=== PATIENT | female | born 1960 | race Caucasian/White ===

== ENCOUNTER 2020-12-01 07:10 | Outpatient (CLI) | payer OTHER, SELFPAY ==
--- NOTE | ~2020-12-01 | XR_ITS ---
XR foot RT min 3V DATE: 12/01/2020 07:47 INDICATION: Chronic bilateral foot pain. TECHNIQUE: 4 weightbearing views COMPARISON: None FINDINGS: Prominent plantar calcaneal enthesopathy without associated erosive change or periostitis. There is osteoarthritic change at the tarsometatarsal joints, particularly at the first tarsometatars al joint. There is osteoarthritic change of mild to moderate degree at the first metatarsophalangeal joint. No fracture, dislocation, periosteal reaction or bone destruction. IMPRESSION: Prominent calcaneal enthesopathy Polyarticular osteoarthritis Reviewed, dictated and finalized at location B.
--- NOTE | ~2020-12-01 | XR_ITS ---
XR foot LT min 3V DATE: 12/01/2020 07:48 INDICATION: Chronic bilateral foot pain TECHNIQUE: 4 weightbearing views COMPARISON: None FINDINGS: Prominent plantar calcaneal enthesopathy without erosive change or periostitis. There is hallux valgus and bunion deformity. There is mild osteoarthritic change at the first metatarsophalangeal joint. No fracture, dislocation, periosteal reaction or bone destruction is detected. IMPRESSION: Prominent plantar calcaneal enthesopathy Hallux valgus and bunion deformity Mild osteoarthritic arthritis at first metatarsophalangeal joint Reviewed, dictated and finalized at location B.
== END 2020-12-01 07:11 | disposition home or self-care (01) ==
LOC: CHSLAB 07:14 → CHSIMG 07:14
PROVIDERS: PCP Internal Medicine; Visit Provider Podiatrist
DX: M79.672 Pain in left foot (principal); M79.671 Pain in right foot; M21.612 Bunion of left foot
CPT/HCPCS: 73630

== ENCOUNTER 2021-05-06 09:35 | Outpatient (CLI) | payer OTHER, SELFPAY ==
[2021-05-06 10:25] LABS: SARS-CoV-2 Ag Negative (Negative)
[2021-05-06 10:31] LABS: Influenza Control Valid (Valid)
== END 2021-05-06 09:36 | disposition home or self-care (01) ==
LOC: CHSLAB 09:40
PROVIDERS: PCP Internal Medicine; Visit Provider Internal Medicine
DX: J06.9 Acute upper respiratory infection, unspecified (principal); Z20.822 Contact with and (suspected) exposure to COVID-19
CPT/HCPCS: 87081; 87426; 87804; 87880; C9803

== ENCOUNTER 2021-06-08 07:16 | Outpatient (CLI) | payer OTHER, SELFPAY ==
--- NOTE | ~2021-06-08 | MM_ITS ---
EXAMINATION: MM screening brandy BI w [place] HISTORY: Screening TECHNIQUE: Craniocaudal and mediolateral oblique 3-D tomosynthesis images were obtained and synthetic 2-D images were generated. CAD analysis was submitted and interpreted. COMPARISON: 05/18/2018 BREAST PARENCHYMAL COMPOSITION: There are scattered areas of fibroglandular density. FINDINGS: There is no evidence of suspicious mass, calcification, or architectural distortion to sugg est malignancy in either breast. There has been no suspicious interval change. IMPRESSION: 1. No mammographic evidence of malignancy. 2. Recommend routine screening mammography in one year. BI-RADS Category 1: Negative Reviewed, dictated and finalized at location A. EXPERIENCE ARCHITECT
== END 2021-06-08 07:17 | disposition home or self-care (01) ==
LOC: CHSIMG 07:19
PROVIDERS: PCP Internal Medicine; Visit Provider Obstetrics & Gynecology
DX: Z12.31 Encounter for screening mammogram for malignant neoplasm of breast (principal)
CPT/HCPCS: 77063; 77067

== ENCOUNTER 2022-06-10 08:35 | Outpatient (CLI) | payer BC, SELFPAY ==
--- NOTE | ~2022-06-10 | MM_ITS ---
EXAMINATION: MM screening brandy BI w [place] HISTORY: Screening mammogram TECHNIQUE: Craniocaudal and mediolateral oblique 3-D tomosynthesis images were obtained and synthetic 2-D images were generated. CAD analysis was submitted and interpreted. COMPARISON: June 2021 bilateral screening mammogram March 20, 2019 diagnostic left mammogram and limited left breast ultrasound examination July 13, 2018 left mammogram and limited left breast ultrasound May 18, 2018 bilateral screening mammogram BREAST PARENCHYMAL COMPOSITION: There are scattered areas of fibroglandular density. FINDINGS: Slightly diminished size of a circumscribed approximately 4 mm opacity in the anterior inne r mid left breast since June 08, 2021. There is no evidence of suspicious mass, calcification, or architectural distortion to suggest malignancy in either breast. There has been no suspicious interva l change. IMPRESSION: 1. No mammographic evidence of malignancy. 2. Recommend routine screening mammography in one year. BI-RADS Category 2: Benign finding(s). Reviewed, dictated and finalized at location A. ING CONSULTANT
== END 2022-06-10 08:36 | disposition home or self-care (01) ==
LOC: CHSIMG 08:38
PROVIDERS: PCP Internal Medicine; Visit Provider Nurse Practitioner Obstetrics & Gynecology
DX: Z12.31 Encounter for screening mammogram for malignant neoplasm of breast (principal)
CPT/HCPCS: 77063; 77067

== ENCOUNTER 2023-02-02 08:05 | Outpatient (RCR) | payer OTHER, SELFPAY ==
[2023-02-02 08:19] VITALS: BMI 36.8
[2023-02-02 09:43] VITALS: BMI 36.8
== END 2023-04-25 12:05 | disposition home or self-care (01) ==
LOC: ANHDMC 08:05
PROVIDERS: PCP Internal Medicine; Visit Provider Internal Medicine
DX: R63.5 Abnormal weight gain (principal); Z71.3 Dietary counseling and surveillance
CPT/HCPCS: 97802

== ENCOUNTER 2023-02-15 08:54 | Emergency (ER) | payer OTHER, SELFPAY ==
--- NOTE | ~2023-02-15 | CT_ITS ---
EXAMINATION: CT abdomen pelvis wo con DATE: 02/15/2023 10:18 INDICATION: Left flank pain, left lower quadrant pain, nausea and hematuria. TECHNIQUE: Computed tomography (CT) of the abdomen and pelvis was performed without intravenous contr ast. Automated exposure control and iterative reconstruction technique were employed. The dose-length product was 514.89 mGy-cm. COMPARISON: None FINDINGS: Mild bibasilar discoid atelectasis. Heart size is normal. No pericardial or pleural effusion. Liver, gallbladder, spleen, pancreas and bilateral adrenal glands are normal. Right kidney and ureter are no rmal with no urolithiasis. 3-4 mm stone at the left ureteropelvic junction with mild left hydronephro sis. No other urolithiasis. Bowels including the appendix are normal. Bladder, anteverted uterus and bilateral adnexa are unremarkable. No free intraperitoneal gas or fluid. No pathologically enlarged a bdominal or pelvic lymphadenopathy. Moderate thoracolumbar spondylosis. IMPRESSION: 1. 3-4 mm stone at the left ureteral pelvic junction with mild left hydronephrosis. Reviewed, dictated and finalized at location A. IMPRESSION: 1. 3-4 mm stone at the left ureteral pelvic junction with mild left hydronephro sis.
[2023-02-15 09:00] VITALS: BP 146/74; PULSE 71; RESP 20; TEMP 36.9; O2SAT 99
--- NOTE | 2023-02-15 09:15 | ED.ABDPAIN ---
HPI - Abdominal Pain General Chief Complaint: Abdominal Pain Stated Complaint: abdominal pain Time Seen by Provider: 02/15/23 09:14 Source: patient Mode of arrival: ambulatory Limitations: no limitations History of Present Illness HPI narrative: 62-year-old female with a history of hypertension, status post 26 years ago, recent antibiotic treatment for a dental procedure presents to the ER with 1 hour history of -- left lower quadrant / left flank abdominal pain. Pain is continuous. no fever or chills. No nausea /vomiting / diarrhea. -- Has dysuria and hematuria. No history of kidney stones. MD elicited complaint: abdominal pain Pertinent past history: none Onset (ago): hour(s) ( Started 1 hour ago.) Pain Consistency: constant Location: LLQ Severity: moderate Quality: aching Radiation: L flank Exacerbating factors: nothing Relieving factors: nothing Associated symptoms: denies other symptoms Related Data Allergies Allergy/AdvReac Type Severity Reaction Status Date / Time No Known Allergies Allergy Verified 02/15/23 09:27 Review of Systems Review of Systems: All systems reviewed & are unremarkable except as noted in HPI and below Constitutional: Constitutional: Reports as per HPI and Reports no additional constitutional complaints Eyes: Eyes: Reports as per HPI and Reports no additional eye complaints ENT: Reports system reviewed and no additional complaints, except as documented and Reports as per HPI Cardiovascular: Cardiovascular: Reports as per HPI and Reports no additional cardiovascular complaints Respiratory: Respiratory: Reports as per HPI and Reports no additional respiratory complaints Gastrointestinal: Gastrointestinal: Reports as per HPI, Reports no additional gastrointestinal complaints and Reports abdominal pain Genitourinary: Genitourinary: Reports no additional female genitourinary complaints and Reports as per HPI Musculoskeletal: Musculoskeletal: Reports no additional musculoskeletal complaints and Reports as per HPI Integumentary/Breasts: Skin/Breast: Reports system reviewed and no additional complaints, except as docu and Reports as per HPI Neurologic: Reports system reviewed and no additional complaints, except as documented and Reports as per HPI Psychiatric: Psychiatric: Reports no additional psychiatric complaints and Reports as per HPI Endocrine: Endocrine: Reports no additional endocrine complaints and Reports as per HPI Hematologic/Lymphatic: Hematologic/Lymphatic: Reports no additional hematologic/lymphatic complaints and Reports as per HPI Allergic/Immunologic: Allergic/Immunologic: Reports no additional allergic/immunologic complaints and Reports as per HPI PMFSH Past Medical History Medical History (Updated 02/15/23 @ 10:59 by Soham Almeida MD) section wound complication Hypertension Social History Social History Spiritual care concerns: No Exam Const: General: no acute distress Nutritional Appearance: well nourished Orientation/consciousness: patient oriented x3 Limitations: no limitations HENMT: Head: normal to inspection Ears: external ears normal Face/Nose/Sinus: Normal external nose present Face and sinus: normal facial exam Mouth: Yes Normal oral and palatal mucosa present Throat: posterior oropharynx normal Eyes: Conjunctivae: conjunctivae normal Pupils: Equal, round and reactive pupils present EOM: EOMs intact bilaterally Direct Ophthalmoscopy: no photophobia Neck: Neck: normal visual inspection and no lymphadenopathy Chest: Chest palpation & inspection: normal inspection of the chest Resp: Effort & Inspection: normal respiratory effort Auscultation: clear to auscultation bilaterally Cardio: Rate: regular rate Rhythm: regular rhythm GI: GI Palp: Yes Soft to palpation Other: tenderness over the left lower quadrant and left flank. : General: Yes CVA tenderness Back/Spine/Pelvis: Back: CVA tenderness
[2023-02-15 09:30] LABS: Appearance Urine Slightly Cloudy (Clear); Bilirubin Urine Negative (Negative); Blood Urine 3+ (Negative); Color Urine Light Yellow (Yellow); Glucose Urine UA Negative (Negative); Ketones Urine Negative (Negative); Leukocyte Esterase Ur 1+ LEU/UL (Negative); Nitrate Urine Negative (Negative); Protein Urine Trace (Negative); Urobilinogen Urine 0.2 mg/dL (0.2-1.0); pH Urine 7.5 (5.0-8.0)
[2023-02-15 09:38] LABS: Basophils Absolute Auto 0.06 K/mm3 (0.00-0.10); Basophils Percent Auto 0.7 % (0.0-1.0); Eosinophils Absolute Auto 0.11 K/mm3 (0.02-0.50); Eosinophils Percent Auto 1.2 % (1.0-6.0); Hemoglobin 14.7 g/dL (12.0-15.0); Immature Granulocyte Absolute 0.05 K/mm3 (0.00-0.00); Immature Granulocyte Percent A 0.6 % (0.0-0.0); Lymphocytes Percent Auto 23.1 % (18.0-42.0); Mean Corpuscular HGB Conc 32.7 g/dL (32.0-36.0); Mean Corpuscular Hemoglobin 26.9 pg (27.0-31.0); Mean Corpuscular Volume 82.4 fL (78.0-102.0); Mean Platelet Volume 9.7 fl (9.2-11.8); Monocytes Absolute Auto 0.45 K/mm3 (0.10-0.90); Neutrophils Absolute Auto 6.3 K/mm3 (1.7-7.2); Neutrophils Percent Auto 69.4 % (50.0-70.0); Platelet Count Result 285 K/mm3 (150-420); Red Blood Count 5.46 M/mm3 (4.20-5.40); Red Cell Distribution Width 14.6 % (11.6-14.4); White Blood Count 9.1 K/mm3 (4.8-10.8)
[2023-02-15 09:40] LABS: Add Urine Microscopic? YES; Bacteria Urine Trace /hpf; RBC Urine 51-75 /hpf (0-2); Squamous Epithelial Cell Urine Few /hpf (Few)
[2023-02-15] MEDS: LACTATED RINGERS 500 ML 999 ML IV CONT (09:43)
[2023-02-15 10:00] LABS: Alanine Aminotransferase 21 U/L (14-59); Albumin Level 3.3 g/dL (3.4-5.0); Alkaline Phosphatase 79 U/L (46-116); Anion Gap 13 mmol/L (8-16); Aspartate Amino Transferase 11 U/L (15-37); Bilirubin,Total 0.6 mg/dL (0.00-1.00); Blood Urea Nitrogen 21 mg/dL (7-18); Carbon Dioxide 26 mmol/L (21-32); Chloride 102 mmol/L (98-108); Estimated CRCL calculation 53 ml/min; Estimated Glomerular Filt Rate 51; Glucose 118 mg/dL (70-99); Osmolality Calculated 296 mOsm/kg (285-295); Potassium 3.1 mmol/L (3.5-5.1); Sodium 141 mmol/L (136-145); Total Protein 6.8 g/dL (6.4-8.2)
[2023-02-15] MEDS: ONDANSETRON INJ 4 MG/2 ML VIAL IV PUSH (10:00)
[2023-02-15 10:01] LABS: Lipase 71 U/L (16-77); Troponin I < 4.0 ng/L (0.00-60.4)
[2023-02-15] MEDS: HYDROmorphone HCL INJ (*CRX) 2 MG/ML VIAL 0.5 MG IV PUSH (10:01)
[2023-02-15 10:05] VITALS: BP 157/84; PULSE 80; RESP 20; O2SAT 100
[2023-02-15 10:05] LABS: Lactic Acid Reflex 1.7 mmol/L (0.4-2.0)
[2023-02-15] MEDS: LACTATED RINGERS 1,000 ML 999 ML IV CONT (10:40)
[2023-02-15] MEDS: KETOROLAC 30 MG/ML VIAL (*BKC) IV PUSH (10:40)
[2023-02-15] MEDS: TAMSULOSIN HCL 0.4 MG CAPSULE PO (10:44)
[2023-02-15 11:07] VITALS: BP 121/63; PULSE 84; RESP 20; O2SAT 95
--- NOTE | 2023-02-18 13:08 | PC.NURSE ---
final urine culture report reviewed. 50,000-100,000 escherichia coli reported. erp, dr busch, reviewed chart. states no change in pt plan of care.
== END 2023-02-15 11:30 | disposition home or self-care (01) ==
PROVIDERS: Emergency Provider Internal Medicine Critical Care Medicine; PCP Internal Medicine
DX: N20.0 Calculus of kidney (principal); I10 Essential (primary) hypertension
CPT/HCPCS: 36415; 74176; 80053; 81001; 83605; 83690; 84484; 85025; 87077; 87086; 87088; 87186; 96361; 96374; 96375; 99284; A9270; J1170; J1885; J2405; J7120

== ENCOUNTER 2023-02-15 23:18 | Inpatient (IN) | payer OTHER, SELFPAY ==
--- NOTE | 2023-02-15 | ECG_ITS ---
Measurements Intervals [place] Rate: 99 P: 5 MT: 147 QRS: 23 QRSD: 87 T: 0 QT: 335 QTc: 430 Interpretive Statements SINUS RHYTHM POSSIBLE ANTERIOR MYOCARDIAL INFARCTION , PROBABLY OLD [30 ms Q WAVE IN V3/V4, OR R < 0.2 mV IN V4] POSSIBLE INFERIOR MYOCARDIAL INFARCTION , PROBABLY OLD [30 ms Q WAVE IN II/aVF] LOW-VOLTAGE QRS IN PRECORDIAL LEADS ABNORMAL ECG NO PREVIOUS ECG AVAILABLE FOR COMPARISON Electronically Signed On 02-16-2023 17:12:30 CDT by Lorenzo Stewart M.D.
--- NOTE | ~2023-02-15 | XR_ITS ---
EXAMINATION: XR retrograde pyelo w/stent LT DATE: 02/16/2023 03:47 INDICATION: Nephrolithiasis with stone placement TECHNIQUE: 13 fluoroscopic images of the abdomen and pelvis were obtained during procedure performed by Dr. Porras. Radiologist was not present for the imaging or procedure. The amount of fluoroscopy ti me used during this procedure was 0.3 minutes. COMPARISON: CT dated 02/15/2023 FINDINGS: Line image demonstrates a catheter and wire advanced into the left ureter. Subtle density s een alongside the wire and the proximal left ureter corresponding to the previously noted UPJ stone. This is not identified on the subsequent images. Contrast injection into the right renal collecting s ystem demonstrates no significant hydronephrosis. A left intrarenal stent has been placed on the eryn l images with proximal tip in the left renal pelvis and distal loop formed in the bladder. IMPRESSION: 1. Left internal ureteral stent placement in expected position. 2. Renal stone initially seen at the ureteropelvic junction is not visualized on subsequent images an d has either been displaced or extracted. Correlate with procedure note for further detail. Reviewed, dictated and finalized at location A. IMPRESSION: 1. Left internal ureteral stent placement in expected position. 2. Renal stone initially seen at the ureteropelvic junction is not visualized o n subsequent images and has either been displaced or extracted. Correlate with procedure note for further detail.
--- NOTE | ~2023-02-15 | XR_ITS ---
Portable chest x-ray Comparison: 02/16/2023 Clinical History: Septic shock Findings: Right IJ line is unchanged. Probable minimal hazy left basilar airspace disease. Right christiano g clear. Cardiomediastinal silhouette is stable. Bones and soft tissues are unremarkable. Impression: Minimal haziness left lung base, nonspecific. Correlate for atelectasis or pneumonia. Stable right IJ line. Reviewed, dictated and finalized at location . Impression: Minimal haziness left lung base, nonspecific. Correlate for atelectasis or pneu monia. Stable right IJ line.
--- NOTE | ~2023-02-15 | XR_ITS ---
Portable chest x-ray Comparison: 02/18/2023 Clinical History: Shortness of breath Findings: There is patchy left basilar airspace disease and probable minimal left pleural effusion. There is minimal haziness medial right lung base. Cardiomediastinal silhouette is stable. Bones and soft tissues are unremarkable. Impression: Probable bibasilar pulmonary edema/atelectasis with minimal left pleural effusion. Correlate clinical ly for pneumonia. Reviewed, dictated and finalized at location . Impression: Probable bibasilar pulmonary edema/atelectasis with minimal left pleural effusi on. Correlate clinically for pneumonia.
--- NOTE | ~2023-02-15 | XR_ITS ---
EXAMINATION: XR chest 1V portable Exam Date/Time: 02/18/2023 15:15 CDT HISTORY: Shortness of breath Comparison: 02/06/2023. RESULT: Lines, tubes, and devices: Right IJ central line terminating at the cavoatrial junction. Lungs and pleura: Patchy segmental airspace disease in the right mid lung with indistinct vessels bi laterally. Streaky subsegmental bibasilar opacities. Minimal bilateral costophrenic angle blunting. Cardiomediastinal silhouette: Stable. Other: No acute osseous or upper abdominal finding. IMPRESSION: Right IJ central line, in good position. Patchy airspace disease in the right mid lung, may represent atelectasis/asymmetric edema. Developing pneumonia or aspiration are not excluded. Minimal bibasilar scar/atelectasis and possible trace bilateral effusions. Reviewed, dictated and finalized at [facility]. IMPRESSION: Right IJ central line, in good position. Patchy airspace disease in the right mid lung, may represent atelectasis/asymme tric edema. Developing pneumonia or aspiration are not excluded. Minimal bibasilar scar/atelectasis and possible trace bilateral effusions.
--- NOTE | ~2023-02-15 | XR_ITS ---
Portable chest x-ray Comparison: None Clinical History: Line placement Findings: Right IJ line is in place, tip at the SVC or possibly just the right atrium. No pneumothor ax. Possible minimal central pulmonary haziness. No pleural effusion. Cardiomediastinal silhouette is minimal prominent, possibly due to AP technique. Bones and soft tissues are unremarkable. Impression: Right IJ line in place, as above. No pneumothorax. Possible minimal central haziness. Correlate for minimal central pulmonary edema. Reviewed, dictated and finalized at location . Impression: Right IJ line in place, as above. No pneumothorax. Possible minimal central haziness. Correlate for minimal central pulmonary shay marshall
[2023-02-15 23:18] VITALS: BP 106/65; PULSE 101; RESP 20; TEMP 37.2; O2SAT 94
[2023-02-15 23:39] LABS: Basophils Percent Auto 0.4 % (0.2-1.2); Eosinophils Absolute Auto 0.2 K/mm3 (0-0.3); Eosinophils Percent Auto 1.8 % (0-4.4); Hematocrit 40.6 % (37.0-47.0); Hemoglobin 13.2 g/dL (12.0-15.0); Immature Granulocyte Absolute 0.14 K/mm3 (0.00-0.031); Immature Granulocyte Percent A 1.3 % (0-0.5); Lymphocytes Absolute Auto 0.44 K/mm3 (0.9-3.2); Mean Corpuscular HGB Conc 32.5 g/dl (32-36); Mean Platelet Volume 9.7 fl (7.4-10.4); Monocytes Percent Auto 0.3 % (2.6-8.5); Neutrophils Absolute Auto 10.1 K/mm3 (1.3-6.7); Neutrophils Percent Auto 92.2 % (45.5-73.1); Platelet Count Result 143 k/mm3 (150-375); Red Blood Count 4.89 M/mm3 (4.2-5.4); Red Cell Distribution Width 15.1 % (11.5-14.5); White Blood Count 10.9 K/mm3 (4.5-10.0)
[2023-02-15 23:49] LABS: INR 1.6; Prothrombin Time 19.8 Seconds (11.1-14.7)
[2023-02-15 23:50] LABS: Partial Thromboplastin Time 60.1 SECONDS (22.3-36.8)
[2023-02-15 23:51] VITALS: BP 87/60; PULSE 97; RESP 27; O2SAT 91
[2023-02-15 23:56] VITALS: BP 87/63; PULSE 96; RESP 27; O2SAT 93
[2023-02-16] VITALS (71 sets, daily range): BP systolic 62–159; BP diastolic 41–109; PULSE 74–110; RESP 15–40; TEMP 36.3–37.6; O2SAT 34–98; BMI 40.8
[2023-02-16 00:01] LABS: Alanine Aminotransferase 24 U/L (6-35); Albumin Level 3.1 g/dL (3.5-5.1); Alkaline Phosphatase 168 U/L (38-126); Anion Gap 11 mmol/L (8-16); Aspartate Amino Transferase 37 U/L (14-36); Blood Urea Nitrogen 31 mg/dL (7-17); Calcium 8.3 mg/dL (8.4-10.2); Carbon Dioxide 19 mmol/L (22-30); Chloride 100 mmol/L (98-107); Estimated CRCL calculation 35 ml/min; Estimated Glomerular Filt Rate 30; Glucose 103 mg/dL (65-110); Sodium 130 mmol/L (137-145)
--- NOTE | 2023-02-16 00:24 | ED.GENADULT ---
HPI - General Adult General Chief complaint: Altered Mental Status <Deonte Hernandez PA-C - Last Filed: 02/16/23 04:16> Stated complaint: altered loc <Deonte Hernandez PA-C - Last Filed: 02/16/23 04:16> Time Seen by Provider: 02/16/23 00:09 <Deonte Hernandez PA-C - Last Filed: 02/16/23 04:16> Source: patient <Deonte Hernandez PA-C - Last Filed: 02/16/23 04:16> Mode of arrival: EMS <OTIS Rodriguez Last Filed: 02/16/23 04:16> Limitations: no limitations <Deonte Hernandez PA-C - Last Filed: 02/16/23 04:16> History of Present Illness HPI narrative: This is a 62-year-old female who presents to the ED via EMS for altered mental status. Patient was seen at a [facility] hospital earlier today and diagnosed with kidney stone a year and potential UTI. Family states that she started to become a little altered today so they called the EMS. They state this happened shortly after taking her second round of pain meds at home. Reports she became confused, diaphoretic and slightly slurred speech. Patient reports that she still has right lower back pain. Denies fevers, chills. Reports general lightheadedness. Family states that she got a dose of the pain medication and Flomax today. They misunderstood. Tamsulosin is not on her name antibiotic. They do not believe they have a prescription for any antibiotics from the hospital. <Deonte Hernandez PA-C - Last Filed: 02/16/23 04:16> Related Data Home medications: Home Medications Medication Instructions Recorded Confirmed Daily Vitamin C Pack 1 tablet PO DAILY 02/16/23 02/16/23 Vitamin D3 1 tablet PO DAILY 02/16/23 02/16/23 amlodipine 5 mg tablet 5 mg PO DAILY 02/16/23 02/16/23 wmqiovc-iknjjlsst-frpo 1 tablet PO DAILY 02/16/23 02/16/23 losartan 100 1 tablet PO DAILY 02/16/23 02/16/23 mg-hydrochlorothiazide 25 mg tablet progesterone micronized 100 mg 100 mg PO DAILY 02/16/23 02/16/23 capsule solifenacin 5 mg tablet 5 mg PO DAILY 02/16/23 02/16/23 <Deonte Hernandez PA-C - Last Filed: 02/16/23 04:16> Allergies/adverse reactions: Allergies Allergy/AdvReac Type Severity Reaction Status Date / Time No Known Allergies Allergy Verified 02/15/23 09:27 <OTIS Rodriguez Last Filed: 02/16/23 04:16> Review of Systems Review of Systems: All systems as dictated in HPI <OTIS Rodriguez Last Filed: 02/16/23 04:16> [facility] Past Medical History Medical History: Medical History (Updated 02/16/23 @ 13:11 by Renee Wong MD) Calculus of distal left ureter section wound complication Hypertension Kidney stone Sepsis Septic shock due to urinary tract infection <OTIS Rodriguez Last Filed: 02/16/23 04:16> Family History Family History: Family History (Updated 02/16/23 @ 05:19 by Santos Chaidez RN) Mother Hypertension COPD (chronic obstructive pulmonary disease) Father Hypertension Heart attack Sibling Hypertension <OTIS Rodriguez Last Filed: 02/16/23 04:16> Social History Social History: Social History Smoking packs per day: 0.25 Smoking cigarettes per day: 5.0 Years smoked: 8 Smoking pack-years: 2.00 Smoking status: Former smoker Alcohol intake: current Drinks per week: 1 Substance use: never Lack of Transportation: No Lack of Food: Never True Current Housing: I Have Housing Concerned About Future Housing: No Difficulty Paying Gas/Electric Bills: No Difficulty Paying for Meds: No Currently Unemployed: No Education: Associate Degree Difficulty w/ Childcare or Family Care: No Spiritual care concerns: No <OTIS Rodriguez Last Filed: 02/16/23 04:16> Exam Narrative: GENERAL: Appears in pain. HEAD: Normocephalic, atraumatic. EYES: PERRLA and EOMI. ENT: Nares clear, no rhinorrhea or epistaxis. Mucous membranes moist. Oropharynx without tonsillar hypertrop
[2023-02-16] MEDS: SODIUM CHLORIDE 0.9% IV 1,000 ML 999 ML IV CONT ×4 (00:28→05:47)
[2023-02-16 01:35] LABS: Lactic Acid Reflex 4.9 mmol/L (0.7-2.0)
[2023-02-16] MEDS: NOREPINEPHRINE 8 MG/D5W 250 ML 8 MG/250 ML BAG 9.38 MG IV CONT (01:41)
[2023-02-16] MEDS: NOREPINEPHRINE 8 MG/D5W 250 ML 8 MG/250 ML BAG 18.75 MG IV CONT (02:20)
--- NOTE | 2023-02-16 02:36 | PC.NURSE ---
Per verbal order read back from PAC Deonte Martinez, Levophed titrated to 20 mcg/min at this time.
--- NOTE | 2023-02-16 02:46 | WPDURCON ---
Assessment and Plan Assessment and plan (1) Septic shock due to urinary tract infection: Code(s): A41.9 - Sepsis, unspecified organism; R65.21 - Severe sepsis with septic shock; N39.0 - Urinary tract infection, site not specified Status: Acute (2) Calculus of distal left ureter: Code(s): N20.1 - Calculus of ureter Status: Acute Plan Left proximal ureter stone with possible sepsis. We discussed the need for a cystoscopy with left retrograde pyelogram and stent placement. We reviewed risks of stent pain, worsening infection, and inability to place the stent. We reviewed the need for definitive stone management once the infection has cleared. She will need admission to the medical service and ICU after surgery. She will be followed by my urology colleagues from [facility] after the procedure. Urology Consult Note HPI Date Seen: 02/16/23 Requesting Physician: Rasheed Porras MD Primary Care Provider: Charles López MD Consult Narrative Narrative: Sara Gore is a 62 year old female with a left ureter stone. She presented on 02/15/23 to [facility] with left sided pain. She was discharged with pain medication. She developed altered mental status and presented to [facility]. She was hypotensive on admission to the ER. He lactate was elevated at 4.9 and her creatinine was elevated at 1.7. She has responded to antibiotics and fluids and her MAP is now 70. She endorses continued left sided pain, but not as bad as earlier today. [facility] Past Medical History Medical History (Updated 02/16/23 @ 02:53 by Deonte Hernandez PA-C) section wound complication Hypertension Social History Social History Spiritual care concerns: No Meds Home Medications and Allergies Home Medications Medication Instructions Recorded Confirmed Type hydrocodone 5 mg-acetaminophen 325 1 tablet PO Q6H PRN pain #14 tabs 02/15/23 Rx mg tablet tamsulosin 0.4 mg capsule (Flomax) 0.4 mg PO DAILY #7 caps 02/15/23 Rx Allergies Allergy/AdvReac Type Severity Reaction Status Date / Time No Known Allergies Allergy Verified 02/15/23 09:27 Vital Signs Vital Signs - 24 hr 02/15/23 23:18 02/16/23 00:50 02/15/23 23:51 Temperature 37.2 C Pulse Rate 101 H 88 97 Respiratory Rate 20 15 27 H Blood Pressure 106/65 93/62 L 87/60 L Pulse Oximetry 94 97 91 Oxygen Delivery Room Air Oxygen Flow Rate 02/15/23 23:56 02/16/23 01:41 02/16/23 02:20 Temperature Pulse Rate 96 88 87 Respiratory Rate 27 H Blood Pressure 87/63 L 79/56 L 62/42 L Pulse Oximetry 93 Oxygen Delivery Oxygen Flow Rate 02/16/23 01:01 02/16/23 01:05 02/16/23 01:07 Temperature Pulse Rate 84 83 83 Respiratory Rate 26 H 19 22 H Blood Pressure 69/54 L 64/48 L 70/49 L Pulse Oximetry 96 94 95 Oxygen Delivery Oxygen Flow Rate 02/16/23 01:22 02/16/23 01:37 02/16/23 02:16 Temperature Pulse Rate 90 87 82 Respiratory Rate 16 17 24 H Blood Pressure 77/46 L 86/67 L 75/41 L Pulse Oximetry 95 96 34 L Oxygen Delivery Oxygen Flow Rate 02/16/23 02:27 02/16/23 02:34 02/16/23 02:37 Temperature Pulse Rate 86 85 Respiratory Rate 26 H Blood Pressure 83/48 L 74/41 L Pulse Oximetry 98 98 Oxygen Delivery Nasal Cannula Oxygen Flow Rate 2 02/16/23 02:35 Temperature Pulse Rate 84 Respiratory Rate 25 H Blood Pressure 97/59 L Pulse Oximetry Oxygen Delivery Oxygen Flow Rate Exam Const: General: cooperative and obese Resp: Effort & Inspection: normal respiratory effort Psych: Appearance: grossly normal Mental Status: mental status grossly normal Results Labs 02/15/23 23:31 02/15/23 23:31 Labs: Short CBC 02/15/23 Range/Units 23:31 WBC 10.9 H (4.5-10.0) K/mm3 Hgb 13.2 (12.0-15.0) g/dL Hct 40.6 (37.0-47.0) % Plt Count 143 L (150-375) k/mm3 BMP 02/15/23 23:31 Sodium 130 L
--- NOTE | 2023-02-16 02:55 | WPDANESEPP ---
Anes - Eval Pre Procedure Procedure: Operation Date: 02/16/23 03:30 Proposed Procedures p Cysto, RPG, Stone Ext, Stent Placement(Left) - Rasheed Porras MD Date/Time: 02/16/23 02:55 Preop Diagnosis: Abdominal pain with contractions Pre Op Diagnosis: altered loc Patient Data Age: 62 Gender: F Height: 1.63 m Weight: 98 kg Last Vital Signs Temp 98.9 F 02/15/23 23:18 Pulse 84 02/16/23 02:35 Resp 25 H 02/16/23 02:35 BP 97/59 L 02/16/23 02:35 Pulse Ox 98 02/16/23 02:37 O2 Del Method Nasal Cannula 02/16/23 02:37 O2 Flow Rate 2 02/16/23 02:37 Allergies Allergy/AdvReac Type Severity Reaction Status Date / Time No Known Allergies Allergy Verified 02/15/23 09:27 Home Medications Medication Instructions Recorded Confirmed Type hydrocodone 5 mg-acetaminophen 325 1 tablet PO Q6H PRN pain #14 tabs 02/15/23 Rx mg tablet tamsulosin 0.4 mg capsule (Flomax) 0.4 mg PO DAILY #7 caps 02/15/23 Rx Laboratory Tests 02/15/23 02/16/23 23:31 01:00 WBC 10.9 H K/mm3 (4.5-10.0) RBC 4.89 M/mm3 (4.2-5.4) Hgb 13.2 g/dL (12.0-15.0) Hct 40.6 % (37.0-47.0) MCV 83.0 fl (80-100) MCH 27.0 pg (26-34) MCHC 32.5 g/dl (32-36) RDW 15.1 H % (11.5-14.5) Plt Count 143 L k/mm3 (150-375) MPV 9.7 fl (7.4-10.4) Immature Gran % (Auto) 1.3 H % (0-0.5) Neut % (Auto) 92.2 H % (45.5-73.1) Lymph % (Auto) 4.0 L % (18.3-44.2) [place] % (Auto) 0.3 L % (2.6-8.5) Eos % (Auto) 1.8 % (0-4.4) Baso % (Auto) 0.4 % (0.2-1.2) Lymph # (Auto) 0.44 L K/mm3 (0.9-3.2) [place] # (Auto) 0.0 L K/mm3 (0.1-0.6) Eos # (Auto) 0.2 K/mm3 (0-0.3) Baso # (Auto) 0.0 K/mm3 (0.0-0.1) Abs Immat Gran (auto) 0.14 H K/mm3 (0.00-0.031) Absolute Neuts (auto) 10.1 H K/mm3 (1.3-6.7) Absolute Nucleated RBC 0.0 K/mm3 (0.0-0.012) Nucleated RBC % 0.0 % (0.0-0.2) PT 19.8 H Seconds (11.1-14.7) INR 1.6 APTT 60.1 H SECONDS (22.3-36.8) Sodium 130 L mmol/L (137-145) Potassium 3.0 L mmol/L (3.4-5.0) Chloride 100 mmol/L (98-107) Carbon Dioxide 19 L mmol/L (22-30) Anion Gap 11 mmol/L (8-16) BUN 31 H mg/dL (7-17) Creatinine 1.70 H mg/dL (0.7-1.0) Estim Creat Clear Calc 35 ml/min Estimated GFR 30 L (59 - ) Glucose 103 mg/dL (65-110) Lactic Acid 4.9 H* mmol/L (0.7-2.0) Calcium 8.3 L mg/dL (8.4-10.2) Total Bilirubin 1.0 mg/dL (0.2-1.3) AST 37 H U/L (14-36) ALT 24 U/L (6-35) Alkaline Phosphatase 168 H U/L (38-126) Total Protein 6.0 L g/dL (6.3-8.2) Albumin 3.1 L g/dL (3.5-5.1) : gestational age HCG: positive Patient hx anesthesia problems: none Family hx anesthesia problems: none Results Review: All pre-operative results and documents have been reviewed as part of the pre-operative evaluation. [facility] Past Medical History Medical History Calculus of distal left ureter section wound complication Hypertension Kidney stone Sepsis Septic shock due to urinary tract infection Social History Social History Spiritual care concerns: No Exam Day of Procedure 02/16/23 02:55 Patient weight: morbidly obese Heart: regular rate and rhythm Lungs: clear to auscultation
--- NOTE | 2023-02-16 03:01 | WPDHPUPDATE1 ---
History and Physical Update Update Date/Time: 02/16/23 03:01 History and Physical has been reviewed, including an updated exam of the patient. There are NO changes in the patient's condition. Risks, benefits, and alternatives have been discussed and questions answered. Patient agrees to proceed with procedure.
--- NOTE | 2023-02-16 03:16 | WPDANESEPPF ---
Anes - Initial Pre Proc Eval Procedure: Operation Date: 02/16/23 03:30 Proposed Procedures p Cysto, RPG, Stone Ext, Stent Placement(Left) - Rasheed Porras MD Date/Time: 02/16/23 03:16 Surgeon: Rasheed Porras MD Pre Op Diagnosis: altered loc Patient Data Age: 62 Gender: F Height: 1.63 m Weight: 98 kg Last Vital Signs Temp 37.2 C 02/15/23 23:18 Pulse 90 02/16/23 02:57 Resp 15 02/16/23 02:57 BP 96/58 L 02/16/23 02:57 Pulse Ox 97 02/16/23 02:57 O2 Del Method Nasal Cannula 02/16/23 02:37 O2 Flow Rate 2 02/16/23 02:37 Allergies Allergy/AdvReac Type Severity Reaction Status Date / Time No Known Allergies Allergy Verified 02/15/23 09:27 Home Medications Medication Instructions Recorded Confirmed Type amlodipine 5 mg tablet 5 mg PO DAILY 02/16/23 02/16/23 History losartan 100 1 tablet PO DAILY 02/16/23 02/16/23 History mg-hydrochlorothiazide 25 mg tablet progesterone micronized 100 mg 100 mg PO DAILY 02/16/23 02/16/23 History capsule solifenacin 5 mg tablet 5 mg PO DAILY 02/16/23 02/16/23 History Laboratory Tests 02/15/23 02/16/23 23:31 01:00 WBC 10.9 H K/mm3 (4.5-10.0) RBC 4.89 M/mm3 (4.2-5.4) Hgb 13.2 g/dL (12.0-15.0) Hct 40.6 % (37.0-47.0) MCV 83.0 fl (80-100) MCH 27.0 pg (26-34) MCHC 32.5 g/dl (32-36) RDW 15.1 H % (11.5-14.5) Plt Count 143 L k/mm3 (150-375) MPV 9.7 fl (7.4-10.4) Immature Gran % (Auto) 1.3 H % (0-0.5) Neut % (Auto) 92.2 H % (45.5-73.1) Lymph % (Auto) 4.0 L % (18.3-44.2) [place] % (Auto) 0.3 L % (2.6-8.5) Eos % (Auto) 1.8 % (0-4.4) Baso % (Auto) 0.4 % (0.2-1.2) Lymph # (Auto) 0.44 L K/mm3 (0.9-3.2) [place] # (Auto) 0.0 L K/mm3 (0.1-0.6) Eos # (Auto) 0.2 K/mm3 (0-0.3) Baso # (Auto) 0.0 K/mm3 (0.0-0.1) Abs Immat Gran (auto) 0.14 H K/mm3 (0.00-0.031) Absolute Neuts (auto) 10.1 H K/mm3 (1.3-6.7) Absolute Nucleated RBC 0.0 K/mm3 (0.0-0.012) Nucleated RBC % 0.0 % (0.0-0.2) PT 19.8 H Seconds (11.1-14.7) INR 1.6 APTT 60.1 H SECONDS (22.3-36.8) Sodium 130 L mmol/L (137-145) Potassium 3.0 L mmol/L (3.4-5.0) Chloride 100 mmol/L (98-107) Carbon Dioxide 19 L mmol/L (22-30) Anion Gap 11 mmol/L (8-16) BUN 31 H mg/dL (7-17) Creatinine 1.70 H mg/dL (0.7-1.0) Estim Creat Clear Calc 35 ml/min Estimated GFR 30 L (59 - ) Glucose 103 mg/dL (65-110) Lactic Acid 4.9 H* mmol/L (0.7-2.0) Calcium 8.3 L mg/dL (8.4-10.2) Total Bilirubin 1.0 mg/dL (0.2-1.3) AST 37 H U/L (14-36) ALT 24 U/L (6-35) Alkaline Phosphatase 168 H U/L (38-126) Total Protein 6.0 L g/dL (6.3-8.2) Albumin 3.1 L g/dL (3.5-5.1) : gestational age HCG: positive Patient hx anesthesia problems: none Family hx anesthesia problems: none Results Review: All pre-operative results and documents have been reviewed as part of the pre-operative evaluation. [facility] Past Medical History Medical History Calculus of distal left ureter section wound complication Hypertension Kidney stone Sepsis Septic shock due to urinary tract infection Social History Social History Spiritual care concerns: No Anes - Eval Final PreProcedure Day of Procedure 02/16/23 03:16 Patient weight: obese Heart: regular rate and rhythm Lungs: clear to auscultation Airway: Mallampati scale class II Neurological: alert and oriented Last oral intake: >/= 8 hours ASA classification: III Emergent: yes Anesthetic plan: proceed Anesthesia type and monitoring: general LMA and standard monitoring Results Review
--- NOTE | 2023-02-16 03:41 | P.OP_ITS ---
Procedure Note - Detailed Date of Procedure 02/16/23 Pre-op Diagnosis left ureter stone and sepsis Post-op Diagnosis Same Procedure Performed cystoscopy with left retrograde pyelogram and left ureter stent placement Surgeon Rasheed Porras MD Anesthesia General Indications left ureter stone with hypotension and UTI Findings mild left hydronephrosis on retrograde pyelogram. Good placement of 4.8 swedish variable length stent Description of Procedure The patient was brought to the operating room in fair condition. She was placed under anesthesia. Antibiotics had been given in the emergency room. She was placed in lithotomy position and prepped and draped in sterile fashion. A 22 [place]ud[place] cystoscope was placed through the urethra in to the bladder. The bladder was inflamed consistent with a UTI. The left ureter orifice was visualized and a Sensor wire placed. The open ended catheter was placed over the wire. A retrograde pyelogram was performed. There was mild left hydronephrosis. The stone was not clearly visualized. Under direct vision and fluoroscopic guidance, a 4.8 swedish variable length stent was placed. A good curl was noted in the renal pelvis and in the bladder. Lidocaine jelly was placed followed by a Gasca catheter. The patient tolerated the procedure well. Implants 4.8 B[place] variable length stent Estimated Blood Loss 0 Urine Output 150 Complications No immediate complications Condition Stable Disposition PACU
[2023-02-16] MEDS: LACTATED RINGERS 1,000 ML 30 ML IV CONT (03:46)
[2023-02-16] MEDS: fentaNYL CITRATE INJ (*CRX) 100 MCG/2 ML VIAL 25 MCG IV PUSH ×2 (03:50→03:58)
[2023-02-16] MEDS: MORPHINE SULFATE (*CRX) 4 MG/ML INJ 5 MG IV PUSH (04:01)
[2023-02-16] MEDS: METOPROLOL TARTRATE INJ 5 MG/5 ML VIAL IV PUSH (04:02)
[2023-02-16] MEDS: ALBUTEROL SULFATE NEB 2.5 MG/3 ML INH INHALATION ×3 (04:12→20:11)
[2023-02-16 04:13] LABS: Reflex Lactic Acid Yes or No Add Lactic
[2023-02-16 04:46] LABS: Alveolar/Arterial O2 Gradient 413.7 mmHg; Base Excess ABG -9.5 mEq/l (+/-2.0); Fractional Inspired Oxygen 70 %; Oxygen Content ABG 15.7 %vol (16.0-22.0); Oxygen Saturation ABG 90.3 % (95.0-100.0); Oxyhemoglobin 89.5 % THb (90.0-100.0); PCO2 ABG 24.9 mmHg (35.0-45.0); PO2 ABG 58.6 mmHg (80.0-100.0); PO2 FiO2 Ratio Arterial Blood 0.84 %; Total Hemoglobin 12.5 g/dL (12.0-18.0); pH ABG 7.369 (7.350-7.450)
[2023-02-16 04:48] LABS: Device SIMPLE MASK; Site Drawn LEFT BRACHIAL
--- NOTE | 2023-02-16 05:28 | ADMGEN ---
This patient, Sara Gore, was admitted to Intensive Care Unit-8. Patient/family oriented to hospital policies and general routines including ID bracelet, bed and alarms, visiting hours, pain management, procedures, bathroom and other care routines, personal items, smoking policy, room service/diet, and visiting hours. Information on how to activate the Rapid Response Team has been discussed. Patient/Family are encouraged to report perceived risks to care and to ask questions if they do not understand what they are told or what they should do.
[2023-02-16] MEDS: VANCOMYCIN 1,250 MG/NS 250 ML 1,250 MG/250 ML BAG 166.67 MG IVPB ×2 (06:10→07:49)
[2023-02-16] MEDS: PIPERACILLIN/TAZ 2.25G/NS 50ML 2.25 GM/50 ML BAG IVPB (06:39)
[2023-02-16 06:41] LABS: Hemoglobin 11.6 g/dL (12.0-15.0); Mean Corpuscular HGB Conc 32.2 g/dl (32-36); Mean Corpuscular Hemoglobin 27.4 pg (26-34); Mean Corpuscular Volume 84.9 fl (80-100); Mean Platelet Volume 9.7 fl (7.4-10.4); Platelet Count Result 141 k/mm3 (150-375); Red Blood Count 4.24 M/mm3 (4.2-5.4); Red Cell Distribution Width 15.7 % (11.5-14.5)
[2023-02-16] MEDS: ONDANSETRON INJ 4 MG/2 ML VIAL IV PUSH ×2 (06:52→14:19)
[2023-02-16] MEDS: ACETAMINOPHEN 325 MG TABLET 650 MG PO (06:52)
--- NOTE | 2023-02-16 06:52 | WPDUROPN2 ---
Progress Note: A&P Assessment and Plan (1) Calculus of distal left ureter: Code(s): N20.1 - Calculus of ureter Status: Acute (2) Septic shock due to urinary tract infection: Code(s): A41.9 - Sepsis, unspecified organism; R65.21 - Severe sepsis with septic shock; N39.0 - Urinary tract infection, site not specified Status: Acute Assessment and Plan: Levophed @ 20mcg to maintain SBP 90's. Oxygenating well at this point. Tolerating stent and Gasca Subjective Subjective Date/Time Seen: 02/16/23 06:52 Interval history: Awake,alert and comfortable (tolerating stent). Review of Systems Review of Systems: ROS unobtainable: Yes unobtainable due to medical condition Exam Const: General: no acute distress Resp: Effort & Inspection: normal respiratory effort GI: Inspection: non-distended GI Palp: No abdominal tenderness and No Guarding due to palpation present (GI) Auscultation: normal bowel sounds Objective Data Vital Signs Vital Signs: Vital Signs - 24 hr 02/15/23 23:18 02/16/23 00:50 02/15/23 23:51 Temperature 98.9 F Pulse Rate 101 H 88 97 Respiratory Rate 20 15 27 H Blood Pressure 106/65 93/62 L 87/60 L Pulse Oximetry 94 97 91 Oxygen Delivery Room Air Oxygen Flow Rate 02/15/23 23:56 02/16/23 01:41 02/16/23 02:20 Temperature Pulse Rate 96 88 87 Respiratory Rate 27 H Blood Pressure 87/63 L 79/56 L 62/42 L Pulse Oximetry 93 Oxygen Delivery Oxygen Flow Rate 02/16/23 01:01 02/16/23 01:05 02/16/23 01:07 Temperature Pulse Rate 84 83 83 Respiratory Rate 26 H 19 22 H Blood Pressure 69/54 L 64/48 L 70/49 L Pulse Oximetry 96 94 95 Oxygen Delivery Oxygen Flow Rate 02/16/23 01:22 02/16/23 01:37 02/16/23 02:16 Temperature Pulse Rate 90 87 82 Respiratory Rate 16 17 24 H Blood Pressure 77/46 L 86/67 L 75/41 L Pulse Oximetry 95 96 34 L Oxygen Delivery Oxygen Flow Rate 02/16/23 02:27 02/16/23 02:34 02/16/23 02:37 Temperature Pulse Rate 86 85 Respiratory Rate 26 H Blood Pressure 83/48 L 74/41 L Pulse Oximetry 98 98 Oxygen Delivery Nasal Cannula Oxygen Flow Rate 2 02/16/23 02:35 02/16/23 02:57 02/16/23 03:46 Temperature 97.3 F L Pulse Rate 84 90 110 H Respiratory Rate 25 H 15 40 H Blood Pressure 97/59 L 96/58 L 159/83 H Pulse Oximetry 97 Oxygen Delivery Simple Face Mask Oxygen Flow Rate 10 02/16/23 04:10 02/16/23 04:26 02/16/23 04:00 Temperature Pulse Rate 95 89 96 Respiratory Rate 40 H Blood Pressure 134/109 H 76/47 L Pulse Oximetry 74 L Oxygen Delivery Simple Face Mask Oxygen Flow Rate 10 02/16/23 04:14 02/16/23 04:11 02/16/23 04:18 Temperature Pulse Rate 98 99 95 Respiratory Rate 30 H 36 H 27 H Blood Pressure 134/109 H Pulse Oximetry 90 Oxygen Delivery Simple Face Mask Oxygen Flow Rate 10 02/16/23 04:25 02/16/23 04:50 02/16/23 04:35 Temperature 97.3 F L Pulse Rate 90 88 88 Respiratory Rate 32 H 28 H 28 H Blood Pressure 72/56 L 100/57 L 91/54 L Pulse Oximetry 90 93 91 Oxygen Delivery Simple Face Mask Simple Face Mask Simple Face Mask Oxygen Flow Rate 10 10 10 02/16/23 05:15 02/16/23 05:47 02/16/23 06:00 Temperature 99.6 F Pulse Rate 85 84 Respiratory Rate 25 H Blood Pressure 80/62 L 75/57 L 73/53 L Pulse Oximetry 88 L Oxygen Delivery Oxygen Flow Rate 02/16/23 06:35 02/16/23 06:48 02/16/23 06:00 Temperature Pulse Rate 84 Respiratory Rate Blood Pressure 92/60 L 99/54 L Pulse Oximetry Oxygen Delivery Oxygen Flow Rate Intake/Output Intake/Output: Intake & Output 02/13/23 02/14/23 02/15/23 02/16/23 23:59 23:59 23:59 23:59 Intake Total 5 Output Total 150 195 Balance -150 1860 Meds/Results Medications: Active Medications Generic Name Dose Route Start Last Admin Trade Name Freq PRN Reason Stop Dose Admin Acetaminophen 650 mg 02/16/23 05:27 Acetaminophe
[2023-02-16 06:53] LABS: Anion Gap 7 mmol/L (8-16); Blood Urea Nitrogen 29 mg/dL (7-17); Calcium 6.8 mg/dL (8.4-10.2); Carbon Dioxide 19 mmol/L (22-30); Chloride 105 mmol/L (98-107); Estimated CRCL calculation 35 ml/min; Estimated Glomerular Filt Rate 29; Glucose 111 mg/dL (65-110); Potassium 3.1 mmol/L (3.4-5.0); Sodium 131 mmol/L (137-145)
[2023-02-16 06:56] LABS: Lactic Acid Reflex 4.3 mmol/L (0.7-2.0)
[2023-02-16 07:03] LABS: Glucose Point of Care 97 mg/dl (65-105)
[2023-02-16 07:05] LABS: Band Neutrophils Percent 30 % (0-6); Lymphocytes Absolute Manual 1.04 K/mm3 (1.1-4.5); Metamyelocytes Percent 6 %; Myelocytes Percent 5 %; Neutrophils Percent Manual 55 % (46-73); Schistocytes None Seen (NORMAL); Total Cells Counted 100
[2023-02-16 07:06] LABS: Burr Cells 1+ (NORMAL)
[2023-02-16 07:10] LABS: INR 1.6; Prothrombin Time 20.4 Seconds (11.1-14.7)
[2023-02-16] MEDS: NOREPINEPHRINE 8 MG/D5W 250 ML 8 MG/250 ML BAG 45 MG IV CONT (08:28)
[2023-02-16] MEDS: DOCUSATE SODIUM 100 MG CAPSULE PO ×2 (08:31→17:33)
[2023-02-16] MEDS: ENOXAPARIN 40 MG/0.4 ML SYRINGE SUB-Q (08:31)
--- NOTE | 2023-02-16 08:53 | PM.IMHP ---
H&P: HPI History of Present Illness Date/Time: 02/16/23 08:53 Chief Complaint: Altered mental status Narrative: 62-year-old female presents to the ED for altered mental status. She was seen at [facility] earlier today was diagnosed with kidney stone and potential UTI patient was discharged however family started to 6 noticed she was a bit altered however was also taking her pain medication. She remained confused diaphoretic and had slight slurred speech and hence brought back to the ED for evaluation. She reported right lower back pain no fever chills. She has a history of hypertension and takes amlodipine and losartan. Diagnosed with urosepsis. Initial blood pressure was 90s over 60s with slight tachycardia WBC count to 10.9. CMP with hyponatremia and hypokalemia. BUN 31 creatinine is 1.7 suggesting acute kidney injury. Lactic acid elevated at 4.9. CT scan earlier today was 3-4 mm stone at the left ureteral pelvic junction. Shortly after arrival to the ED she became more hypotensive in 60s over 40s. Levophed was started. Central line was placed and patient was then transferred to ICU for further treatment. Urology was consulted since admission and underwent cystoscopy with left retrograde pyelogram and left ureter stent placement earlier today. She has been admitted to the ICU remains on Levophed. Review of Systems Review of Systems: - CONSTITUTIONAL: Denies weight loss, fever and chills. - HEENT: Denies changes in vision and hearing - RESPIRATORY: Denies SOB and cough. - CV: Denies palpitations and CP. - GI: Denies abdominal pain, nausea, vomiting and diarrhea. - : Denies dysuria and urinary frequency. - MSK: Denies myalgia and joint pain. Reports back pain - SKIN: Denies rash and pruritus. - NEUROLOGICAL: Denies headache and syncope. - PSYCHIATRIC: Denies recent changes in mood. Denies anxiety and depression. [facility] Past Medical History Medical History (Updated 02/16/23 @ 13:11 by Renee Wong MD) Calculus of distal left ureter section wound complication Hypertension Kidney stone Sepsis Septic shock due to urinary tract infection Family History Family History (Updated 02/16/23 @ 05:19 by Santos Chaidez RN) Mother Hypertension COPD (chronic obstructive pulmonary disease) Father Hypertension Heart attack Sibling Hypertension Social History Social History Smoking packs per day: 0.25 Smoking cigarettes per day: 5.0 Years smoked: 8 Smoking pack-years: 2.00 Smoking status: Former smoker Alcohol intake: current Drinks per week: 1 Substance use: never Lack of Transportation: No Lack of Food: Never True Current Housing: I Have Housing Concerned About Future Housing: No Difficulty Paying Gas/Electric Bills: No Difficulty Paying for Meds: No Currently Unemployed: No Education: Associate Degree Difficulty w/ Childcare or Family Care: No Spiritual care concerns: No Meds Home Medications and Allergies Home Medications Medication Instructions Recorded Confirmed Type Daily Vitamin C Pack 1 tablet PO DAILY 02/16/23 02/16/23 History Vitamin D3 1 tablet PO DAILY 02/16/23 02/16/23 History amlodipine 5 mg tablet 5 mg PO DAILY 02/16/23 02/16/23 History [id number] 1 tablet PO DAILY 02/16/23 02/16/23 History losartan 100 1 tablet PO DAILY 02/16/23 02/16/23 History mg-hydrochlorothiazide 25 mg tablet progesterone micronized 100 mg 100 mg PO DAILY 02/16/23 02/16/23 History capsule solifenacin 5 mg tablet 5 mg PO DAILY 02/16/23 02/16/23 History Allergies Allergy/AdvReac Type Severity Reaction Status Date / Time No Known Allergies Allergy Verified 02/15/23 09:27 Vital Signs Vital Signs - 24 hr 02/15/23 23:18 02/16/23 00:50 02/15/23 23:51 Temperature 98.9 F Pulse Rate 101 H 88 97 Respiratory Rate 20 15 27 H Blood Pressure 106/65
[2023-02-16] MEDS: CALCIUM GLUC 2,000 MG/NS 100ML 2,000 MG/100 ML BAG 100 MG IVPB (09:22)
[2023-02-16] MEDS: ALBUMIN HUMAN 25% 25 GM/100 ML 100 ML IVPB ×3 (09:22→17:33)
[2023-02-16] MEDS: KCL 40 MEQ/WATER 100 ML 100 ML 25 ML IVPB (09:22)
[2023-02-16] MEDS: LACTATED RINGERS 1,000 ML 100 ML IV CONT (09:22)
[2023-02-16] MEDS: cefTRIAXone 2 GM/NS 100 ML 2 GM/100 ML BAG IVPB (09:23)
[2023-02-16] MEDS: PROCHLORPERAZINE EDISYLATE 10 MG/2 ML VIAL IV PUSH (09:36)
[2023-02-16] MEDS: CENTRAL LINE FLUSH 10 ML IV PUSH ×3 (11:08→19:43)
[2023-02-16 11:09] LABS: Lactic Acid Reflex 3.5 mmol/L (0.7-2.0)
--- NOTE | 2023-02-16 12:55 | WPDCNINT ---
Assessment and Plan Assessment and plan (1) Septic shock due to urinary tract infection: Code(s): A41.9 - Sepsis, unspecified organism; R65.21 - Severe sepsis with septic shock; N39.0 - Urinary tract infection, site not specified Status: Acute Assessment and Plan: Patient presented with abdominal pain, CT scan of the abdomen pelvis showed 3-4 mm left ureteral stone mild hydronephrosis, status post cystoscopy with left retrograde pyelogram and left ureteral stent placement -patient received a total of 5 L of IV fluids in the ER and OR -remains on Levophed, will maintain MAP > 65 mmHg -elevated lactic acid, trending down, will continue to monitor -02/15 blood cultures: Growing Gram-negative bacilli 06/02 bottles -02/15 urine cultures pending -increase ceftriaxone 2 g Q 24 hours (02/16). Continue vancomycin (02/16) -continue maintenance IV fluids and albumin for volume expansion (2) UTI (urinary tract infection): Code(s): N39.0 - Urinary tract infection, site not specified Status: Acute Assessment and Plan: Urinary tract infection/pyelonephritis. Urine cultures have been obtained, continue antibiotics as above (3) Calculus of distal left ureter: Code(s): N20.1 - Calculus of ureter Status: Acute Assessment and Plan: CT scan of the abdomen pelvis showed 3-4 mm left ureteral stone mild hydronephrosis, status post cystoscopy with left retrograde pyelogram and left ureteral stent placement -urology following the patient (4) Acute kidney injury: Code(s): N17.9 - Acute kidney failure, unspecified Status: Acute Assessment and Plan: Acute kidney injury likely related to UTI/pyelonephritis, patient on losartan/hydrochlorothiazide at home, septic shock ATN, hypovolemia -patient has been adequately fluid-resuscitated, received a total of 5 L IV fluids in the ER and OR -continue low-dose maintenance IV fluids and albumin for volume expansion -will continue to monitor urine output, electrolytes and renal function (5) Electrolyte imbalance: Code(s): E87.8 - Other disorders of electrolyte and fluid balance, not elsewhere classified Status: Acute Assessment and Plan: Hypokalemia, will replace potassium -continue to monitor Plan DVT prophylaxis: Enoxaparin Stress ulcer prophylaxis: Not indicated Nutrition: Low-sodium diet Code Status: Full code Critical Care Time Spent: 48 minutes Due to a high probability of clinically significant, life threatening deterioration, the patient required my highest level of preparedness to intervene emergently and I personally spent this critical care time directly and personally managing the patient. This critical care time included obtaining a history; examining the patient; pulse oximetry; ordering and review of studies; arranging urgent treatment with development of a management plan; evaluation of patient's response to treatment; frequent reassessment; and discussions with other providers. It was exclusive of separately billable procedures and treating other patients and teaching time. Please see Assessment and Plan section and the rest of the note for further information on patient assessment and treatment This dictation may have been done utilizing a voice recognition system. Attempts have been made to correct errors. However, there may be uncorrected grammatical, spelling, and recognitions errors present. Tuberculosis Specialist Consult Note Consult date: 02/16/23 Reason for consult: Septic shock, per UTI/pyelonephritis. Left ureteral stone with hydronephrosis status post cystoscopy with left retrograde pyelogram and left ureteral stent placement HPI: Sara Gore is a 62 year old female with past medical history of essential hypertension, kidney stones, presented the ED on 02/15/2023 morning at [facility] in [facility] with abdominal pain/calf flank and, UA large amount of hematuria, CT CT abdomen and pelvis reveal
[2023-02-16] MEDS: IPRATROPIUM BR 0.02% INH SOLN 0.5 MG/2.5 ML VIAL INHALATION ×2 (13:53→20:11)
[2023-02-16] MEDS: MORPHINE SULFATE (*CRX) 2 MG/ML INJ IV PUSH (14:18)
[2023-02-17] VITALS (22 sets, daily range): BP systolic 114–158; BP diastolic 76–88; PULSE 79–102; RESP 17–26; TEMP 36.4–36.9; O2SAT 91–98
[2023-02-17] MEDS: ALBUMIN HUMAN 25% 25 GM/100 ML 100 ML IVPB ×4 (00:08→17:03)
[2023-02-17] MEDS: ACETAMINOPHEN 325 MG TABLET 650 MG PO ×2 (00:20→09:06)
[2023-02-17] MEDS: IPRATROPIUM BR 0.02% INH SOLN 0.5 MG/2.5 ML VIAL INHALATION ×4 (01:40→20:35)
[2023-02-17] MEDS: ALBUTEROL SULFATE NEB 2.5 MG/3 ML INH INHALATION ×4 (01:40→20:35)
[2023-02-17 03:32] LABS: Base Excess ABG -7.4 mEq/l (+/-2.0); HCO3 ABG 15.7 mEq/l (22.0-26.0); Oxygen Content ABG 15.5 %vol (16.0-22.0); Oxygen Saturation ABG 94.5 % (95.0-100.0); Oxyhemoglobin 92.2 % THb (90.0-100.0); PCO2 ABG 25.4 mmHg (35.0-45.0); PO2 ABG 69.8 mmHg (80.0-100.0); Total Hemoglobin 11.9 g/dL (12.0-18.0); pH ABG 7.408 (7.350-7.450)
[2023-02-17 03:33] LABS: Device SIMPLE MASK; Fractional Inspired Oxygen 44 %; Modified Allen's Test Pass; PO2 FiO2 Ratio Arterial Blood 1.59 %; Site Drawn LEFT RADIAL
[2023-02-17 03:47] LABS: Albumin Level 3.9 g/dL (3.5-5.1); Alkaline Phosphatase 64 U/L (38-126); Anion Gap 14 mmol/L (8-16); Bilirubin,Total 1.3 mg/dL (0.2-1.3); Blood Urea Nitrogen 35 mg/dL (7-17); CRP 22.8 mg/dL (<1.0); Calcium 7.9 mg/dL (8.4-10.2); Carbon Dioxide 18 mmol/L (22-30); Chloride 106 mmol/L (98-107); Estimated CRCL calculation 29 ml/min; Estimated Glomerular Filt Rate 23; Glucose 85 mg/dL (65-110); Magnesium 1.6 mg/dL (1.6-2.3); Phosphorus 4.1 mg/dL (2.5-4.5); Potassium 3.7 mmol/L (3.4-5.0); Sodium 138 mmol/L (137-145)
[2023-02-17 03:49] LABS: Hematocrit 33.3 % (37.0-47.0); Hemoglobin 10.7 g/dL (12.0-15.0); Immature Platelet Fraction Pct 7.7 % (0.9-11.2); Mean Corpuscular HGB Conc 32.1 g/dl (32-36); Mean Corpuscular Hemoglobin 27.4 pg (26-34); Mean Corpuscular Volume 85.4 fl (80-100); Mean Platelet Volume 10.8 fl (7.4-10.4); Platelet Count Result 71 k/mm3 (150-375); Red Cell Distribution Width 16.2 % (11.5-14.5); White Blood Count 35.2 K/mm3 (4.5-10.0)
[2023-02-17 03:58] LABS: Band Neutrophils Percent 25 % (0-6); Lymphocytes Absolute Manual 1.76 K/mm3 (1.1-4.5); Lymphocytes Percent Manual 5 % (18-44); Monocytes Percent Manual 2 % (3-9); Myelocytes Percent 4 %; Neutrophils Absolute Manual 31.32 K/mm3 (1.7-7.2); Neutrophils Percent Manual 64 % (46-73); Nucleated Red Blood Cells 1 %; Total Cells Counted 100
[2023-02-17 03:59] LABS: Anisocytosis 1+ (NORMAL); Platelet Estimate Decreased (Adequate); Schistocytes None Seen (NORMAL)
[2023-02-17 04:02] LABS: Alanine Aminotransferase 1111 U/L (6-35); Aspartate Amino Transferase 1071 U/L (14-36)
[2023-02-17 04:04] LABS: Lactic Acid Reflex 3.9 mmol/L (0.7-2.0)
[2023-02-17 05:00] LABS: Reflex Lactic Acid Yes or No Add Lactic
[2023-02-17] MEDS: CENTRAL LINE FLUSH 10 ML IV PUSH ×4 (05:45→20:36)
[2023-02-17] MEDS: cefTRIAXone 2 GM/NS 100 ML 2 GM/100 ML BAG IVPB (08:40)
[2023-02-17] MEDS: DOCUSATE SODIUM 100 MG CAPSULE PO ×2 (08:41→16:55)
[2023-02-17] MEDS: SODIUM CHLORIDE 0.9% IV 1,000 ML 75 ML IV CONT (08:49)
[2023-02-17 09:10] LABS: Lactic Acid 3.2 mmol/L (0.7-2.0)
--- NOTE | 2023-02-17 10:42 | WPDUROPN2 ---
Progress Note: A&P Assessment and Plan (1) UTI (urinary tract infection): Code(s): N39.0 - Urinary tract infection, site not specified Status: Acute (2) Acute kidney injury: Code(s): N17.9 - Acute kidney failure, unspecified Status: Acute (3) Calculus of distal left ureter: Code(s): N20.1 - Calculus of ureter Status: Acute Assessment and Plan: Progress noted -> off pressor support still requiring oxygen by face mask Blood and urine cultures both growing E coli; sensitivities pending OK to remove Gasca catheter when she is more ambulatory Definitive left ureteral stone intervention 2-3 weeks [id number] Subjective Subjective Date/Time Seen: 02/17/23 10:42 Interval history: Comfortable, continues to tolerate stent well Review of Systems Cardiovascular: Cardiovascular: Denies chest pain, Denies lightheadedness, Denies palpitations and Denies dyspnea Respiratory: Respiratory: Denies dyspnea Gastrointestinal: Gastrointestinal: Denies diarrhea, Denies nausea and Denies vomiting Genitourinary: Genitourinary: Denies hematuria and Denies dysuria Endocrine: Endocrine: Denies palpitations Exam Const: General: no acute distress Resp: Effort & Inspection: normal respiratory effort GI: Inspection: non-distended GI Palp: No abdominal tenderness and No Guarding due to palpation present (GI) Auscultation: normal bowel sounds Objective Data Vital Signs Vital Signs: Vital Signs - 24 hr 02/16/23 10:45 02/16/23 11:00 02/16/23 11:15 Temperature Pulse Rate 76 75 77 Respiratory Rate Blood Pressure 110/56 L 123/77 112/76 Pulse Oximetry Oxygen Delivery Oxygen Flow Rate 02/16/23 11:30 02/16/23 11:45 02/16/23 12:00 Temperature Pulse Rate 82 79 82 Respiratory Rate Blood Pressure 106/71 123/83 121/76 Pulse Oximetry Oxygen Delivery Oxygen Flow Rate 02/16/23 12:00 02/16/23 12:00 02/16/23 12:00 Temperature 98.4 F Pulse Rate 82 82 82 Respiratory Rate 19 19 Blood Pressure 121/76 Pulse Oximetry 96 96 Oxygen Delivery Simple Face Mask Oxygen Flow Rate 8 02/16/23 12:15 02/16/23 13:00 02/16/23 12:30 Temperature Pulse Rate 80 85 80 Respiratory Rate Blood Pressure 113/73 131/83 118/70 Pulse Oximetry Oxygen Delivery Oxygen Flow Rate 02/16/23 12:45 02/16/23 13:15 02/16/23 13:22 Temperature Pulse Rate 79 82 82 Respiratory Rate Blood Pressure 113/75 155/75 H 116/96 H Pulse Oximetry Oxygen Delivery Oxygen Flow Rate 02/16/23 13:30 02/16/23 13:37 02/16/23 13:46 Temperature Pulse Rate 85 80 80 Respiratory Rate Blood Pressure 128/81 120/75 129/73 Pulse Oximetry Oxygen Delivery Oxygen Flow Rate 02/16/23 13:58 02/16/23 13:54 02/16/23 14:03 Temperature Pulse Rate 81 80 82 Respiratory Rate 24 H Blood Pressure 116/72 127/74 Pulse Oximetry Oxygen Delivery Oxygen Flow Rate 02/16/23 14:00 02/16/23 14:00 02/16/23 14:10 Temperature Pulse Rate 81 81 84 Respiratory Rate 24 H 24 H Blood Pressure 122/74 Pulse Oximetry 97 Oxygen Delivery Oxygen Flow Rate 02/16/23 14:16 02/16/23 14:32 02/16/23 14:45 Temperature Pulse Rate 84 77 77 Respiratory Rate Blood Pressure 113/78 113/80 107/75 Pulse Oximetry Oxygen Delivery Oxygen Flow Rate 02/16/23 15:00 02/16/23 15:15 02/16/23 15:30 Temperature Pulse Rate 75 75 75 Respiratory Rate Blood Pressure 118/73 106/65 109/68 Pulse Oximetry Oxygen Delivery Oxygen Flow Rate 02/16/23 16:00 02/16/23 16:00 02/16/23 16:00 Temperature 99 F Pulse Rate 78 78 78 Respiratory Rate 20 20 Blood Pressure 108/73 Pulse Oximetry 92 92 Oxygen Delivery Simple Face Mask Oxygen Flow Rate 8 02/16/23 18:00 02/16/23 18:00 02/16/23 14:10 Temperature Pulse Rate 80 80 Respiratory Rate 19 Blood Pressure 101/70 Pulse Oximetry 93 96 Oxygen Deli
--- NOTE | 2023-02-17 11:08 | WPDINTPN ---
Progress Note: A&P Assessment and Plan (1) Septic shock due to urinary tract infection: Code(s): A41.9 - Sepsis, unspecified organism; R65.21 - Severe sepsis with septic shock; N39.0 - Urinary tract infection, site not specified Status: Acute Assessment and Plan: Patient presented with abdominal pain, CT scan of the abdomen pelvis showed 3-4 mm left ureteral stone mild hydronephrosis, status post cystoscopy with left retrograde pyelogram and left ureteral stent placement -patient received a total of 5 L of IV fluids in the ER and OR -OFF Levophed, blood pressures have been stable -elevated lactic acid, trending down, will continue to monitor -02/15 blood cultures: E coli to a 2 bottles -02/15 urine cultures coli -continue ceftriaxone (02/16). Continue vancomycin (02/16) -continue maintenance IV fluids and albumin for volume expansion (2) UTI (urinary tract infection): Code(s): N39.0 - Urinary tract infection, site not specified Status: Acute Assessment and Plan: Urinary tract infection/pyelonephritis. Urine cultures growing E coli, antibiotics as above (3) Calculus of distal left ureter: Code(s): N20.1 - Calculus of ureter Status: Acute Assessment and Plan: CT scan of the abdomen pelvis showed 3-4 mm left ureteral stone mild hydronephrosis, status post cystoscopy with left retrograde pyelogram and left ureteral stent placement -urology following the patient (4) Acute kidney injury: Code(s): N17.9 - Acute kidney failure, unspecified Status: Acute Assessment and Plan: Acute kidney injury likely related to UTI/pyelonephritis, patient on losartan/hydrochlorothiazide at home, septic shock ATN, hypovolemia -patient has been adequately fluid-resuscitated, received a total of 5 L IV fluids in the ER and OR -continue low-dose maintenance IV fluids and albumin for volume expansion -will continue to monitor urine output, electrolytes and renal function (5) Electrolyte imbalance: Code(s): E87.8 - Other disorders of electrolyte and fluid balance, not elsewhere classified Status: Acute Assessment and Plan: Potassium improved to place (6) Elevated LFTs: Code(s): R79.89 - Other specified abnormal findings of blood chemistry Status: Acute Assessment and Plan: Likely to shock liver secondary to hypotension septic shock -blood pressure is more stable, will continue to monitor liver enzymes. Plan DVT prophylaxis: Hold enoxaparin due to thrombocytopenia Stress ulcer prophylaxis: Not indicated Nutrition: Low-sodium diet Code Status: Full code Critical Care Time Spent: 32 minutes Patient can move out of the ICU if okay with hospitalist Due to a high probability of clinically significant, life threatening deterioration, the patient required my highest level of preparedness to intervene emergently and I personally spent this critical care time directly and personally managing the patient. This critical care time included obtaining a history; examining the patient; pulse oximetry; ordering and review of studies; arranging urgent treatment with development of a management plan; evaluation of patient's response to treatment; frequent reassessment; and discussions with other providers. It was exclusive of separately billable procedures and treating other patients and teaching time. Please see Assessment and Plan section and the rest of the note for further information on patient assessment and treatment This dictation may have been done utilizing a voice recognition system. Attempts have been made to correct errors. However, there may be uncorrected grammatical, spelling, and recognitions errors present. Subjective Date/time seen: 02/17/23 11:08 Interval history: Reason for consult: Septic shock, per UTI/pyelonephritis.? Left ureteral stone with hydronephrosis status post cystoscopy with left retrograde pyelogram and left ureteral stent plac
[2023-02-17] MEDS: ONDANSETRON INJ 4 MG/2 ML VIAL IV PUSH (11:53)
--- NOTE | 2023-02-17 14:54 | PM.IMPN ---
Progress Note: A&P Assessment and Plan (1) Kidney stone: Code(s): N20.0 - Calculus of kidney Status: Acute (2) Calculus of distal left ureter: Code(s): N20.1 - Calculus of ureter Status: Acute (3) Septic shock due to urinary tract infection: Code(s): A41.9 - Sepsis, unspecified organism; R65.21 - Severe sepsis with septic shock; N39.0 - Urinary tract infection, site not specified Status: Acute (4) Hypertension: Code(s): I10 - Essential (primary) hypertension Status: Acute Plan Septic shock needing IV vasopressor likely source UTI and obstructive uropathy. UTI positive. Chest x-ray with possible minimal central haziness correlate for minimal central pulmonary edema. CT abdomen pelvis 02/15/2023 with 3-4 mm stone at left ureteral pelvic junction with mild left hydronephrosis. Off Levophed since 02/16/2023. Lactic acidosis still present but improving. Remains on IV fluid. Bacteremia with E coli x2 WBC count worsened to 35 K. urine culture with E coli pansensitive. Thrombocytopenia [id number] creatinine bumped up to 2.2, AST ALT in 1000 likely suggestive of shock liver. Chest x-ray with minimal haziness left lung base. Lovenox held due to thrombocytopenia which has been worsening likely related to sepsis as well UTI with obstructive uropathy status post cystoscopy and left ureter stent placement On Zosyn and vancomycin Zosyn switched to ceftriaxone follow urine culture. Urine culture growing pansensitive E coli. Continue ceftriaxone 2 g IV daily. DVT prophylaxis Lovenox REZA creatinine 1.7 on admission. Earlier on 02/15 creatinine was 1.09. Creatinine continues to worsen 2.2 today. Urine output adequate continue to monitor Mild thrombocytopenia continue to monitor Mild hyponatremia Hypokalemia replace and monitor Lactic acidosis Code status full code Subjective Date/time seen: 02/17/23 14:54 Interval history: Off Levophed since yesterday. Lactic acidosis still present but improving. Remains on IV fluid. Bacteremia with E coli x2 WBC count worsened to 35 K. urine culture with E coli pansensitive. Thrombocytopenia [phone] creatinine bumped up to 2.2, AST ALT in 1000. Chest x-ray with minimal haziness left lung base. Lovenox held Review of Systems Review of Systems: All systems reviewed & are unremarkable except as noted in HPI and below Exam Narrative: GENERAL: Alert and oriented x3 not in acute distress HEAD: Normocephalic, atraumatic. EYES: PERRLA and EOMI. ENT: Nares clear, no rhinorrhea or epistaxis.? Mucous membranes moist.? O NECK: Supple.? No adenopathy or masses.? CHEST: No respiratory distress. Clear to auscultation. No wheezes rales or rhonchi HEART: Regular rate and rhythm.? No murmur heard.? Normal peripheral pulses. ABDOMEN: Soft nontender, nondistended, normal active bowel sounds. MSK: Normal range of motion.? No edema. SKIN: Warm, dry, no rash. NEURO: Alert and oriented x4.? Awake PSYCH: Normal mood and affect. Objective Data Vital Signs Vital Signs: Vital Signs - 24 hr 02/16/23 15:00 02/16/23 15:15 02/16/23 15:30 Temperature Pulse Rate 75 75 75 Respiratory Rate Blood Pressure 118/73 106/65 109/68 Pulse Oximetry Oxygen Delivery Oxygen Flow Rate 02/16/23 16:00 02/16/23 16:00 02/16/23 16:00 Temperature 99 F Pulse Rate 78 78 78 Respiratory Rate 20 20 Blood Pressure 108/73 Pulse Oximetry 92 92 Oxygen Delivery Simple Face Mask Oxygen Flow Rate 8 02/16/23 18:00 02/16/23 18:00 02/16/23 20:15 Temperature Pulse Rate 80 80 Respiratory Rate 19 Blood Pressure 101/70 Pulse Oximetry 93 94 Oxygen Delivery Simple Face Mask Oxygen Flow Rate 6 02/16/23 20:15 02/16/23 20:00 02/16/23 20:00 Temperature Pulse Rate 84 80 Respiratory Rate 18 Blood Pressure Pulse Oximetry 95 Oxygen Delivery Simple Face Mask Oxygen Flow Rate 6 02/16/23 20:00 02/16/23 22:00 02/16/23 22:00
--- NOTE | 2023-02-17 17:41 | PC.NURSE ---
This patient, Sara Gore, was transferred to [facility] [place] on 02/17/23 at 1700. Personal belongings sent with patient. Report given to Tamie. Appropriate documentation sent with patient.
[2023-02-18] VITALS (28 sets, daily range): BP systolic 140–164; BP diastolic 79–97; PULSE 70–90; RESP 18–22; TEMP 35.6–36.6; O2SAT 91–100
[2023-02-18] MEDS: ALBUMIN HUMAN 25% 25 GM/100 ML 100 ML IVPB (00:19)
[2023-02-18] MEDS: IPRATROPIUM BR 0.02% INH SOLN 0.5 MG/2.5 ML VIAL INHALATION ×4 (02:42→20:19)
[2023-02-18] MEDS: ALBUTEROL SULFATE NEB 2.5 MG/3 ML INH INHALATION ×4 (02:42→20:19)
[2023-02-18] MEDS: SODIUM CHLORIDE 0.9% IV 1,000 ML 75 ML IV CONT (03:47)
[2023-02-18] MEDS: CENTRAL LINE FLUSH 10 ML IV PUSH ×4 (05:14→20:21)
[2023-02-18 05:28] LABS: Hematocrit 31.5 % (37.0-47.0); Hemoglobin 10.3 g/dL (12.0-15.0); Immature Platelet Fraction Pct 10.7 % (0.9-11.2); Mean Corpuscular HGB Conc 32.7 g/dl (32-36); Mean Corpuscular Hemoglobin 27.5 pg (26-34); Mean Corpuscular Volume 84.2 fl (80-100); Mean Platelet Volume 11.6 fl (7.4-10.4); Platelet Count Result 64 k/mm3 (150-375); Red Blood Count 3.74 M/mm3 (4.2-5.4); Red Cell Distribution Width 15.9 % (11.5-14.5); White Blood Count 36.1 K/mm3 (4.5-10.0)
[2023-02-18 05:35] LABS: Lactic Acid Reflex 1.6 mmol/L (0.7-2.0)
[2023-02-18 05:41] LABS: Albumin Level 4.2 g/dL (3.5-5.1); Alkaline Phosphatase 108 U/L (38-126); Anion Gap 10 mmol/L (8-16); Aspartate Amino Transferase 366 U/L (14-36); Bilirubin,Total 1.4 mg/dL (0.2-1.3); Blood Urea Nitrogen 25 mg/dL (7-17); Calcium 8.4 mg/dL (8.4-10.2); Carbon Dioxide 22 mmol/L (22-30); Chloride 112 mmol/L (98-107); Estimated CRCL calculation 55 ml/min; Estimated Glomerular Filt Rate 50; Glucose 97 mg/dL (65-110); Magnesium 2.3 mg/dL (1.6-2.3); Phosphorus 1.4 mg/dL (2.5-4.5); Sodium 144 mmol/L (137-145)
[2023-02-18 05:47] LABS: Alanine Aminotransferase 849 U/L (6-35)
[2023-02-18 05:51] LABS: CRP 17.4 mg/dL (<1.0)
[2023-02-18 06:07] LABS: Band Neutrophils Percent 13 % (0-6); Basophils Absolute Manual 0.72 K/mm3 (0.0-0.1); Basophils Percent Manual 2 % (0-1); Lymphocytes Absolute Manual 1.08 K/mm3 (1.1-4.5); Monocytes Absolute Manual 0.36 K/mm3 (0.1-0.90); Monocytes Percent Manual 1 % (3-9); Neutrophils Absolute Manual 33.93 K/mm3 (1.7-7.2); Neutrophils Percent Manual 81 % (46-73); Total Cells Counted 100
[2023-02-18 06:08] LABS: Platelet Estimate Decreased (Adequate)
[2023-02-18 06:09] LABS: Hypochromasia 2+ (NORMAL)
[2023-02-18 06:10] LABS: Anisocytosis 2+ (NORMAL); Poikilocytosis 1+ (NORMAL); Schistocytes None Seen (NORMAL)
[2023-02-18] MEDS: cefTRIAXone 2 GM/NS 100 ML 2 GM/100 ML BAG IVPB (08:54)
[2023-02-18] MEDS: DOCUSATE SODIUM 100 MG CAPSULE PO ×2 (08:54→18:06)
[2023-02-18] MEDS: POTASSIUM PHOS/SODIUM PHOS 250 MG TABLET PO (13:28)
--- NOTE | 2023-02-18 14:11 | PM.IMPN ---
Progress Note: A&P Assessment and Plan (1) Kidney stone: Code(s): N20.0 - Calculus of kidney Status: Acute (2) Calculus of distal left ureter: Code(s): N20.1 - Calculus of ureter Status: Acute (3) Septic shock due to urinary tract infection: Code(s): A41.9 - Sepsis, unspecified organism; R65.21 - Severe sepsis with septic shock; N39.0 - Urinary tract infection, site not specified Status: Acute (4) Hypertension: Code(s): I10 - Essential (primary) hypertension Status: Acute Plan Septic shock needing IV vasopressor likely source UTI and obstructive uropathy. UTI positive. Chest x-ray with possible minimal central haziness correlate for minimal central pulmonary edema. CT abdomen pelvis 02/15/2023 with 3-4 mm stone at left ureteral pelvic junction with mild left hydronephrosis. Off Levophed since 02/16/2023. Lactic acidosis resolved now. Remains on IV fluid. Stop IV fluids. Bacteremia with E coli x2 WBC count worsened to 35 K. continue trend WBC count. No diarrhea urine culture with E coli pansensitive. Thrombocytopenia [phone] creatinine bumped up to 2.2, now resolved. AST ALT in 1000 likely suggestive of shock liver. Which is improving. Chest x-ray with minimal haziness left lung base. Lovenox held due to thrombocytopenia which has been worsening likely related to sepsis as well. Thrombocytopenia persist. Hypoxia: Slowly improving. Chest x-ray reviewed. Will repeat chest x-ray today need given dose of Lasix today congestive changes. Renal failure has resolved UTI with obstructive uropathy status post cystoscopy and left ureter stent placement On Zosyn and vancomycin Zosyn switched to ceftriaxone follow urine culture. Urine culture growing pansensitive E coli. Continue ceftriaxone 2 g IV daily. Will stop vancomycin today Recheck blood culture x2 DVT prophylaxis Lovenox REZA creatinine 1.7 on admission. Earlier on 02/15 creatinine was 1.09. Creatinine continues to worsen 2.2 but now resolved. Urine output adequate continue to monitor. Continue Gasca catheter. Will order PT OT Mild thrombocytopenia continue to monitor Mild hyponatremia Hypokalemia replace and monitor Lactic acidosis Code status full code Subjective Date/time seen: 02/18/23 14:11 Interval history: Feeling a bit better. Self insular short of breath. Labs were reviewed. Lactic acid has normalized. Remains afebrile. Review of Systems Review of Systems: All systems reviewed & are unremarkable except as noted in HPI and below Exam Narrative: GENERAL: Alert and oriented x3 not in acute distress HEAD: Normocephalic, atraumatic. EYES: PERRLA and EOMI. ENT: Nares clear, no rhinorrhea or epistaxis.? Mucous membranes moist.? O NECK: Supple.? No adenopathy or masses.? CHEST: No respiratory distress. Mild wheezes noted. HEART: Regular rate and rhythm.? No murmur heard.? Normal peripheral pulses. ABDOMEN: Soft nontender, nondistended, normal active bowel sounds. MSK: Normal range of motion.? No edema. SKIN: Warm, dry, no rash. NEURO: Alert and oriented x4.? Awake PSYCH: Normal mood and affect. Objective Data Vital Signs Vital Signs: Vital Signs - 24 hr 02/17/23 16:00 02/17/23 16:00 02/17/23 16:00 Temperature 98.0 F Pulse Rate 82 82 82 Respiratory Rate 21 H 18 Blood Pressure 141/88 H Pulse Oximetry 96 96 Oxygen Delivery Nasal Cannula Oxygen Flow Rate 5 02/17/23 18:00 02/17/23 20:37 02/17/23 20:38 Temperature 98.2 F Pulse Rate 87 89 90 Respiratory Rate 20 20 Blood Pressure 154/84 H Pulse Oximetry 91 98 Oxygen Delivery Nasal Cannula Oxygen Flow Rate 3 02/17/23 20:30 02/17/23 20:00 02/17/23 22:00 Temperature Pulse Rate 91 99 Respiratory Rate Blood Pressure Pulse Oximetry 95 Oxygen Delivery Nasal Cannula Oxygen Flow Rate 3 02/17/23 22:30 02/18/23 00:00 02/18/23 00:00 Temperature 97.7 F Pulse Rate 102 H 89 86 Respiratory Rate 1
[2023-02-18] MEDS: FUROSEMIDE INJ 40 MG/4 ML VIAL 20 MG IV PUSH (18:06)
[2023-02-19] VITALS (23 sets, daily range): BP systolic 136–153; BP diastolic 71–96; PULSE 66–88; RESP 16–20; TEMP 36.3–36.8; O2SAT 94–99
[2023-02-19] MEDS: IPRATROPIUM BR 0.02% INH SOLN 0.5 MG/2.5 ML VIAL INHALATION ×4 (01:07→21:00)
[2023-02-19] MEDS: ALBUTEROL SULFATE NEB 2.5 MG/3 ML INH INHALATION ×4 (01:07→21:00)
[2023-02-19 04:38] LABS: Basophils Absolute Auto 0.1 K/mm3 (0.0-0.1); Basophils Percent Auto 0.2 % (0.2-1.2); Eosinophils Absolute Auto 0.1 K/mm3 (0-0.3); Eosinophils Percent Auto 0.3 % (0-4.4); Hemoglobin 10.6 g/dL (12.0-15.0); Immature Granulocyte Absolute 1.04 K/mm3 (0.00-0.031); Immature Platelet Fraction Pct 8.6 % (0.9-11.2); Lymphocytes Absolute Auto 2.67 K/mm3 (0.9-3.2); Lymphocytes Percent Auto 7.8 % (18.3-44.2); Mean Corpuscular HGB Conc 33.1 g/dl (32-36); Mean Corpuscular Volume 81.4 fl (80-100); Mean Platelet Volume 10.8 fl (7.4-10.4); Monocytes Percent Auto 5.8 % (2.6-8.5); Neutrophils Absolute Auto 28.6 K/mm3 (1.3-6.7); Neutrophils Percent Auto 82.9 % (45.5-73.1); Nucleated Red Blood Cells Perc 0.1 % (0.0-0.2); Platelet Count Result 95 k/mm3 (150-375); Red Blood Count 3.93 M/mm3 (4.2-5.4); Red Cell Distribution Width 15.9 % (11.5-14.5); White Blood Count 34.5 K/mm3 (4.5-10.0)
[2023-02-19 05:07] LABS: Alanine Aminotransferase 679 U/L (6-35); Albumin Level 3.8 g/dL (3.5-5.1); Alkaline Phosphatase 149 U/L (38-126); Anion Gap 7 mmol/L (8-16); Aspartate Amino Transferase 156 U/L (14-36); Blood Urea Nitrogen 24 mg/dL (7-17); Calcium 8.5 mg/dL (8.4-10.2); Carbon Dioxide 25 mmol/L (22-30); Chloride 108 mmol/L (98-107); Estimated CRCL calculation 67 ml/min; Estimated Glomerular Filt Rate > 60; Glucose 98 mg/dL (65-110); Magnesium 2.1 mg/dL (1.6-2.3); Phosphorus 2.1 mg/dL (2.5-4.5); Potassium 2.6 mmol/L (3.4-5.0); Sodium 140 mmol/L (137-145)
[2023-02-19] MEDS: POTASSIUM CHLORIDE INJ 40 MEQ in SODIUM CHLORIDE 0.9% IV 500 ML 125 MEQ IVPB (05:59)
[2023-02-19] MEDS: cefTRIAXone 2 GM/NS 100 ML 2 GM/100 ML BAG IVPB (09:18)
[2023-02-19] MEDS: DOCUSATE SODIUM 100 MG CAPSULE PO ×2 (09:19→16:56)
--- NOTE | 2023-02-19 11:05 | PM.IMPN ---
Progress Note: A&P Assessment and Plan (1) Kidney stone: Code(s): N20.0 - Calculus of kidney Status: Acute (2) Calculus of distal left ureter: Code(s): N20.1 - Calculus of ureter Status: Acute (3) Septic shock due to urinary tract infection: Code(s): A41.9 - Sepsis, unspecified organism; R65.21 - Severe sepsis with septic shock; N39.0 - Urinary tract infection, site not specified Status: Acute (4) Hypertension: Code(s): I10 - Essential (primary) hypertension Status: Acute Plan # Septic shock needing IV vasopressor likely source UTI and obstructive uropathy. UTI positive. Chest x-ray with possible minimal central haziness correlate for minimal central pulmonary edema. CT abdomen pelvis 02/15/2023 with 3-4 mm stone at left ureteral pelvic junction with mild left hydronephrosis. Off Levophed since 02/16/2023. Lactic acidosis resolved now. Remains on IV fluid. Stop IV fluids. # Bacteremia with E coli x2 WBC count worsened to 35 K. continue trend WBC count. No diarrhea urine culture with E coli pansensitive. Thrombocytopenia [phone] creatinine bumped up to 2.2, now resolved. AST ALT in 1000 likely suggestive of shock liver. Which is improving. Chest x-ray with minimal haziness left lung base. Lovenox held due to thrombocytopenia which has been worsening likely related to sepsis as well. Thrombocytopenia persist BUT NOW IMPROVING # Hypoxia: Slowly improving. Chest x-ray reviewed. CHEST X-RAY WITH CONGESTIVE CHANGES. RECEIVED LASIX IV. RE-DOSE LASIX AGAIN TODAY Renal failure has resolved # UTI with obstructive uropathy status post cystoscopy and left ureter stent placement On Zosyn and vancomycin Zosyn switched to ceftriaxone follow urine culture. Urine culture growing pansensitive E coli. Continue ceftriaxone 2 g IV daily. Will stop vancomycin today Recheck blood culture x2 ON 02/18/2023 # DVT prophylaxis Lovenox # REZA creatinine 1.7 on admission. Earlier on 02/15 creatinine was 1.09. Creatinine continues to worsen 2.2 but now resolved. Urine output adequate continue to monitor. Continue Gasca catheter. Will order PT OT # Mild thrombocytopenia continue to monitor # Mild hyponatremia # Hypokalemia replace and monitor # Lactic acidosis # Code status full code Subjective Date/time seen: 02/19/23 11:05 Interval history: No overnight events. Feeling better. Breathing is better. No nausea vomiting. Review of Systems Review of Systems: All systems reviewed & are unremarkable except as noted in HPI and below Exam Narrative: GENERAL: Alert and oriented x3 not in acute distress HEAD: Normocephalic, atraumatic. EYES: PERRLA and EOMI. ENT: Nares clear, no rhinorrhea or epistaxis.? Mucous membranes moist.? NECK: Supple.? No adenopathy or masses.? CHEST: No respiratory distress. mild conversational dyspnea HEART: Regular rate and rhythm.? No murmur heard.? Normal peripheral pulses. ABDOMEN: Soft nontender, nondistended, normal active bowel sounds. MSK: Normal range of motion.? No edema. SKIN: Warm, dry, no rash. NEURO: Alert and oriented x4.? Awake PSYCH: Normal mood and affect. Objective Data Vital Signs Vital Signs: Vital Signs - 24 hr 02/18/23 11:36 02/18/23 12:00 02/18/23 12:00 Temperature 96.1 F L Pulse Rate 81 86 Respiratory Rate 20 Blood Pressure 148/82 H Pulse Oximetry 100 98 Oxygen Delivery Nasal Cannula Oxygen Flow Rate 3 02/18/23 14:44 02/18/23 15:00 02/18/23 14:00 Temperature Pulse Rate 75 88 73 Respiratory Rate 20 20 Blood Pressure Pulse Oximetry Oxygen Delivery Oxygen Flow Rate 02/18/23 16:00 02/18/23 16:00 02/18/23 16:00 Temperature 96.5 F L Pulse Rate 79 76 Respiratory Rate 18 Blood Pressure 148/81 H Pulse Oximetry 99 97 Oxygen Delivery Nasal Cannula Oxygen Flow Rate 3 02/18/23 19:43 02/18/23 18:00 02/18/23 20:19 Temperature 97.6 F Pulse Rate 73 76 Respiratory Rate 20
[2023-02-19] MEDS: FUROSEMIDE INJ 40 MG/4 ML VIAL 20 MG IV PUSH (12:03)
--- NOTE | 2023-02-19 16:18 | PC.NURSE ---
This patient, Sara Gore, was transferred to [[id number] ] on 02/19/23 at 1619. Personal belongings sent with patient. Appropriate documentation sent with patient.
--- NOTE | 2023-02-19 16:20 | PC.NURSE ---
This patient, Sara Gore, was received from [id number] on 02/19/23 at 1620. Patient/family oriented to unit policies and routines
[2023-02-19] MEDS: POTASSIUM CHLORIDE 20 MEQ ER TABLET 40 MEQ PO (16:56)
[2023-02-19] MEDS: POTASSIUM PHOS/SODIUM PHOS 250 MG TABLET PO (16:57)
[2023-02-20] VITALS (21 sets, daily range): BP systolic 144–170; BP diastolic 73–92; PULSE 66–85; RESP 15–18; TEMP 36.4–38; O2SAT 93–100
[2023-02-20] MEDS: ALBUTEROL SULFATE NEB 2.5 MG/3 ML INH INHALATION ×4 (02:30→19:50)
[2023-02-20] MEDS: IPRATROPIUM BR 0.02% INH SOLN 0.5 MG/2.5 ML VIAL INHALATION ×4 (02:30→19:51)
[2023-02-20 06:36] LABS: Hematocrit 34.6 % (37.0-47.0); Hemoglobin 11.1 g/dL (12.0-15.0); Mean Corpuscular HGB Conc 32.1 g/dl (32-36); Mean Corpuscular Hemoglobin 26.5 pg (26-34); Mean Corpuscular Volume 82.6 fl (80-100); Mean Platelet Volume 11.2 fl (7.4-10.4); Platelet Count Result 110 k/mm3 (150-375); Red Blood Count 4.19 M/mm3 (4.2-5.4); Red Cell Distribution Width 16.4 % (11.5-14.5)
[2023-02-20 06:46] LABS: Alanine Aminotransferase 422 U/L (6-35); Albumin Level 3.6 g/dL (3.5-5.1); Alkaline Phosphatase 158 U/L (38-126); Anion Gap 9 mmol/L (8-16); Aspartate Amino Transferase 68 U/L (14-36); Blood Urea Nitrogen 25 mg/dL (7-17); Calcium 8.7 mg/dL (8.4-10.2); Carbon Dioxide 24 mmol/L (22-30); Chloride 108 mmol/L (98-107); Estimated CRCL calculation 85 ml/min; Estimated Glomerular Filt Rate > 60; Glucose 95 mg/dL (65-110); Magnesium 1.8 mg/dL (1.6-2.3); Sodium 141 mmol/L (137-145)
[2023-02-20 07:41] LABS: Band Neutrophils Percent 11 % (0-6); Basophils Absolute Manual 0.25 K/mm3 (0.0-0.1); Basophils Percent Manual 1 % (0-1); Eosinophils Percent Manual 2 % (0-4); Lymphocytes Absolute Manual 1.75 K/mm3 (1.1-4.5); Metamyelocytes Percent 2 %; Monocytes Percent Manual 2 % (3-9); Neutrophils Percent Manual 75 % (46-73); Nucleated Red Blood Cells 1 %; Total Cells Counted 100
[2023-02-20 07:42] LABS: Platelet Estimate Decreased (Adequate); Schistocytes None Seen (NORMAL)
[2023-02-20] MEDS: DOCUSATE SODIUM 100 MG CAPSULE PO ×2 (09:12→16:55)
[2023-02-20] MEDS: cefTRIAXone 2 GM/NS 100 ML 2 GM/100 ML BAG IVPB (09:12)
[2023-02-20] MEDS: POTASSIUM CHLORIDE 20 MEQ ER TABLET 40 MEQ PO ×2 (09:17→16:57)
--- NOTE | 2023-02-20 10:58 | PM.IMPN ---
Progress Note: A&P Assessment and Plan (1) Kidney stone: Code(s): N20.0 - Calculus of kidney Status: Acute (2) Calculus of distal left ureter: Code(s): N20.1 - Calculus of ureter Status: Acute (3) Septic shock due to urinary tract infection: Code(s): A41.9 - Sepsis, unspecified organism; R65.21 - Severe sepsis with septic shock; N39.0 - Urinary tract infection, site not specified Status: Acute (4) Hypertension: Code(s): I10 - Essential (primary) hypertension Status: Acute Plan # Septic shock needing IV vasopressor likely source UTI and obstructive uropathy. UTI positive. Chest x-ray with possible minimal central haziness correlate for minimal central pulmonary edema. CT abdomen pelvis 02/15/2023 with 3-4 mm stone at left ureteral pelvic junction with mild left hydronephrosis. Off Levophed since 02/16/2023. Lactic acidosis resolved now. Remains on IV fluid. Stop IV fluids. and started diuresis p.r.n. # Bacteremia with E coli x2 WBC count worsened to 35 K. continue trend WBC count. No diarrhea urine culture with E coli pansensitive. Thrombocytopenia [phone] creatinine bumped up to 2.2, now resolved. AST ALT in 1000 likely suggestive of shock liver. Which is improving. Chest x-ray with minimal haziness left lung base. Lovenox held due to thrombocytopenia which has been worsening likely related to sepsis as well. Thrombocytopenia persist BUT NOW IMPROVING will place her back on Lovenox # Hypoxia: Slowly improving. Chest x-ray reviewed. CHEST X-RAY WITH CONGESTIVE CHANGES. RECEIVED LASIX IV. RE-DOSE LASIX p.r.n.Renal failure has resolved check BNP # UTI with obstructive uropathy status post cystoscopy and left ureter stent placement On Zosyn and vancomycin Zosyn switched to ceftriaxone follow urine culture. Urine culture growing pansensitive E coli. Continue ceftriaxone 2 g IV daily. . Vancomycin 02/18/2023 Recheck blood culture x2 ON 02/18/2023 which is pending # DVT prophylaxis Lovenox # REZA creatinine 1.7 on admission. Earlier on 02/15 creatinine was 1.09. Creatinine continues to worsen 2.2 but now resolved. Urine output adequate continue to monitor. Continue Gasca catheter. Will order PT OT # Mild thrombocytopenia continue to monitor # Mild hyponatremia # Hypokalemia replace and monitor # Lactic acidosis # Code status full code Subjective Date/time seen: 02/20/23 10:58 Interval history: feeling better. Leg swelling persists. Shortness of breath is mild has been coughing with some expectoration. Denies any chest pain. Overall feels better. Review of Systems Review of Systems: All systems reviewed & are unremarkable except as noted in HPI and below Exam Narrative: GENERAL: Alert and oriented x3 not in acute distress HEAD: Normocephalic, atraumatic. EYES: PERRLA and EOMI. ENT: Nares clear, no rhinorrhea or epistaxis.? Mucous membranes moist.? NECK: Supple.? No adenopathy or masses.? CHEST: No respiratory distress. clear to auscultation bilaterally HEART: Regular rate and rhythm.? No murmur heard.? Normal peripheral pulses. ABDOMEN: Soft nontender, nondistended, normal active bowel sounds. MSK: Normal range of motion. Edema 1+ bilateral lower extremity SKIN: Warm, dry, no rash. NEURO: Alert and oriented x4.? Awake PSYCH: Normal mood and affect. Objective Data Vital Signs Vital Signs: Vital Signs - 24 hr 02/19/23 12:00 02/19/23 13:59 02/19/23 14:19 Temperature Pulse Rate 81 86 74 Respiratory Rate 18 18 Blood Pressure Pulse Oximetry Oxygen Delivery 02/19/23 16:00 02/19/23 16:25 02/19/23 21:01 Temperature 98.2 F Pulse Rate 74 70 78 Respiratory Rate 16 16 Blood Pressure 153/71 H Pulse Oximetry 94 Oxygen Delivery 02/19/23 21:09 02/19/23 20:00 02/19/23 22:00 Temperature 97.5 F L Pulse Rate 79 73 Respiratory Rate 16 20 Blood Pressure 136/96 H Pulse Oximetry 96 96 Oxygen Delivery Room Air
[2023-02-20 11:24] LABS: NT Pro B Type Natriuretic Pept 3880 pg/mL (19.9-100)
[2023-02-20] MEDS: FUROSEMIDE INJ 40 MG/4 ML VIAL IV PUSH (12:10)
[2023-02-20] MEDS: ACETAMINOPHEN 325 MG TABLET 650 MG PO (20:51)
[2023-02-20] MEDS: FLUTICASONE PROPIONATE 0.05% NA SPR 16 GM BTL (*BKC) 1 SPRAY NASAL (20:54)
[2023-02-20] MEDS: amLODIPine BESYLATE 5 MG TABLET PO (21:30)
[2023-02-21] VITALS (15 sets, daily range): BP systolic 138–149; BP diastolic 73–90; PULSE 66–83; RESP 18–22; TEMP 35.7–37.3; O2SAT 94–97
[2023-02-21] MEDS: ALBUTEROL SULFATE NEB 2.5 MG/3 ML INH INHALATION ×4 (02:29→20:39)
[2023-02-21] MEDS: IPRATROPIUM BR 0.02% INH SOLN 0.5 MG/2.5 ML VIAL INHALATION ×4 (02:29→20:38)
[2023-02-21 06:59] LABS: Hematocrit 35.5 % (37.0-47.0); Hemoglobin 11.4 g/dL (12.0-15.0); Mean Corpuscular HGB Conc 32.1 g/dl (32-36); Mean Corpuscular Hemoglobin 26.9 pg (26-34); Mean Corpuscular Volume 83.7 fl (80-100); Platelet Count Result 118 k/mm3 (150-375); Red Blood Count 4.24 M/mm3 (4.2-5.4); Red Cell Distribution Width 16.6 % (11.5-14.5); White Blood Count 21.7 K/mm3 (4.5-10.0)
[2023-02-21 08:12] LABS: Alanine Aminotransferase 290 U/L (6-35); Albumin Level 3.7 g/dL (3.5-5.1); Alkaline Phosphatase 152 U/L (38-126); Anion Gap 8 mmol/L (8-16); Aspartate Amino Transferase 37 U/L (14-36); Blood Urea Nitrogen 21 mg/dL (7-17); Calcium 8.9 mg/dL (8.4-10.2); Carbon Dioxide 25 mmol/L (22-30); Chloride 106 mmol/L (98-107); Estimated CRCL calculation 72 ml/min; Estimated Glomerular Filt Rate > 60; Glucose 96 mg/dL (65-110); Magnesium 1.7 mg/dL (1.6-2.3); Phosphorus 3.4 mg/dL (2.5-4.5); Potassium 3.2 mmol/L (3.4-5.0); Sodium 139 mmol/L (137-145)
[2023-02-21 08:30] LABS: Band Neutrophils Percent 17 % (0-6); Eosinophils Absolute Manual 0.21 K/mm3 (0.02-0.5); Eosinophils Percent Manual 1 % (0-4); Lymphocytes Absolute Manual 3.68 K/mm3 (1.1-4.5); Monocytes Absolute Manual 1.73 K/mm3 (0.1-0.90); Monocytes Percent Manual 8 % (3-9); Neutrophils Absolute Manual 16.05 K/mm3 (1.7-7.2); Neutrophils Percent Manual 57 % (46-73); Total Cells Counted 100
[2023-02-21 08:31] LABS: Hypochromasia 1+ (NORMAL); Platelet Estimate Decreased (Adequate); Schistocytes None Seen (NORMAL)
[2023-02-21] MEDS: ENOXAPARIN 40 MG/0.4 ML SYRINGE SUB-Q (09:09)
[2023-02-21] MEDS: DOCUSATE SODIUM 100 MG CAPSULE PO ×2 (09:09→17:31)
[2023-02-21] MEDS: POTASSIUM CHLORIDE 20 MEQ ER TABLET 40 MEQ PO ×2 (09:09→15:42)
[2023-02-21] MEDS: FLUTICASONE PROPIONATE 0.05% NA SPR 16 GM BTL (*BKC) 1 SPRAY NASAL ×2 (09:10→21:36)
[2023-02-21] MEDS: cefTRIAXone 2 GM/NS 100 ML 2 GM/100 ML BAG IVPB (09:10)
--- NOTE | 2023-02-21 13:53 | PM.IMPN ---
Progress Note: A&P Assessment and Plan (1) Kidney stone: Code(s): N20.0 - Calculus of kidney Status: Acute (2) Calculus of distal left ureter: Code(s): N20.1 - Calculus of ureter Status: Acute (3) Septic shock due to urinary tract infection: Code(s): A41.9 - Sepsis, unspecified organism; R65.21 - Severe sepsis with septic shock; N39.0 - Urinary tract infection, site not specified Status: Acute (4) Hypertension: Code(s): I10 - Essential (primary) hypertension Status: Acute Plan # Septic shock needing IV vasopressor likely source UTI and obstructive uropathy. UTI positive. Chest x-ray with possible minimal central haziness correlate for minimal central pulmonary edema. CT abdomen pelvis 02/15/2023 with 3-4 mm stone at left ureteral pelvic junction with mild left hydronephrosis. Off Levophed since 02/16/2023. Lactic acidosis resolved now. Stop IV fluids. and started diuresis p.r.n. # Bacteremia with E coli x2 WBC count worsened to 35 K. continue trend WBC count. No diarrhea urine culture with E coli pansensitive. Thrombocytopenia [phone] creatinine bumped up to 2.2, now resolved. AST ALT in 1000 likely suggestive of shock liver. Which is improving. Chest x-ray with minimal haziness left lung base. Lovenox held due to thrombocytopenia which has been worsening likely related to sepsis as well. Thrombocytopenia persist BUT NOW IMPROVING back on Lovenox # Hypoxia: Slowly improving. Chest x-ray reviewed. CHEST X-RAY WITH CONGESTIVE CHANGES. RECEIVED LASIX IV. RE-DOSE LASIX p.r.n.Renal failure has resolved BNP elevated at more than 3000. Continue diuresis p.r.n. # UTI with obstructive uropathy status post cystoscopy and left ureter stent placement On Zosyn and vancomycin Zosyn switched to ceftriaxone follow urine culture. Urine culture growing pansensitive E coli. Continue ceftriaxone 2 g IV daily. . Vancomycin 02/18/2023 Recheck blood culture x2 ON 02/18/2023 which is negative to date ceftriaxone aunts 02/25/2023 can switch to oral when ready for discharge # DVT prophylaxis Lovenox # REZA creatinine 1.7 on admission. Earlier on 02/15 creatinine was 1.09. Creatinine continues to worsen 2.2 but now resolved. Urine output adequate continue to monitor. Continue Gasca catheter. # Mild thrombocytopenia continue to monitor # Mild hyponatremia # Hypokalemia replace and monitor # Lactic acidosis # Code status full code Disposition: Await improvement in WBC count continue diuresis p.r.n. Subjective Date/time seen: 02/21/23 13:53 Interval history: feeling better. Breathing is better cough has improved leg swelling still present. Labs were reviewed discussed with the family and the patient Review of Systems Review of Systems: All systems reviewed & are unremarkable except as noted in HPI and below Exam Narrative: GENERAL: Alert and oriented x3 not in acute distress HEAD: Normocephalic, atraumatic. EYES: PERRLA and EOMI. ENT: Nares clear, no rhinorrhea or epistaxis.? Mucous membranes moist.? NECK: Supple.? No adenopathy or masses.? CHEST: No respiratory distress. clear to auscultation bilaterally HEART: Regular rate and rhythm.? No murmur heard.? Normal peripheral pulses. ABDOMEN: Soft nontender, nondistended, normal active bowel sounds. MSK: Normal range of motion. Edema 1+ bilateral lower extremity SKIN: Warm, dry, no rash. NEURO: Alert and oriented x4.? Awake PSYCH: Normal mood and affect. Objective Data Vital Signs Vital Signs: Vital Signs - 24 hr 02/20/23 14:00 02/20/23 16:00 02/20/23 19:43 Temperature 97.6 F Pulse Rate 85 74 Respiratory Rate 16 Blood Pressure 144/81 H Pulse Oximetry 100 95 Oxygen Delivery Room Air 02/20/23 19:48 02/20/23 20:01 02/20/23 20:51 Temperature 100.4 F H Pulse Rate 83 80 Respiratory Rate 18 18 Blood Pressure Pulse Oximetry Oxygen Delivery 02/20/23 21:59 02/20/23 21:00 02/20/23 20:00
[2023-02-21] MEDS: FUROSEMIDE 40 MG TABLET PO (15:42)
[2023-02-21] MEDS: amLODIPine BESYLATE 5 MG TABLET PO (21:37)
[2023-02-22] VITALS (13 sets, daily range): BP systolic 149–169; BP diastolic 61–90; PULSE 70–86; RESP 18–20; TEMP 35.6–36.8; O2SAT 94–98
[2023-02-22] MEDS: IPRATROPIUM BR 0.02% INH SOLN 0.5 MG/2.5 ML VIAL INHALATION ×4 (02:31→21:36)
[2023-02-22] MEDS: ALBUTEROL SULFATE NEB 2.5 MG/3 ML INH INHALATION ×4 (02:31→21:36)
[2023-02-22] MEDS: cefTRIAXone 2 GM/NS 100 ML 2 GM/100 ML BAG IVPB (09:16)
[2023-02-22] MEDS: ASCORBIC ACID 500 MG TABLET PO (09:16)
[2023-02-22] MEDS: DOCUSATE SODIUM 100 MG CAPSULE PO ×2 (09:16→16:14)
[2023-02-22] MEDS: ENOXAPARIN 40 MG/0.4 ML SYRINGE SUB-Q (09:17)
[2023-02-22] MEDS: FLUTICASONE PROPIONATE 0.05% NA SPR 16 GM BTL (*BKC) 1 SPRAY NASAL ×2 (09:17→20:19)
--- NOTE | 2023-02-22 11:47 | PCNWS ---
Weekly nutritional screen. Patient is tolerating current diet with adequate intake 90-100%. No weight loss reported. No nutritional needs at this time.
[2023-02-22 14:49] LABS: Hematocrit 39.1 % (37.0-47.0); Hemoglobin 12.4 g/dL (12.0-15.0); Mean Corpuscular HGB Conc 31.7 g/dl (32-36); Mean Corpuscular Hemoglobin 26.6 pg (26-34); Mean Corpuscular Volume 83.7 fl (80-100); Mean Platelet Volume 10.7 fl (7.4-10.4); Platelet Count Result 154 k/mm3 (150-375); Red Blood Count 4.67 M/mm3 (4.2-5.4); Red Cell Distribution Width 17.5 % (11.5-14.5); White Blood Count 17.1 K/mm3 (4.5-10.0)
[2023-02-22 15:00] LABS: Anion Gap 11 mmol/L (8-16); Blood Urea Nitrogen 19 mg/dL (7-17); Calcium 9.5 mg/dL (8.4-10.2); Carbon Dioxide 25 mmol/L (22-30); Chloride 100 mmol/L (98-107); Estimated CRCL calculation 82 ml/min; Estimated Glomerular Filt Rate > 60; Glucose 95 mg/dL (65-110); Magnesium 1.8 mg/dL (1.6-2.3); Potassium 3.3 mmol/L (3.4-5.0); Sodium 136 mmol/L (137-145)
[2023-02-22 15:41] LABS: Band Neutrophils Percent 8 % (0-6); Basophils Absolute Manual 0.17 K/mm3 (0.0-0.1); Basophils Percent Manual 1 % (0-1); Hypochromasia 1+ (NORMAL); Lymphocytes Absolute Manual 2.39 K/mm3 (1.1-4.5); Monocytes Absolute Manual 1.02 K/mm3 (0.1-0.90); Monocytes Percent Manual 6 % (3-9); Neutrophils Percent Manual 71 % (46-73); Platelet Estimate Adequate (Adequate); Schistocytes None Seen (NORMAL); Total Cells Counted 100
[2023-02-22 15:42] LABS: Anisocytosis 2+ (NORMAL)
--- NOTE | 2023-02-22 18:16 | PC.NURSE ---
Pt has been up and moving around the halls. Pt is A&O4 and has participated and contributed in plan of care. Pt has denied any pain. Pt has had good urine output and has had 3 BM's today. Pt worked with therapy and tolerated well. Pt family and friends have visited all day. Pt has been monitored for any changes in status. Will continue to monitor pt.
--- NOTE | 2023-02-22 18:28 | PM.IMPN ---
Progress Note: A&P Assessment and Plan (1) Electrolyte imbalance: Code(s): E87.8 - Other disorders of electrolyte and fluid balance, not elsewhere classified Status: Acute (2) Elevated LFTs: Code(s): R79.89 - Other specified abnormal findings of blood chemistry Status: Acute (3) UTI (urinary tract infection): Code(s): N39.0 - Urinary tract infection, site not specified Status: Acute (4) Acute kidney injury: Code(s): N17.9 - Acute kidney failure, unspecified Status: Acute (5) Hypertension: Code(s): I10 - Essential (primary) hypertension Status: Acute (6) Septic shock due to urinary tract infection: Code(s): A41.9 - Sepsis, unspecified organism; R65.21 - Severe sepsis with septic shock; N39.0 - Urinary tract infection, site not specified Status: Acute Plan greatly improved. replace potassium and recheck in am. trend white count. if resolved tomorrow can consider d/c back to home. give lasix small dose 20mg iv x1 for trace b/l Le edema and crackles. likely iatrogenic fluid overload. Subjective Date/time seen: 02/22/23 18:28 Interval history: NAOE. she has been walking the halls indepdently. she reports mild deshpande. no chest pain or abdominal pain. tolerating diet. Review of Systems Cardiovascular: Cardiovascular: Denies chest pain and Denies dyspnea Respiratory: Respiratory: Denies cough and Denies dyspnea Gastrointestinal: Gastrointestinal: Denies abdominal pain and Denies vomiting Exam Const: General: no acute distress, alert and Physically active Resp: Effort & Inspection: normal respiratory effort Auscultation: crackles (mild, bibasilar) Cardio: Rate: regular rate Rhythm: regular rhythm Heart sounds: S1 normal heart sound present and S2 normal heart sound present GI: Inspection: non-distended GI Palp: No abdominal tenderness Auscultation: normal bowel sounds Extrem: Right upper extremity: no edema Objective Data Vital Signs Vital Signs: Vital Signs - 24 hr 02/21/23 20:39 02/21/23 20:42 02/21/23 21:47 Temperature 99.1 F Pulse Rate 77 77 79 Respiratory Rate 18 18 18 Blood Pressure 149/79 H Pulse Oximetry 97 96 Oxygen Delivery Room Air 02/22/23 02:31 02/22/23 02:39 02/21/23 20:00 Temperature Pulse Rate 79 80 Respiratory Rate Blood Pressure Pulse Oximetry Oxygen Delivery Room Air 02/22/23 05:56 02/22/23 09:16 02/22/23 09:31 Temperature 98 F Pulse Rate 80 Respiratory Rate 18 Blood Pressure 149/61 H Pulse Oximetry 94 96 Oxygen Delivery Room Air Room Air 02/22/23 09:26 02/22/23 09:43 02/22/23 14:00 Temperature 96.1 F L Pulse Rate 76 77 81 Respiratory Rate 20 Blood Pressure 164/88 H Pulse Oximetry 98 Oxygen Delivery 02/22/23 14:44 02/22/23 14:58 Temperature Pulse Rate 70 72 Respiratory Rate Blood Pressure Pulse Oximetry Oxygen Delivery Intake/Output Intake/Output: Intake & Output 02/19/23 02/20/23 02/21/23 02/22/23 23:59 23:59 23:59 23:59 Intake Total 2410 1658 1220 2630 Output Total 1800 3600 3450 3100 Balance 610 -1942 -2230 -470 Meds/Results Medications: Active Medications Generic Name Dose Route Start Last Admin Trade Name Freq PRN Reason Stop Dose Admin Acetaminophen 650 mg 02/16/23 05:27 02/20/23 20:51 Acetaminophen 325 Mg Tablet PO 650 mg Q4H PRN Administration Mild Pain (1-3) or Fever Al Hydrox/Mg Hydrox/Simethicone 30 ml 02/16/23 05:27 Mag Hydrox/Al Hydrox/Simeth 30 Ml Udc PO QID PRN Dyspepsia Albuterol 2.5 mg 02/16/23 10:40 02/22/23 14:43 Albuterol Sulfate Neb 2.5 Mg/3 Ml Inh INHALATION 2.5 mg Q6HRT DIPTI Administration Amlodipine Besylate 5 mg 02/20/23 21:00 02/21/23 21:37 Amlodipine Besylate 5 Mg Tablet PO 5 mg HS DIPTI Administration Ascorbic Acid 500 mg 02/22/23 09:00 02/22/23 09:16 Ascorbic Acid 500 Mg Tablet PO 500 mg QAM DIPTI Adminis
--- NOTE | 2023-02-22 19:39 | PC.NURSE ---
clarified lasix order with MD Alamnzar, only wants 20 mg PO lasix once given now d/c IM lasix order
[2023-02-22] MEDS: POTASSIUM CHLORIDE 20 MEQ PACKET (FOR LIQUID) PO (20:17)
[2023-02-22] MEDS: amLODIPine BESYLATE 5 MG TABLET PO (20:17)
[2023-02-22] MEDS: FUROSEMIDE 20 MG TABLET PO (20:32)
[2023-02-23] VITALS (7 sets, daily range): BP systolic 146–149; BP diastolic 72–75; PULSE 74–78; RESP 16–18; TEMP 36.4; O2SAT 95–98
[2023-02-23] MEDS: ALBUTEROL SULFATE NEB 2.5 MG/3 ML INH INHALATION ×2 (02:20→07:45)
[2023-02-23] MEDS: IPRATROPIUM BR 0.02% INH SOLN 0.5 MG/2.5 ML VIAL INHALATION ×2 (02:20→07:45)
[2023-02-23 06:24] LABS: Hematocrit 35.1 % (37.0-47.0); Hemoglobin 11.4 g/dL (12.0-15.0); Mean Corpuscular HGB Conc 32.5 g/dl (32-36); Mean Corpuscular Hemoglobin 26.9 pg (26-34); Mean Corpuscular Volume 82.8 fl (80-100); Mean Platelet Volume 11.1 fl (7.4-10.4); Platelet Count Result 157 k/mm3 (150-375); Red Blood Count 4.24 M/mm3 (4.2-5.4); Red Cell Distribution Width 16.9 % (11.5-14.5); White Blood Count 13.1 K/mm3 (4.5-10.0)
--- NOTE | 2023-02-23 06:29 | PC.NURSE ---
informed MD Frank of pt unequal pupil size anisocoria and PICKERING this morning, R pupil is bigger than Left, both still react to light. Pt on ipratropium, Md Frank states side effect of medication
[2023-02-23 06:35] LABS: Alanine Aminotransferase 153 U/L (6-35); Albumin Level 4.1 g/dL (3.5-5.1); Alkaline Phosphatase 136 U/L (38-126); Anion Gap 8 mmol/L (8-16); Aspartate Amino Transferase 30 U/L (14-36); Bilirubin,Total 0.8 mg/dL (0.2-1.3); Blood Urea Nitrogen 16 mg/dL (7-17); Calcium 9.2 mg/dL (8.4-10.2); Carbon Dioxide 25 mmol/L (22-30); Chloride 104 mmol/L (98-107); Estimated CRCL calculation 71 ml/min; Estimated Glomerular Filt Rate > 60; Glucose 101 mg/dL (65-110); Potassium 3.6 mmol/L (3.4-5.0); Sodium 137 mmol/L (137-145)
[2023-02-23] MEDS: ACETAMINOPHEN 325 MG TABLET 650 MG PO (06:56)
[2023-02-23] MEDS: cefTRIAXone 2 GM/NS 100 ML 2 GM/100 ML BAG IVPB (09:05)
[2023-02-23] MEDS: ENOXAPARIN 40 MG/0.4 ML SYRINGE SUB-Q (09:06)
[2023-02-23] MEDS: DOCUSATE SODIUM 100 MG CAPSULE PO (09:06)
[2023-02-23] MEDS: ASCORBIC ACID 500 MG TABLET PO (09:06)
[2023-02-23] MEDS: CHOLECALCIFEROL 1,000 UNITS TABLET 1000 UNITS PO (09:06)
[2023-02-23] MEDS: FLUTICASONE PROPIONATE 0.05% NA SPR 16 GM BTL (*BKC) 1 SPRAY NASAL (09:07)
--- NOTE | 2023-02-23 12:21 | PM.DS ---
DS: Admitting Diagnosis Discharge Date 02/23/23 Admitting Diagnosis UTI DS: Discharge Diagnosis Discharge Diagnosis (1) Elevated LFTs: Code(s): R79.89 - Other specified abnormal findings of blood chemistry Status: Acute (2) UTI (urinary tract infection): Code(s): N39.0 - Urinary tract infection, site not specified Status: Acute (3) Electrolyte imbalance: Code(s): E87.8 - Other disorders of electrolyte and fluid balance, not elsewhere classified Status: Acute (4) Acute kidney injury: Code(s): N17.9 - Acute kidney failure, unspecified Status: Acute (5) Kidney stone: Code(s): N20.0 - Calculus of kidney Status: Acute (6) Calculus of distal left ureter: Code(s): N20.1 - Calculus of ureter Status: Acute (7) Septic shock due to urinary tract infection: Code(s): A41.9 - Sepsis, unspecified organism; R65.21 - Severe sepsis with septic shock; N39.0 - Urinary tract infection, site not specified Status: Acute DS: Summary Hospital Course Hospital Course: 62F w/ PMH HTN presented with altered mental status. She was treated for UTI with sepsis and multiple other complications as detailed below: complicated UTI with sepsis and shock - treated with levophed, fluid resuscitation, vanc and zosyn --> ceftriaxone for a total 7 day course bacteremia - similar to urine culture. positive for e coli, sensitive to above and recevived 7 day course fluid overload - iatrogenic, resolved s/p lasix administration electrolyte imbalances - all resolved s/p Alonzo resolution ALONZO - 2/2 sepsis. resolved. left ureteral calculus - s/p stent placement on 02/16 f/u with urology for definitive treatment in 2-3 weeks. stable and back to her baseline status on 02/23, discharge to home. More than 30 minutes spent on discharge planning and documentation. Time Spent with Patient Time attestation: Total time spent providing and/or coordinating discharge services: Exam Const: General: comfortable and no acute distress Eyes: Pupils: Equal, round and reactive pupils present EOM: EOMs intact bilaterally Neck: Neck: supple Resp: Effort & Inspection: normal respiratory effort Auscultation: clear to auscultation bilaterally Cardio: Rate: regular rate Rhythm: regular rhythm GI: GI Palp: Yes Soft to palpation Auscultation: normal bowel sounds Neuro: General: gait normal Motor exam (neuro): 5/5 motor strength present throughout Sensory Exam: normal sensation Extrem: General: no edema DS: Data Data Completed and Pending Labs on day of discharge: Labs from last 24 hours 02/23/23 02/22/23 05:35 14:38 WBC 13.1 H 17.1 H RBC 4.24 4.67 Hgb 11.4 L 12.4 Hct 35.1 L 39.1 MCV 82.8 83.7 MCH 26.9 26.6 MCHC 32.5 31.7 L RDW 16.9 H 17.5 H Plt Count 157 154 MPV 11.1 H 10.7 H Immature Gran % (Auto) Not Reportable Neut % (Auto) Not Reportable Lymph % (Auto) Not Reportable [place] % (Auto) Not Reportable Eos % (Auto) Not Reportable Baso % (Auto) Not Reportable Lymph # (Auto) Not Reportable [place] # (Auto) Not Reportable Eos # (Auto) Not Reportable Baso # (Auto) Not Reportable Abs Immat Gran (auto) Not Reportable Absolute Neuts (auto) Not Reportable Absolute Nucleated RBC Not Reportable Total Counted 100 Neutrophils % (Manual) 71 Band Neutrophils % 8 H Lymphocytes % (Manual) 14.0 L Monocytes % (Manual) 6 Basophils % (Manual) 1 Nucleated RBC % Not Reportable Abs Neuts (Manual) 13.50 H Abs Lymphs (Manual) 2.39 Abs Monocytes (Manual) 1.02 H Abs Basophils (Manual) 0.17 H Platelet Estimate Adequate Hypochromasia 1+ Anisocytosis 2+ Schistocytes None seen Sodium 137 136 L Potassium 3.6 3.3 L Chloride 104 100 Carbon Dioxide 25 25 Anion Gap 8 11 BUN 16 19 H Creatinine 0.80 0.70 Estim Creat Clear Calc 71 82 Estimated GFR > 60 > 60 Glucose 101 95 Calcium 9.2 9.
--- NOTE | 2023-02-23 17:56 | PC.NURSE ---
Pt discharged today with self care. Pt is A&O4 female who has participated and contributed in plan of care. Pt denies any pain. Pt was educated on discharge instructions and had been provided a list of primary care providers during her stay. Pt IV was removed, tip intact, pt tolerated well. Pt was provided with a note for work. Pt was monitored for any changes in status while here.
== END 2023-02-23 14:25 | disposition home or self-care (01) | DRG 853 ==
LOC: ANHED 02-16 01:30 → ANHSURGERY 02-16 02:09 → ANHICU 02-16 05:09 → ANHIMU 02-17 17:22 → ANH3MEDSUR 02-19 16:11
PROVIDERS: Anesthesiology; Internal Medicine; Student in an Organized Health Care Education/Training Program; Urology; Admitting Provider Internal Medicine; Emergency Provider Physician Assistant; PCP Internal Medicine; Visit Provider General Practice
PROC: 0T778DZ Dilation of Left Ureter with Intraluminal Device, Via Natural or Artificial Opening Endoscopic (ICD-10-PCS; CPT 52352; principal; 2023-02-16 03:30)
DX: A41.51 Sepsis due to Escherichia coli [E. coli] (principal); K72.00 Acute and subacute hepatic failure without coma; R65.21 Severe sepsis with septic shock; N13.6 Pyonephrosis; N17.9 Acute kidney failure, unspecified; E87.1 Hypo-osmolality and hyponatremia; E87.6 Hypokalemia; E87.70 Fluid overload, unspecified; D69.6 Thrombocytopenia, unspecified; I10 Essential (primary) hypertension; Z87.891 Personal history of nicotine dependence
CPT/HCPCS: 36415; 36600; 71045; 74420; 80048; 80053; 82805; 82948; 83605; 83735; 83880; 84100; 84132; 85025; 85027; 85055; 85610; 85730; 86140; 87040; 87077; 87186; 93005; 94640; 96361; 96365; 96375; 97110; 97116; 97161; 97165; 97530; 97535; 99291; A9270; C1751; C1758; C1769; C2617; G0378; J0613; J0696; J0780; J1100; J1650; J1940; J2270; J2405; J2543; J2704; J3010; J3370; J3480; J7030; J7040; J7120; P9047; Q9966

== ENCOUNTER 2023-02-24 17:47 | Emergency (ER) | payer OTHER, SELFPAY ==
[2023-02-24] VITALS (8 sets, daily range): BP systolic 118–157; BP diastolic 71–78; PULSE 73–78; RESP 16–18; TEMP 36.7; O2SAT 91–100
--- NOTE | ~2023-02-24 | XR_ITS ---
EXAMINATION: XR abdomen/kub 1V INDICATION: Hematuria TECHNIQUE: Supine views of the abdomen were obtained on 2 radiographs. COMPARISON: CT, 02/15/2023 FINDINGS: A left internal ureteral stent is in expected position. The previously described left urete ropelvic junction stone is now seen in the left kidney lower pole. No additional urolithiasis is iden tified. There is mild osteoarthritis of the hips. The bowel gas pattern is normal. IMPRESSION: 1. Left internal ureteral stent in expected position with previously described left ureteropelvic tammy ction stone in the left kidney lower pole. Reviewed, dictated and finalized at location F. IMPRESSION: 1. Left internal ureteral stent in expected position with previously described left ureteropelvic junction stone in the left kidney lower pole.
[2023-02-24 18:58] LABS: Appearance Urine Clear (Clear); Bilirubin Urine Negative (Negative); Blood Urine 2+ (Negative); Color Urine Yellow (Yellow); Glucose Urine UA Negative (Negative); Ketones Urine Negative (Negative); Leukocyte Esterase Ur Trace LEU/UL (Negative); Nitrate Urine Negative (Negative); Protein Urine Negative (Negative); Specific Grav Ur 1.003 (1.001-1.035); Urobilinogen Urine 0.2 mg/dL (<2.0); pH Urine 6.5 (5.0-9.0)
[2023-02-24 19:18] LABS: Add Urine Microscopic? YES; Bacteria Urine None Seen /hpf; Need Manual Microscopic Reviewed; Non Pathogenic Casts 0-2; RBC Urine 0-2 /hpf (0-2); Squamous Epithelial Cell Urine None seen /hpf (Few); WBC Urine 0-5 /hpf
--- NOTE | 2023-02-24 19:27 | ED.FEMALEGU ---
HPI - Female Genitourinary General Chief complaint: Urogenital-Female Stated complaint: hematuria Time Seen by Provider: 02/24/23 19:11 Source: patient Limitations: no limitations History of Present Illness HPI Narrative: Patient is a 62-year-old female presents to the emergency department complaining of hematuria. Patient states she was just discharged from the hospital after a ICU admission and a septic kidney stone for which she had a stent placed and is planned to follow-up with urology in a couple weeks. Patient notes the blood in the urine was first noticed at night and she had gross blood throughout the stream of urine and had another episode which when she talked to her doctor was told to come to the emergency department for further evaluation. Patient denies dysuria, urinary urgency. Patient admits to urinary frequency but admits to drinking a lot of water. Patient admits to some bilateral flank mild discomfort that is worse on the left than the right. Patient denies any recent injuries, use of blood thinners, fever, vomiting, diarrhea, melena, hematochezia, vaginal bleeding, lightheadedness, chest pain, shortness of breath. Patient denies any use of antibiotics at this time. Related Data Home Medications Medication Instructions Recorded Confirmed Daily Vitamin C Pack 1 tablet PO DAILY 02/16/23 02/16/23 Vitamin D3 1 tablet PO DAILY 02/16/23 02/16/23 amlodipine 5 mg tablet 5 mg PO DAILY 02/16/23 02/16/23 [id number]-[id number]-guqc 1 tablet PO DAILY 02/16/23 02/16/23 losartan 100 1 tablet PO DAILY 02/16/23 02/16/23 mg-hydrochlorothiazide 25 mg tablet progesterone micronized 100 mg 100 mg PO DAILY 02/16/23 02/16/23 capsule solifenacin 5 mg tablet 5 mg PO DAILY 02/16/23 02/16/23 Allergies Allergy/AdvReac Type Severity Reaction Status Date / Time No Known Allergies Allergy Verified 02/24/23 17:48 Review of Systems Review of Systems: A 10 system review of systems was completed on the patient and is negative except for what is stated in the HPI. Nursing and ancillary documentation was reviewed. [facility] Past Medical History Medical History (Updated 02/24/23 @ 21:07 by Siddhartha Deluna DO) Calculus of distal left ureter section wound complication Hypertension Kidney stone Sepsis Septic shock due to urinary tract infection Family History Family History Mother Hypertension COPD (chronic obstructive pulmonary disease) Father Hypertension Heart attack Sibling Hypertension Social History Social History Smoking packs per day: 0.25 Smoking cigarettes per day: 5.0 Years smoked: 8 Smoking pack-years: 2.00 Smoking status: Former smoker Alcohol intake: current Drinks per week: 1 Substance use: never Lack of Transportation: No Lack of Food: Never True Current Housing: I Have Housing Concerned About Future Housing: No Difficulty Paying Gas/Electric Bills: No Difficulty Paying for Meds: No Currently Unemployed: No Education: Associate Degree Difficulty w/ Childcare or Family Care: No Spiritual care concerns: No Comments At time of signature, I have reviewed and agree with nursing past medical, surgical, social and family history unless otherwise noted. Please see the nursing chart for further information. There is no relevant family history pertinent to the presenting complaint. Exam Narrative: CONST: No acute distress. Well nourished. HENMT: Head is normocephalic and atraumatic. Moist mucous membranes. No posterior oropharynx erythema. EYES: No conjunctival icterus, injection, or pallor. PERRL. NECK: No meningeal signs. RESP: Able to speak in full sentences. Normal respiratory effort. CTAB. CARDIO: Regular rate. Regular rhythm. 2+ DP and radial pulses bilaterally. GI: Nondistended. No tenderness to palpation. Soft. : No CVA tenderness
[2023-02-24 20:08] LABS: Basophils Absolute Auto 0.1 K/mm3 (0.0-0.1); Basophils Percent Auto 0.7 % (0.2-1.2); Eosinophils Absolute Auto 0.2 K/mm3 (0-0.3); Eosinophils Percent Auto 1.6 % (0-4.4); Hematocrit 39.3 % (37.0-47.0); Hemoglobin 12.6 g/dL (12.0-15.0); Immature Granulocyte Absolute 0.25 K/mm3 (0.00-0.031); Immature Granulocyte Percent A 2.3 % (0-0.5); Lymphocytes Absolute Auto 2.68 K/mm3 (0.9-3.2); Lymphocytes Percent Auto 24.5 % (18.3-44.2); Mean Corpuscular HGB Conc 32.1 g/dl (32-36); Mean Corpuscular Hemoglobin 26.6 pg (26-34); Mean Corpuscular Volume 82.9 fl (80-100); Mean Platelet Volume 10.5 fl (7.4-10.4); Monocytes Absolute Auto 0.7 K/mm3 (0.1-0.6); Neutrophils Absolute Auto 7.1 K/mm3 (1.3-6.7); Neutrophils Percent Auto 64.9 % (45.5-73.1); Platelet Count Result 242 k/mm3 (150-375); Red Blood Count 4.74 M/mm3 (4.2-5.4); Red Cell Distribution Width 16.4 % (11.5-14.5); White Blood Count 10.9 K/mm3 (4.5-10.0)
[2023-02-24 20:17] LABS: Creatine Kinase 43 U/L (30-135)
[2023-02-24] MEDS: ACETAMINOPHEN 500 MG TABLET 1000 MG PO (20:17)
[2023-02-24 20:19] LABS: Alanine Aminotransferase 109 U/L (6-35); Albumin Level 4.7 g/dL (3.5-5.1); Alkaline Phosphatase 134 U/L (38-126); Anion Gap 10 mmol/L (8-16); Aspartate Amino Transferase 34 U/L (14-36); Bilirubin,Total 0.8 mg/dL (0.2-1.3); Blood Urea Nitrogen 19 mg/dL (7-17); Calcium 10.4 mg/dL (8.4-10.2); Carbon Dioxide 24 mmol/L (22-30); Chloride 101 mmol/L (98-107); Estimated CRCL calculation 72 ml/min; Estimated Glomerular Filt Rate > 60; Glucose 96 mg/dL (65-110); INR 0.9; Potassium 3.9 mmol/L (3.4-5.0); Prothrombin Time 12.7 Seconds (11.1-14.7); Sodium 135 mmol/L (137-145)
[2023-02-24] MEDS: TAMSULOSIN HCL 0.4 MG CAPSULE PO (21:35)
== END 2023-02-24 21:47 | disposition home or self-care (01) ==
PROVIDERS: Preventive Medicine Aerospace Medicine; Emergency Provider Student in an Organized Health Care Education/Training Program; PCP Internal Medicine
DX: N20.0 Calculus of kidney (principal); R31.9 Hematuria, unspecified; I10 Essential (primary) hypertension; Z87.891 Personal history of nicotine dependence
CPT/HCPCS: 36415; 74018; 80053; 81001; 82550; 85025; 85610; 85730; 99283; A9270

== ENCOUNTER 2023-03-10 08:58 | Outpatient (CLI) | payer OTHER, SELFPAY ==
--- NOTE | 2023-03-10 09:12 | ECG_ITS ---
Measurements Intervals [place] Rate: 72 P: 52 SC: 171 QRS: 23 QRSD: 92 T: 3 QT: 374 QTc: 411 Interpretive Statements SINUS RHYTHM LOW QRS VOLTAGE IN PRECORDIAL LEADS BORDERLINE R WAVE PROGRESSION, ANTERIOR LEADS BORDERLINE ST-T WAVE ABNORMALITY- INFERIOR LEADS BORDERLINE ECG COMPARED TO ECG 02/15/2023 23:25:56 NO SIGNIFICANT CHANGES Electronically Signed On 03-10-2023 10:54:47 WEIGHT CONTROL LECTURER by Luis Lucas D.O.
[2023-03-10 09:37] LABS: Partial Thromboplastin Time 26.8 SEC (23.90-30.70); Prothrombin Time 10.6 Seconds (9.50-12.10)
== END 2023-03-10 08:59 | disposition home or self-care (01) ==
LOC: CHSLAB 09:00
PROVIDERS: PCP Internal Medicine; Visit Provider Urology
DX: Z01.818 Encounter for other preprocedural examination (principal); N20.0 Calculus of kidney; I10 Essential (primary) hypertension
CPT/HCPCS: 36415; 85610; 85730; 93005

== ENCOUNTER 2023-03-17 00:29 | Day surgery (SDC) | payer OTHER, SELFPAY ==
[2023-03-09 14:02] VITALS: BMI 37.0
--- NOTE | 2023-03-09 14:09 | PC.NURSE ---
Addendum entered by Cynthia Botello RN 03/15/23 08:53: PT CALLED, INQUIRING ABOUT TAKING AMLODIPINE AM OF SURGERY. STATES SHE TAKES MED AT HS. INSTRUCTED TO TAKE USUAL AT HS NIGHT BEFORE SURGERY. Original Note: Report to the Outpatient Waiting Room, entrance under the green pavilion located off [facility], at time 12:00 on date 03/17/23. Planned Procedure Time: 2:00. Time changes happen often and if your time is changed the preop area will call you the afternoon before. - You and your visitor will be asked to self-screen and do not enter if you have any COVID symptoms. - A mask is optional within the hospital at this time. Patients may have clear liquids (water, carbonated beverages, clear teas, apple juice) until 3 hours prior to surgery (11:00) with a maximum of 20 ounces. - No food from midnight until time of surgery Take the following medications with a SIP of water the morning of surgery: AMLODIPINE DO NOT STOP ANY OF YOUR OTHER PRESCRIPTION MEDICATIONS PRIOR TO SURGERY ?EXCEPT THE FOLLOWING Medications to discontinue per physician: VITAMINS/SUPPLEMENTS Date to take last dose: 03/13/23 Please no make-up, nail czech, hairspray, perfume, deodorant, or body powder the day of surgery. No jewelry (including any body piercings) or valuables the day of surgery, leave them at home. Please take a shower or bath the night before, or the morning of, surgery with an antibacterial soap. Wear comfortable, loose fitting clothing. - Jewelry must be removed prior to entering the operating room. Rings and piercings that are not removed may be cut off. - The hospital will not accept responsibility for valuables. - Please leave all valuables, including medications, at home the day of surgery. If you are going home after surgery, a licensed services delivery driver must drive you home. - NO public transportation without another adult if you receive anesthesia. - We recommend that an adult stay with you for 24 hours following discharge. - We also recommend that you do not drive, make important decision, drink alcoholic beverages, or take any drugs that were not prescribed by your health care provider for at least 24 hours after your discharge time. Follow any additional instructions given to you from your surgeon. If you or anyone in your household have experienced Covid symptoms in the past week, please notify your surgeon or the nurse liaison at the phone number below for possible testing. Telephone instructions given to PT - KEON SETH and asked if any additional questions and then verbalized understanding. Patient advised to call surgeon office or pre surgery nurse liaison [phone] if any additional questions.
[2023-03-17] VITALS (7 sets, daily range): BP systolic 141–153; BP diastolic 69–86; PULSE 68–84; RESP 12–16; TEMP 36.4–36.8; O2SAT 96–100
--- NOTE | ~2023-03-17 | XR_ITS ---
EXAMINATION: XR abdomen/kub 1V DATE: 03/17/2023 12:13 INDICATION: Kidney stone. TECHNIQUE: A supine view of the abdomen on 2 radiographs was obtained. COMPARISON: Abdomen radiographs 02/24/2023, CT abdomen and pelvis 02/15/2023 FINDINGS: There is a left internal ureteral stent in expected position. There are no dilated loops of bowel. There is a 4 mm stone in left kidney. IMPRESSION: 1. Left internal ureteral stent in expected position. 2. 4 mm stone in left kidney. Reviewed, dictated and finalized at location A. ER FITTER APPRENTICE
--- NOTE | 2023-03-17 06:41 | WPDHPUPDATE1 ---
History and Physical Update Update Date/Time: 03/17/23 06:41 History and Physical has been reviewed, including an updated exam of the patient. There are NO changes in the patient's condition. Risks, benefits, and alternatives have been discussed and questions answered. Patient agrees to proceed with procedure.
[2023-03-17] MEDS: LACTATED RINGERS 1,000 ML 30 ML IV CONT ×2 (12:30→14:15)
--- NOTE | 2023-03-17 12:40 | WPDANESEPPF ---
Anes - Initial Pre Proc Eval Procedure: Operation Date: 03/17/23 14:00 Proposed Procedures p Left Extracorporeal Shock Wave Lithotripsy, - Evan Spann MD s Cystoscopy with Left Stent Removal - Evan Spann MD Date/Time: 03/17/23 12:40 Surgeon: Evan Spann MD Pre Op Diagnosis: left renal stones Patient Data Age: 63 Gender: F Height: 1.63 m Weight: 98 kg Allergies Allergy/AdvReac Type Severity Reaction Status Date / Time No Known Allergies Allergy Verified 03/09/23 13:59 Home Medications Medication Instructions Recorded Confirmed Type Daily Vitamin C Pack 1 tablet PO DAILY 02/16/23 03/09/23 History Vitamin D3 1 tablet PO DAILY 02/16/23 03/09/23 History amlodipine 5 mg tablet 5 mg PO HS 02/16/23 03/15/23 History rcszmyc-iylfvussr-jccp 1 tablet PO DAILY 02/16/23 03/09/23 History losartan 100 1 tablet PO DAILY 02/16/23 03/09/23 History mg-hydrochlorothiazide 25 mg tablet progesterone micronized 100 mg 100 mg PO DAILY 02/16/23 03/09/23 History capsule solifenacin 5 mg tablet 5 mg PO DAILY 02/16/23 03/09/23 History estradiol 1 mg tablet 1 mg PO DAILY 03/09/23 03/09/23 History turmeric root extract 500 mg 500 mg PO DAILY 03/09/23 03/09/23 History capsule Patient hx anesthesia problems: none Family hx anesthesia problems: none Results Review: All pre-operative results and documents have been reviewed as part of the pre-operative evaluation. [facility] Past Medical History Medical History Calculus of distal left ureter section wound complication Hypertension Kidney stone Sepsis Septic shock due to urinary tract infection Surgical History Surgical History (Updated 03/17/23 @ 12:40 by Humphrey Valenzuela MD) Hx of cystoscopy Family History Family History Mother Hypertension COPD (chronic obstructive pulmonary disease) Father Hypertension Heart attack Sibling Hypertension Social History Social History Smoking packs per day: 0.25 Smoking cigarettes per day: 5.0 Years smoked: 8 Smoking pack-years: 2.00 Smoking status: Former smoker Tobacco type: cigarettes Smoking end date: 05/01/82 Additional smoking assessment comments: FORMER SOCIAL SMOKER Alcohol intake: current Drinks per week: 1 Alcohol use details: RARE Substance use: never Substance use type: does not use Lack of Transportation: No Lack of Food: Never True Current Housing: I Have Housing Concerned About Future Housing: No Difficulty Paying Gas/Electric Bills: No Difficulty Paying for Meds: No Currently Unemployed: No Education: Associate Degree Difficulty w/ Childcare or Family Care: No Living arrangements: with family Spiritual care concerns: No Anes - Eval Final PreProcedure Day of Procedure 03/17/23 12:40 Patient weight: obese Heart: regular rate and rhythm Lungs: clear to auscultation Airway: Mallampati scale class II Neurological: alert and oriented Last oral intake: >/= 8 hours ASA classification: II Anesthetic plan: proceed Anesthesia type and monitoring: general LMA and standard monitoring Results Review: All pre-operative results and documents have been reviewed as part of the pre-operative evaluation. Informed Consent: The patient's anesthetic plan and its attendant risks and benefits were discussed with the patient/family/POA. Questions were solicited and answers provided to the satisfaction of the patient/family/POA.
--- NOTE | 2023-03-17 12:45 | P.OP_ITS ---
Procedure Note - Detailed Date of Procedure 03/17/23 Pre-op Diagnosis Left renal stones Post-op Diagnosis Same Procedure Performed Cystoscopy, left ureteral stent removal, left ESWL Surgeon Evan Spann MD Anesthesia General Description of Procedure The patient was brought to the operative suite where she was placed in the frog- legged position on the Dornier lithotripter table. Flexible cystoscopy was undertaken with a 16F flexible cystoscopy. Her urethra and bladder neck were endoscopically normal. The bladder mucosa was normal and there was a single, orthotopic ureteral orifice bilaterally. The tip of the indwelling stent was grasped and was removed with ease. The patient was then repositioned in the supine position and the focal point of the lithotriptor was placed at a 4-5mm left mid-ureteral calculus. A total of 2500 shocks were delivered at a power setting of 4. There appeared to be good fragmentation of the stone. The patient tolerated the procedure well and was taken to the recovery room in good condition. Drains No Packing No Pathology None sent Complications No immediate complications Condition Stable
[2023-03-17] MEDS: ceFAZolin 2 GM/D5W 50 ML 2 GM/50 ML BAG IVPB (13:29)
[2023-03-17] MEDS: fentaNYL CITRATE INJ (*CRX) 100 MCG/2 ML VIAL 25 MCG IV PUSH ×2 (14:24→14:29)
== END 2023-03-17 15:59 | disposition home or self-care (01) ==
PROVIDERS: PCP Internal Medicine; Visit Provider Urology
PROC: (CPT 50590; principal; 2023-03-17 14:00)
PROC: (CPT 52310; 2023-03-17 14:00)
DX: N20.0 Calculus of kidney (principal); I10 Essential (primary) hypertension; Z87.891 Personal history of nicotine dependence; Z85.118 Personal history of other malignant neoplasm of bronchus and lung; Z82.49 Family history of ischemic heart disease and other diseases of the circulatory system; E66.9 Obesity, unspecified; Z68.34 Body mass index [BMI] 34.0-34.9, adult
CPT/HCPCS: 50590; 52310; 74018; J0690; J1100; J2250; J2405; J2704; J3010; J7030; J7120

== ENCOUNTER 2023-03-27 09:23 | Outpatient (CLI) | payer OTHER, SELFPAY ==
--- NOTE | ~2023-03-27 | XR_ITS ---
XR abdomen/kub 1V 03/27/2023 09:43 Indication: Preop. Left renal stone. Procedure: KUB Comparison: Comparison to multiple prior studies sequentially, with oldest reviewed study dated 03/01. Findings: Bowel gas pattern nonobstructive. There is a stone in the lower pole of the left kidney. No acute osseous abnormality. Lung bases unremarkable. Impression: 1: Left nephrolithiasis. Reviewed, dictated and finalized at location B. PLUG CUTTER Impression: 1: Left nephrolithiasis.
== END 2023-03-27 09:24 | disposition home or self-care (01) ==
PROVIDERS: PCP Internal Medicine; Visit Provider Urology
DX: N20.0 Calculus of kidney (principal)
CPT/HCPCS: 74018

== ENCOUNTER 2023-09-26 07:46 | Outpatient (CLI) | payer OTHER, SELFPAY ==
--- NOTE | ~2023-09-26 | MM_ITS ---
EXAMINATION: MM screening brandy BI w [place] HISTORY: Screening TECHNIQUE: Craniocaudal and mediolateral oblique 3-D tomosynthesis images were obtained and synthetic 2-D images were generated. CAD analysis was submitted and interpreted. COMPARISON: No prior mammogram is available for comparison at this institution. BREAST PARENCHYMAL COMPOSITION: Not dense: There are scattered areas of fibroglandular density. FINDINGS: There are no suspicious masses, calcifications or architectural distortion in the right eulogio ast to suggest malignancy. There is a small circumscribed mass in the lower inner quadrant of the lef t breast. IMPRESSION: 1. Small left breast mass, lower inner quadrant anteriorly. 2. Recommend comparison to previous outside mammograms. BI-RADS Category 0: Incomplete: Needs additional imaging evaluation. Reviewed, dictated and finalized at location B.
== END 2023-09-26 07:47 | disposition home or self-care (01) ==
LOC: CHSIMG 07:47
PROVIDERS: PCP Internal Medicine; Visit Provider Nurse Practitioner Obstetrics & Gynecology
DX: Z12.31 Encounter for screening mammogram for malignant neoplasm of breast (principal); R92.8 Other abnormal and inconclusive findings on diagnostic imaging of breast
CPT/HCPCS: 77063; 77067

== ENCOUNTER 2023-09-28 12:52 | Outpatient (CLI) | payer OTHER, SELFPAY ==
--- NOTE | ~2023-09-28 | XR_ITS ---
XR abdomen/kub 1V 09/28/2023 13:05 INDICATION: Right flank pain TECHNIQUE: KUB COMPARISON: 03/27/2023 FINDINGS: Bowel gas pattern is normal. There is no evidence of free air, mass, organomegaly, ascites or obstruction. No abnormal calculi are seen. The bones appear intact. IMPRESSION: 1: No acute abdominal abnormality identified. Reviewed, dictated and finalized at location B.
== END 2023-09-28 12:53 | disposition home or self-care (01) ==
LOC: ANHIMG 12:55
PROVIDERS: PCP Internal Medicine; Visit Provider Physician Assistant
DX: R10.9 Unspecified abdominal pain (principal)
CPT/HCPCS: 74018

== ENCOUNTER 2023-10-12 09:03 | Outpatient (CLI) | payer OTHER, SELFPAY ==
--- NOTE | ~2023-10-12 | MMUS_ITS ---
EXAMINATION: MM diagnostic brandy LT w [place], US breast LT limited HISTORY: Left breast mass TECHNIQUE: Additional Spot compression 3-D tomosynthesis images of the left breast were performed and synthetic 2-D images were generated. CAD analysis was submitted and interpreted. High resolution haddad ited left breast ultrasound was performed. COMPARISON: 09/18/2023, 06/10/2022, 06/08/2021 FINDINGS: MAMMOGRAPHIC FINDINGS: There are scattered curvilinear densities. Spot compression views demonstrate a persistent 6 mm circu mscribed ovoid mass in the subareolar left breast. This is mildly increased in size over time dating back to 03/20/2019. ULTRASOUND: At the 12:00 left subareolar region, there is a 7 x 3 x 3 mm small mass, wider than tall, with indete rminant sonographic appearance overall. This could reflect a mildly complex cyst. There is no posteri or shadowing. IMPRESSION: 7 x 3 x 3 mm masses o'clock left subareolar region, seen both mammographically and sonographically. This is minimally increased in size over time since 2019, therefore most likely benign. Recommend 6 m onth follow-up exam of the left breast (mammogram and ultrasound) to reassess). BI-RADS category 3, probably benign findings. Reviewed, dictated and finalized at location M. IMPRESSION: 7 x 3 x 3 mm masses o'clock left subareolar region, seen both mammographically and sonographically. This is minimally increased in size over time since 2019, therefore most likely benign. Recommend 6 month follow-up exam of the left eulogio ast (mammogram and ultrasound) to reassess). BI-RADS category 3, probably benign findings.
== END 2023-10-12 09:04 | disposition home or self-care (01) ==
PROVIDERS: PCP Internal Medicine; Visit Provider Nurse Practitioner Obstetrics & Gynecology
DX: R92.8 Other abnormal and inconclusive findings on diagnostic imaging of breast (principal)
CPT/HCPCS: 76642; 77061; 77065; G0279

== ENCOUNTER 2024-05-21 12:52 | Outpatient (CLI) | payer OTHER, SELFPAY ==
--- NOTE | ~2024-05-21 | MMUS_ITS ---
EXAMINATION: MM diagnostic brandy LT w [place], US breast LT limited HISTORY: Follow-up left breast mass TECHNIQUE: Additional 3-D tomosynthesis images of the left breast were performed and synthetic 2-D im ages were generated. CAD analysis was submitted and interpreted. High resolution Limited left breast ultrasound was performed. COMPARISON: Comparison to multiple prior studies sequentially, with oldest reviewed study dated 07/13. BREAST PARENCHYMAL COMPOSITION: Not dense: There are scattered areas of fibroglandular density. FINDINGS: MAMMOGRAPHIC FINDINGS: There is a small mass measuring 5 mm in the lower inner quadrant of the left breast, anterior third. There are no suspicious calcifications or architectural distortion. ULTRASOUND: Limited left breast ultrasound: In the subareolar location of the left breast there is an irregular s haped hypoechoic mass with some angular margins measuring 10 x 5 x 4 mm compared with 7 x 3 x 3 mm on prior examination. No other masses are seen. IMPRESSION: 1. Enlarging irregular shaped hypoechoic subareolar mass of the left breast at 12:00. This does not l ikely correspond to the mammographic finding. 2. Ultrasound-guided left breast biopsy recommended. BI-RADS category 4, suspicious findings. Reviewed, dictated and finalized at location A. ECTIVE THERAPY AIDE IMPRESSION: 1. Enlarging irregular shaped hypoechoic subareolar mass of the left breast at 12:00. This does not likely correspond to the mammographic finding. 2. Ultrasound-guided left breast biopsy recommended. BI-RADS category 4, suspicious findings.
== END 2024-05-21 12:53 | disposition home or self-care (01) ==
PROVIDERS: PCP Internal Medicine; Visit Provider Surgery
DX: R92.8 Other abnormal and inconclusive findings on diagnostic imaging of breast (principal); N63.25 Unspecified lump in the left breast, overlapping quadrants
CPT/HCPCS: 76642; 77061; 77065; G0279

== ENCOUNTER 2024-06-03 07:41 | Outpatient (CLI) | payer OTHER, SELFPAY ==
--- NOTE | ~2024-06-03 | MMUS_ITS ---
EXAMINATION: 1. US breast biopsy LT w image 2. MM post biopsy diagnostic LT DATE: 06/03/2024 08:52 INDICATION: Left breast mass at 12:00. TECHNIQUE: The procedure including the risks, benefits, and alternatives was discussed with the patie nt. Risks discussed included bleeding and infection. The patient understood the risks and agreed to p roceed. The skin of the left breast was prepped and draped in usual sterile fashion. Anesthetic was administered with 1% lidocaine at the skin and 1% lidocaine with epinephrine in the deeper tissue. A 10-gauge vacuum-assisted core biopsy needle was then used to obtain 4 core biopsy specimens under co ntinuous sonographic guidance. A Mammotome HydroMARK open coil marker was placed under sonographic gu idance The entry site was cleaned and dressed. There were no immediate complications. A two-view mammogram was obtained to document marker placement. FINDINGS: Ultrasound images demonstrate the needle in a 9 mm mass in the left breast at 12:00. Breast composition: There are scattered areas of fibroglandular density. Mammogram: There is a marker in the left breast at 12:00. IMPRESSION: 1. Successful ultrasound-guided vacuum-assisted biopsy of a 9 mm mass in the left breast at 12:00 wit h post procedure mammogram for marker placement. Reviewed, dictated and finalized at location A. ROOM PRESS OPERATOR IMPRESSION: 1. Successful ultrasound-guided vacuum-assisted biopsy of a 9 mm mass in the le ft breast at 12:00 with post procedure mammogram for marker placement.
--- OUTSIDE RECORDS SUMMARY | 2024-06-03 07:52 | XMS_ITS | Data Portability ---
Author Organization [facility] Address [address] [place] [address] [place] [address] Care Team Providers Care Program Rep Name Role Phone JESSIKA VILLALOBOS Primary Care Provider [phone] Assessment Encounter Date Assessment Date Assessment LastModified by Organization Details LastModified Time 11/07/2019 11/07/2019 Annual gynecological exam performed. Patient will come back in a year unless there are new symptoms. Not available 11/07/2019 11:35:59 12/24/2020 12/24/2020 Annual gynecological exam performed. Patient will come back in a year unless there are new symptoms. Not available 12/24/2020 11:59:40 06/03/2022 06/03/2022 Annual gynecological exam performed. Patient will come back in a year unless there are new symptoms. [email or web address] Not available 06/03/2022 15:25:46 06/08/2023 06/08/2023 Annual gynecological exam performed. Patient will come back in a year unless there are new symptoms. Not available 06/08/2023 18:05:38 Plan of Treatment Reminders Order Date Submit Date Provider Last Modified By Organization Details Last Modified Time Details Appointments None recorded. Lab urinalysis, dipstick 2019 020 [email or web address] [facility], [address], [place], [address], 0 21:40:13 Referral urogynecolo gist referral 2022 023 BRENDAN Koch MD, [address], [address], [place], [address], 3 19:27:48 Procedures None recorded. Surgeries None recorded. Imaging MAMMO, screening, bilateral 2022 023 BRENDAN Not available 3 18:04:34 MAMMO, screening, bilateral 2023 024 [facility], [address], [address], [place], [address], 4 17:31:03 Medication Orders None recorded. Patient TargetsNo targets recorded. Patient InstructionsNo instructions recorded. Reason for Referral Urogynecologist Referral for Female stress incontinence Referring Physician: Glenys Bundy, EDGER LINER, Encounter Date: 06/03/2022 Results Created Date Observation Date Name Description Value Unit Range Abnormal Flag Note LastModifiedBy Organization Detail LastModifiedTime 11/07/19 20 11/09/2019 cultu re, urine specimen source Urine - Void Not [facility] ([facility]) [address], [place], [address], 11/09/2019 02:28:12 11/07/19 20 11/09/2019 cultu re, urine culture, urine See Below No growt h Not Available [facility] [address], [place], [address], 11/09/2019 02:28:12 11/07/19 20 11/11/2019 pap, LB Pap test thin prep Negati ve for Intrae pithel ial Lesion or Malign grace normal ACCES SHANTAL #: [id number] Sourc e: Cervi matias/E ndoce rvica l LMP: 05/01 Date Taken : 11/06 Speci men Type: ThinP rep Vial Date Repor varinder: 2019 Clini matias Data: Cytot ech: Joan vaz CT( CP) Date Repor varinder: 2019 Speci men Adequ acy: Satis facto ry for evalu ation Endoc ervic al/tr ansfo rmati on zone compo nent prese nt Gener al Categ oriza tion: NEGAT SUNITA FOR INTRA EPITH ELIAL LESIO N OR MALIG SAAD This speci men has been santino zed by the ThinP rep Imagi ng Syste m, an inter activ e compu ter syste m which tena ts [facility] of ThinP rep Pap Test slide s. Follo wing imagi ng, the slide was revie wed by a Cytot echno logis t and/o r Patho logis t. End of t Techn ical servi margo provi ded by [facility] [email or web address], [address] [place] [address] Delgado Butler MD, Labor atory Dire tor. Case revie wed and diagn osis rende red at [facility] [email or web address], [facility], [address] [place] [address] Delgado Butler MD, Labor atorFreenom Dire tor. CONFI DENTI AL Not Available [facility]) [address], [place], [address], 11/11/2019 07:23:37 11/07/19 20 11/07/2019 urina lysis , dipst ick Leukocytes Trace Not Available Marielle uriostegui [address], [place], [address], 11/07/2019 11:40:29 11/07/19 20 11/07/2019 urina lysis , dipst ick Leukocytes Trace Not Available Marielle uriostegui [address], [place], [address], 11/07/2019 11:39:36 12/25/19 21 12/24/2020 IMAGE GUIDE D PAP AND HPV REGAR DLESS image guided Pap, HPV regardless of Pap result SEE RESULT S BELOW CASE REPOR T: Cytol ogy Gynec ologi matias Repor t Case: [id number] Autho rafael perea Provi mich: Mercedez Hernandez MD Colle cted: 12/24 1310 Order ing Locat ion: [place] Path[facility] Recei sherie: 12/25 0011 First Scree n: Bonnie Mccormick ay, CT Rescr een: Disha Dixon , CT Speci men: Scree dereck Pap - Image d, Cervi x STATE MENT OF ADEQU ACY: Satis facto ry for evalu ation Trans forma tion zone compo nent absen t The absen ce of an endoc ervic al compo nent was confi rmed by an addit ional lenin ner. FINAL DIAGN OSIS: Negat sunita for Intra epith elial Lesio paulette or Gerber perez (NIL) Elect darienmaria g yu anu d by Disha Dixon , CT on 2020 at 7:54 AM ----- ----- ----- ----- ----- ----- ----- ----- ----- ----- ----- ----- ----- ----- ----- ----- ----- ---- HPV RESUL TS: HPV mRNA E6/E7 : No HPV mRNA Detec varinder NOTE: This high risk HPV mRNA assay detec ts fourt een high- risk HPV types (16, 18, 31, 33, 35, 39, 45, 51, 52, 56, 58, 59, 66, 68) witho ut diffe renti ation . COMME NT: Note: This speci men was revie wed by a Cytot echno logis t and/o r Patho logis t (as indic ated in this repor t) after evalu ation using the Thinp rep Imagi ng Syste m. CLINI MATIAS INFOR MATIO N: Menst rual Statu s: LMP (if appli cable ): 010 Clini matias Histo ry/Pr eviou s Pap: Type of Neopl esperanza (if appli cable ): Signi fican t Clini matias Findi ngs: Other Histo ry: Hormo stephanie (if appli cable ): PAP EDUCA ALEX L NOTE: The Pap Test is a scree dereck test with an inher ent false negat sunita rate. Liqui d-bas e sampl ing may decre ase, but will not elimi mateo, false negat sunita resul ts. A negat sunita resul t does not precl ude the prese nce and/o r devel opmen t of disea se, since the prese nce of abnor mal cells in the sampl e depen ds on the locat ion of the lesio n and sampl ing techn ique. Eemly nued regul ar scree dereck is the best metho d of cance r preve ntion . If repor varinder cytol ogic findi ng do not corre late with physi matias and/o r histo rical findi ngs, furth er inves tigat ion is recom selene d, as clini kristen warra nted. Not Available [facility] (Lab) [address] [place], [address], 12/27/2020 08:57:16 06/08/19 22 06/08/2021 MAMMO , scree dereck, bilat eral No observ ation record ed. [facility]) [address] [place], [address], 06/10/2021 13:46:29 06/10/19 23 06/10/2022 MAMMO , scree dereck, bilat eral No observ ation record ed. [email or web address] [facility] [address] [place], [address], 06/08/2023 18:36:34 09/26/19 24 09/26/2023 MAMMO , scree dereck, bilat eral No observ ation record ed. [facility] [address] [place], [address], 10/05/2023 14:49:22 10/03/19 24 09/26/2023 MAMMO , scree dereck, bilat eral No observ ation record ed. [facility] [address] [place], [address], 10/11/2023 09:30:05 10/05/19 24 09/26/2023 MAMMO , scree dereck, bilat eral No observ ation record ed. [facility] [address] [place], [address], 10/11/2023 09:31:12 10/12/19 24 10/12/2023 MAMMO , scree dereck, digit al, bilat eral No observ ation record ed. [email or web address] [facility] [address] [place], [address], 11/01/2023 11:49:09 Result Notes None recorded. 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 1 12:01:[address] Concept Completed 201712/24/2020 Encntr for general adult medical exam w/o abnormal findings ;Recorde d Elsewher e: No Locat ion: [facility] S ource: EHR Gm/Svp [employer] kunal: N Michelleti ce ID: [id number] Pascual lable Time: 03:30:[address] [facility] 1 12:01:56 Radiolog ic finding [id number] Completed 201812/24/2020 Oth abn and inconclu sive findings on dx imaging of breast;R ecorded Elsewher e: No Locat ion: [facility] S ource: EHR Gm/[employer] kunal: N Practi ce ID: [id number] Pascual lable Time: 03:55:[address] [facility] 1 12:01:50 Screenin g for malignan t neoplasm of rectum Completed 201712/24/2020 Encounte r for screenin g for malignan t neoplasm of rectum;R ecorded Elsewher e: No Locat ion: [facility] S ource: EHR Gm/[employer] kunal: N Michelleti ce ID: [id number] Pascual lable Time: 03:30:[address] [facility] 1 12:01:53 Problem Notes None recorded. Procedures Surgical History Date Name Laterality Status Provider Name and Address Organization Details Recorded Time 3 Date of Last Mammogram completed Tiffanie Rodriges [facility] 06/08/2023 17:57:53 1 Date of Last Pap Smear completed Tiffanie Rodriges [facility] 06/08/2023 17:57:38 delivery completed WENDY Pickering- [address], [place], [address], [facility] 06/03/2022 15:36:18 Imaging Results Imaging Date Name Status LastModified by Organiz ation Details LastModified Time 06/08/2021 MAMMO, screening, bilateral completed [facility] [address] [place], [address], 06/10/2021 13:46:29 06/10/2022 MAMMO, screening, bilateral completed [email or web address] [place], [address], 06/08/2023 18:36:34 09/26/2023 MAMMO, screening, bilateral completed [facility] [address] [place], [address], 10/05/2023 14:49:22 09/26/2023 MAMMO, screening, bilateral completed [address] [place], [address], 10/11/2023 09:30:05 09/26/2023 MAMMO, screening, bilateral completed [address] [place] [address] [address] [place], [address], 10/11/2023 09:31:12 10/12/2023 MAMMO, screening, digital, bilateral completed [email or web address] [place] [address] [address] [place], [address], 11/01/2023 11:49:09 Procedure Notes None recorded. Medical Equipment None Reported. Allergies No known drug allergies Medications Name Sig Start Date Stop Date Status Note LastModified by Organization Details LastModified Time binaxnow cov kit home ronna 06/03 completed Not Available Not Available Not Available amoxicill in 500 mg capsule TAKE 1 CAPSULE BY MOUTH EVERY 8 HOURS UNTIL GONE 06/03 completed Not Available Not Available Not Available oxybutyni n chloride ER 10 mg tablet,ex tended release 24 hr TAKE 1 TABLET BY MOUTH ONCE DAILY active Not Available Not Available No t Available ibuprofen 800 mg tablet TAKE 1 TABLET BY MOUTH EVERY 8 HOURS NEEDED FOR PAIN active Not Available Not Available No t Available losartan 100 mg-hydroc hlorothia zide 25 mg tablet TAKE 1 TABLET BY MOUTH ONCE DAILY active Not Available Not Available No t Available estradiol 1 mg tablet TAKE ONE TABLET BY MOUTH DAILY 2023 active Not Available Not Available Not Avai lable lisinopri l 10 mg tablet TAKE ONE TABLET BY MOUTH IN THE MORNING AND TAKE TWO TABLETS BY MOUTH AT BEDTIME 06/08 completed Not Available Not Available Not Available lisinopri l 30 mg tablet take 1 tablet by oral route every day 06/03 completed Prescrib ed Elsewher e: Yes [facility] odify By: shakeel Echols ncounter DateTime : 04/02/20 18 03:30:00 PM Not Available Not Available Not Available zinc 50 mg tablet 06/08 completed Prescrib ed Elsewher e: Yes [facility]oca [facility] odify By: teresa Bello r DateTime : 10/18/19 19 01:30:00 PM Not Available Not Available Not Available hydrochlo rothiazid e 25 mg tablet TAKE 1 TABLET BY MOUTH ONCE DAILY IN THE MORNING 06/08 completed Not Available Not Available Not Available albuterol sulfate HFA 90 mcg/actua tion aerosol inhaler INHALE 1 PUFF BY MOUTH EVERY 4-6 HOURS NEEDED 06/05 completed Not Available Not Available Not Available magnesium 30 mg tablet 06/08 completed Prescrib ed Elsewher e: Yes Loca [facility]ion: [facility] odify By: teresa Gallegoste r DateTime : 10/18/19 01:30:00 PM Not Available Not Available Not Available progester one micronize d 100 mg capsule TAKE ONE CAPSULE BY MOUTH DAILY 2023 active Not Available Not Available Not Avai lable amoxicill in 875 mg-potass ium clavulana te 125 mg tablet TAKE 1 TABLET BY MOUTH EVERY 12 HOURS 06/08 completed Not Available Not Available Not Available Vitamins and Minerals tablet active Prescrib ed Elsewher e: Yes Loca tion: [facility] odify By: teresa Gallegoste r DateTime : 07/18/19 02:00:00 PM Not Available Not Available Not Available Calcium-5 00 500 mg (as calcium carbonate 1,250 mg) tablet take 1 tablet by oral route every day 06/08 completed Prescrib dorothea Escobedo e: Yes Loca tion: o[facility]rgito [facility]ols [facility] M odify By: teresa Bello r DateTime : 10/18/19 01:30:00 PM Not Available Not Available Not Available solifenac in 5 mg tablet active Not Available Not Available Not Available magnesium 12/24 completed Not Available Not Available Not Available calcium 12/24 completed Not Available Not Available Not Available progester one 12/24 completed Not Available Not Available Not Available zinc 12/24 completed Not Available Not Available Not Available hydrochlo rothiazid e 06/05 completed Not Available Not Available Not Available lisinopri l 12/24 completed Not Available Not Available Not Available Centrum Silver 06/08 completed Not Available Not Available Not Available Vitamin D3 active Not Available Not Available Not Available Hitesh 06/03 completed Not Available Not Available Not Available Myrbetriq 25 mg tablet,ex tended release TAKE 1 TABLET BY MOUTH ONCE DAILY 06/08 completed Not Available Not Available Not Available BinaxNOW COVID-19 Ag Self Test kit Use as Directed on the Package 06/03 completed Not Available Not Available Not Available turmeric- ging-oliv e-oreg-ca pry 06/08 completed Not Available Not Available Not Available Vitals Date Recorded Body height Body mass index (BMI) Body weight Systolic blood pressure Diastolic blood pressure Systolic blood pressure Diastolic blood pressure Provider Name and Address Organization Details Last Updated DateTime 1 163.83 cm 34.8 kg/m2 44887.0 3 g 165 mm[Hg] 111 mm[Hg] 173 mm[Hg] 107 mm[Hg] [facility] 1 12:01:18 Date Recorded Body height Body mass index (BMI) Body weight Systolic blood pressure Diastolic blood pressure Provider Name and Address Organization Details Last Updated DateTime 06/05/2021 154.94 cm 40.2 kg/m2 79789.17 g 174 mm[Hg] 96 mm[Hg] [facility] 2 11:37:00 Date Recorded Body height Body mass index (BMI) Body weight Systolic blood pressure Diastolic blood pressure Provider Name and Address Organization Details Last Updated DateTime 11/07/2019 163.83 cm 32.1 kg/m2 84433.55 g 167 mm[Hg] 94 mm[Hg] Rose Kwan [facility] 11:36:29 Date Recorded Body height Body mass index (BMI) Body weight Provider Name and Address Organization Details Last Updated DateTime 06/03/2022 154.94 cm 41.3 kg/m2 [address]31.[address] [facility] 06/03/2022 15:26:00 Date Recorded Systolic blood pressure Diastolic blood pressure Provider Name and Address Organization Details Last Updated DateTime 06/03/2022 126 mm[Hg] 82 mm[Hg] Glenys Bundy, [facility]- [address], [place], [address], [facility] 06/03/2022 16:13:29 Date Recorded Body height Body mass index (BMI) Body weight Systolic blood pressure Diastolic blood pressure Provider Name and Address Organization Details Last Updated DateTime 06/08/2023 154.94 cm 39.5 kg/m2 04433.81 g 158 mm[Hg] 93 mm[Hg] Tiffanie Rodriges [facility] 18:06:01 Social History Question Answer Notes LastModified by Organizat ion Details LastModified Time Tobacco Smoking Status Never Smoker Rose Kwan vincenzo, [facility] 11/07/2019 11:39:08 Are You Blind Or Do You Have Difficulty Seeing? No Information n ot available 06/03/2022 In The 14 Days Before Symptom Onset, Have You Had Close Contact With A Laboratory-confirm ed COVID-19 While That Case Was Ill? No Information n ot available 06/08/2023 In The 14 Days Before Symptom Onset, Have You Had Close Contact With A Person Who Is Under Investigation For COVID-19 While That Person Was Ill? No Information not available 06/08/2023 Have You Been To An Area Known To Be High Risk For COVID-19? No Information not available 06/08/2023 Are You Deaf Or Do You Have Serious Difficulty Hearing? No Information not available 06/03/2022 What Type Of Diet Are You Following? REGULAR Information n ot available 06/03/2022 Sex: Unknown Functional Status Question Answer Note LastModified by Organizat ion Details LastModified Time Do you have difficulty walking or climbing stairs? No Information not available 06/03/2022 Are you able to walk? YESWOREST Information not available 06/03/2022 Are you able to care for yourself? Yes Information not available 06/03/2022 Do you have difficulty dressing or bathing? No Information not available 06/03/2022 What is your exercise level? None Information not available 06/03/2022 Mental Status None recorded. Family History Relationship Description Onset Age of this Age Resolved Age Notes LastModified by Organization Details LastModified Time Mother Asthma Not available 11/07/2019 14:39:37 Mother Malignant tumor of lung [email or web address] Not available 2020 12:04:05 Father Heart disease [email or web address] Not available 2019 14:39:50 Father Hypertensive disorder [email or web address] Not available 2019 14:40:16 Sister Hypertensive disorder [email or web address] Not available 2019 14:40:16 Brother Hypertensive disorder [email or web address] Not available 2019 14:40:16 Medical History Condition Response Allergies (Food, seasonal, environmental ) N Other N Breast Cancer N Drug/Latex Allergies/Reactions N Blood Transfusion N Lung Disease N Dermatologic Disorders N Defects or Inherited Disease N Breast Problem N Gestational Diabetes N Hematologic disorders N Anesthesia Complications N History of STI N Deep Vein Thrombosis N Polycystic ovary syndrome N Anxiety Disorder N Autoimmune disease N Arthritis N Infertility N Polyps N Acid Reflux (GERD) N History of abnormal pap N Cancer N Stroke N Varicosities N Neurologic/Epilepsy N Endometriosis N High Cholesterol N Headaches N Fibromyalgia N Kidney Disease N Heart Problems N Kidney or Bladder Problems Y Thyroid Problems N GI Problems N Eating Disorder N Anemia N Art (IVF or FET) N Psychiatric Illness N Ovarian Cancer N Diabetes N Pulmonary (TB, Asthma) N Hepatitis/Liver Disease N No Past Medical History N Eczema N Urinary Tract Infection N Abuse/Domestic Violence N Asthma N Trauma/Violence N Depression/ depression N Heart Disease N Pre-Eclampsia N Hypertension Y Osteoporosis N Thrombophilias N Gynecological History Statement/Question Response Abnormal Pap N Date of Last Mammogram 06/10/2022 STIs/STDs N HPV Vaccine N Current Control Method Menopause Date of Last Colonoscopy Sexually Active? Yes Menses Monthly N Age of first menstrual cycle 12 Date of Last Pap Smear 12/24/2020 Sexual Problems? N LMP Unknown Obstetrics History GPAL:G 4 P 4 0 0 4 Type Value Full Term 4 Living 4 Total 4 Past Encounters Encounter ID Performer Location Encounter Start Date Encounter Closed Date Diagnosis/Indication Diagnosis SNOMED-CT Code Diagnosis ICD10 Code Diagnosis Note [id number] Den Hernandez MD [facility] [address] [address] 11/07/2019 11:15:39 11/07/2019 13:24:51 Gynecologic examination [id number] Z01.419 This patient is here for her annual exam. A thorough history was taken. A physical exam was performed. Age appropriat e routine health screening was ordered, performed, and discussed. Recommende d testing was ordered. She was asked to follow up in one year. She will be informed of any test results. Mammogram - [done ] Colonoscop y - [to do ] Bone Density - [na ] Cholestero l - [ done] Pap - today [id number] Den Hernandez MD [facility] [address] [address] 12/24/2020 11:49:05 12/24/2020 14:05:07 Gynecologic examination [id number] Z01.419 This patient is here for her annual exam. A thorough history was taken. A physical exam was performed. Age appropriat e routine health screening was ordered, performed, and discussed. Recommende d testing was ordered. She was asked to follow up in one year. She will be informed of any test results. reiterated , emphasized risk of combined hormone replacemen t therapy. We discussed risk of breast cancer, stroke, heart attack. Mammogram - [ordered ] Colonoscop y - [cologuard ] Bone Density - [na ] Cholestero l - [done ] Pap - today [id number] Den Hernandez MD [facility] [address] [address] 06/05/2021 10:53:42 06/08/2021 16:13:56 Body mass index 30+ - obesity 626861200 Z68.41 this patient is a 61-year-ol d female with obesity and a BMI of 40. She has some possibly related joint pain, borderline elevated cholestero l, possible sleep apnea. We spent an hour together. We talked about her diet, we talked about her mood, we talked about her health in detail. Talked about her weight gain history. We talked about our program. We talked about body compositio n and basal metabolic Testing. We agreed to complete her evaluation with sleep study and an EKG. She will see a dietitian also. We will reconvene and this consider a treatment plan. We would likely involve behavior and exercise changes. Female str ess incontinence [id number] N39.3 Hyperlipidemia 23956379 E78.5 Sleep apnea 49062757 G47 .30 Pain of ri ght knee joint 1221699972 42009 M25.561 [id number] Glenys Bundy , [facility] [address] [address] 06/03/2022 15:07:54 06/06/2022 16:20:59 Gynecologic examination 21872045 Z01.419 Take Calcium with Vitamin D 12-1500mg daily. Do monthly self breast exams. It is advised to get annual flu shot in the fall and she could obtain at [facility] or [facility] take care clinic. If you haven't received the Tdap vaccine in the last 10 years you should obtain one as well. Have mammogram yearly, bone density every 2-3 years and colonoscop y every 5-10 years depending on findings and history. Engage in daily exercise of low impact aerobic exercise 45-60 minutes 4-5 times weekly. Avoid tobacco and illicit drugs as well as using moderation with alcohol intake less than 1-2 8 oz beverages daily. This lifestyle behavior pattern will lead to less health conditions and longer life span. If BMI greater than 25 weight watchers or dietary consult advised. Questions have been answered. Patient appears to understand instructio ns, but if you have any further questions call or respond to this email Pap/hpv due age 64yo unless otherwise indicatedS TD Screen declinedGe netic Screen discussedC olon Screen 1Dexa Screen PCPRoutine Labs ordered PCPMammo orderedNut rition: On GoLo program Screening mammography [id number]31 Female str ess incontinence [id number] N39.3 Wanted the referral she forgot last visit for JUNE consult. [id number] Glenys Bundy [facility] [address] [address] 06/08/2023 17:54:21 06/08/2023 18:38:43 Gynecologic examination [id number] Z01.419 Take Calcium with Vitamin D 12-1500mg daily. Do monthly self breast exams. It is advised to get annual flu shot in the fall and she could obtain at [facility] or [facility] care clinic. If you haven't received the Tdap vaccine in the last 10 years you should obtain one as well. Have mammogram yearly, bone density every 2-3 years and colonoscop y every 5-10 years depending on findings and history. Engage in daily exercise of low impact aerobic exercise 45-60 minutes 4-5 times weekly. Avoid tobacco and illicit drugs as well as using moderation with alcohol intake less than 1-2 8 oz beverages daily. This lifestyle behavior pattern will lead to less health conditions and longer life span. If BMI greater than 25 weight watchers or dietary consult advised. Questions have been answered. Patient appears to understand instructio ns, but if you have any further questions call or respond to this email Pap/hpv sentSTD Screen declinedGe netic Screen discussedC olon Screen 1Dexa Screen PCPRoutine Labs ordered PCPMammo ordered Screening mammography 24 [id number] Z12.31 Health Concerns Section Related Observation LastModified by Organization Detai ls LastModified Time None Recorded Concern Status LastModified by Organization Details LastModified Time None Recorded Advance Directives Directive None Recorded Payers Encounter Date Sequence Insurance Name Policy Number Policy Schulz Covered Member ID Schulz Member ID Guarantor Name 11/07/2019 1 [employer] - [facility] - CHOICE PLUS (PPO) Sara Gore [id number] Enriqueta Gore 12/24/2020 1 [employer] [facility] - CHOICE PLUS (PPO) Sara Gore [id number] Enriqueta Gore 06/05/2021 1 [employer] [facility] - CHOICE PLUS (PPO) Sara Gore [id number] Enriqueta Gore 06/03/2022 1 [facility]: (PPO) [id number] Enriqueta Gore [id number] Enriqueta Gore 06/08/2023 1 [facility] [id number] Sara Gore [id number] Enriqueta Gore Notes Date Note Type Note Provider Name and Address Organization Details Recorded Time 0 text/html Annual GYNReported bypatient.History:no gynecologic complaints Menstrual cycle:post menopausal Urinary symptoms:No hematuria; No incontinence Vulva:No genital lesion Vagina:Normal vaginal discharge Breast:No breast pain; No breast lump; No nipple discharge Sexual complaints:No sexual complaints; No pain during intercourse; Normal libido Menopausal Symptoms:No menopausal symptoms Psychological symptoms:No depression; No anxiety Preventive measures:Encourage self breast examination; Encourage regular exercise; Mammogram performed within the past year; to do cologuard Den Hernandez MD [address], [place], [address], [facility] 11/07/2019 11:53:21 1 text/html Annual GYNReported bypatient.History:no gynecologic complaints Urinary symptoms:No hematuria Vulva:No genital lesion Vagina:Normal vaginal discharge Breast:No breast pain; No breast lump; No nipple discharge Sexual complaints:No sexual complaints; No pain during intercourse; Normal libido Menopausal Symptoms:No menopausal symptoms; Normal vaginal lubrication Psychological symptoms:No depression; No anxiety Preventive measures:Encourage self breast examination; Encourage regular exercise Den Hernandez MD [address], [place], [address], [facility] 12/24/2020 12:39:13 2 text/html Beer - Obesity AssesmentReported bypatient.Diagnosis Summary:age at start of weight gain adulthood; desired/goal weight: 40 lb loss; recent weight gain (slow weight gain over the past 10 years come periods of weight loss and regain.); weight 1 year ago: (185); wait 5 years ago: (170) Associated Symptoms:fatigue; shortness of breath Previous Weight Loss Attemptsweight gain/loss: 40 lbs; medically or professionally supervised program: weight loss amount: (no); [facility] (no); previous weight loss successful: yes, what worked, you liked? (tops); previous weight loss successful: no, what failed, didn'y like? (lack of persistence) Major Life Eventsmajor life stressors (none reported) Weight Loss MedicationsHx - weight loss medication (no, no history) historyweight gain in (significant weight was gain during ) Diet History:current diet: (none); past diets: (tops, keto, weight watchers); diet program(s) used: (weight watchers) Weight Management Behaviors:poor control, eats beyond her comfort, no sugar sweetened beverages Anthropometric Measurements:BMI classification: obese; BMI 40 Sleep:some fatigue, snoring, it is recommended a sleep study, short neck, large neck diameter. Type:No mood concernsNotes:patient reports knee pain, possible osteo that may be associated with her weight. Den Hernandez MD [address], [place], [address], [facility] 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 d bypatient.Menopausal Symptoms:no menopausal symptoms; normal vaginal lubrication Vaginal Bleeding:history of menopause having occurred; no history of post menopausal bleeding Urinary Symptoms:no hematuria; no nocturia; no urinary frequency;stress incontinence Vulva:no genital lesion; no vulvar atrophy Vagina:normal vaginal discharge; no vaginal atrophy Breast:no breast lump; no nipple discharge; no breast pain Sexual Complaints:no sexual complaints Psychological Symptoms:no depression; no anxiety Preventive Measures:encourage regular mammograms starting age 40; encourage self breast examination; encourage regular exercise; encourage no tobacco use; needs to schedule mammogram; history of recent colonoscopy; needs to schedule bone density 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 Post-MenopausalReporte d bypatient.Menopausal Symptoms:no menopausal symptoms; normal vaginal lubrication Vaginal Bleeding:history of menopause having occurred; no history of post menopausal bleeding Urinary Symptoms:no hematuria; no incontinence; no nocturia; no urinary frequency Vulva:no genital lesion; no vulvar atrophy Vagina:normal vaginal discharge; no vaginal atrophy Breast:no breast lump; no nipple discharge; no breast pain Sexual Complaints:no sexual complaints Psychological Symptoms:no depression; no anxiety Preventive Measures:encourage regular mammograms starting age 40; encourage self breast examination; encourage regular exercise; encourage no tobacco use; needs to schedule mammogram; history of recent colonoscopy WENDY Pickering- [address], [place], [address], [facility] 06/08/2023 18:37:49 OBGyn Episode Ob Episode Information Episode Created Date Number of Fetuses Patient Bloodtype Patient rh Status Prepregnancy Weight lbs Domestic Partner Domestic Partner Phone Father Name Collating Machine Operator Status 11/07/19 20 1 CLOSED Fetus Data First Name Last Name Admitted to NICU Weight (g) Sex Living Outcome Pediatric Complications Fetus ID Race Codes Race Delivery Type 3089.86 8704 M Full Term 2808 Primary Cheo Calculation Initial Cheo Date Initial Exam Date Initial Exam Provider Initial Ultrasound Date Last Menstrual Period Date Ultra Sound Weeks Gestation 0 Eighteen To Twenty Week Cheo Update Ultra Sound Date Fundal Height At Umbil Quickening Date Ultra Sound Latest Weeks Gestation Final Cheo Confirmed By Final Cheo Confirmed Date Final Cheo Date Ultra Sound Latest Days Gestation 0 0 Menstrual History Last Menstrual Date Menses Monthly On Bcp Conception Prior Menses Frequency Hcg Plus Date Menarche Onset Age Delivery Information Delivery Date Delivery Type Labor Anesthesia Weeks Gestation Incision Type Labor Labor Length Hrs Delivered By Post Complications Tubal Sterilization Discharge Date Comments 6 Jun Discharge Information Feeding Method Contraceptive Method Maternal HG B and HCT Levels Ob Episode Information Episode Created Date Number of Fetuses Patient Bloodtype Patient rh Status Prepregnancy Weight lbs Domestic Partner Domestic Partner Phone Father Name Collating Machine Operator Status 11/07/19 20 1 CLOSED Fetus Data First Name Last Name Admitted to NICU Weight (g) Sex Living Outcome Pediatric Complications Fetus ID Race Codes Race Delivery Type 3997.05 2704 M Full Term 2809 Primary Cheo Calculation Initial Cheo Date Initial Exam Date Initial Exam Provider Initial Ultrasound Date Last Menstrual Period Date Ultra Sound Weeks Gestation 0 Eighteen To Twenty Week Cheo Update Ultra Sound Date Fundal Height At Umbil Quickening Date Ultra Sound Latest Weeks Gestation Final Cheo Confirmed By Final Cheo Confirmed Date Final Cheo Date Ultra Sound Latest Days Gestation 0 0 Menstrual History Last Menstrual Date Menses Monthly On Bcp Conception Prior Menses Frequency Hcg Plus Date Menarche Onset Age Delivery Information Delivery Date Delivery Type Labor Anesthesia Weeks Gestation Incision Type Labor Labor Length Hrs Delivered By Post Complications Tubal Sterilization Discharge Date Comments 9 Carmelo Discharge Information Feeding Method Contraceptive Method Maternal HG B and HCT Levels Ob Episode Information Episode Created Date Number of Fetuses Patient Bloodtype Patient rh Status Prepregnancy Weight lbs Domestic Partner Domestic Partner Phone Father Name Collating Machine Operator Status 11/07/19 20 1 CLOSED Fetus Data First Name Last Name Admitted to NICU Weight (g) Sex Living Outcome Pediatric Complications Fetus ID Race Codes Race Delivery Type 3061.74 6 M Full Term 2807 Vaginal Delivery Cheo Calculation Initial Cheo Date Initial Exam Date Initial Exam Provider Initial Ultrasound Date Last Menstrual Period Date Ultra Sound Weeks Gestation 0 Eighteen To Twenty Week Cheo Update Ultra Sound Date Fundal Height At Umbil Quickening Date Ultra Sound Latest Weeks Gestation Final Cheo Confirmed By Final Cheo Confirmed Date Final Cheo Date Ultra Sound Latest Days Gestation 0 0 Menstrual History Last Menstrual Date Menses Monthly On Bcp Conception Prior Menses Frequency Hcg Plus Date Menarche Onset Age Delivery Information Delivery Date Delivery Type Labor Anesthesia Weeks Gestation Incision Type Labor Labor Length Hrs Delivered By Post Complications Tubal Sterilization Discharge Date Comments 7 Delgado Discharge Information Feeding Method Contraceptive Method Maternal HG B and HCT Levels Ob Episode Information Episode Created Date Number of Fetuses Patient Bloodtype Patient rh Status Prepregnancy Weight lbs Domestic Partner Domestic Partner Phone Father Name Collating Machine Operator Status 11/07/19 20 1 CLOSED Fetus Data First Name Last Name Admitted to NICU Weight (g) Sex Living Outcome Pediatric Complications Fetus ID Race Codes Race Delivery Type 2948.34 8 M Full Term 2810 Primary Cheo Calculation Initial Cheo Date Initial Exam Date Initial Exam Provider Initial Ultrasound Date Last Menstrual Period Date Ultra Sound Weeks Gestation 0 Eighteen To Twenty Week Cheo Update Ultra Sound Date Fundal Height At Umbil Quickening Date Ultra Sound Latest Weeks Gestation Final Cheo Confirmed By Final Cheo Confirmed Date Final Cheo Date Ultra Sound Latest Days Gestation 0 0 Menstrual History Last Menstrual Date Menses Monthly On Bcp Conception Prior Menses Frequency Hcg Plus Date Menarche Onset Age Delivery Information Delivery Date Delivery Type Labor Anesthesia Weeks Gestation Incision Type Labor Labor Length Hrs Delivered By Post Complications Tubal Sterilization Discharge Date Comments 4 Jesse Discharge Information Feeding Method Contraceptive Method Maternal HG B and HCT Levels
== END 2024-06-03 07:42 | disposition home or self-care (01) ==
LOC: ANHIMG 07:46
PROVIDERS: PCP Internal Medicine; Visit Provider Surgery
DX: N63.25 Unspecified lump in the left breast, overlapping quadrants (principal); R92.8 Other abnormal and inconclusive findings on diagnostic imaging of breast
CPT/HCPCS: 19083; 77065; 88305; A4648

== ENCOUNTER 2024-06-29 10:09 | Outpatient (CLI) | payer OTHER, SELFPAY | END 2024-06-29 10:10 | disposition home or self-care (01) | PROVIDERS: Visit Provider Physician Assistant Medical | DX: Z87.442 Personal history of urinary calculi (principal) | CPT/HCPCS: 74018; 76770 ==

== ENCOUNTER 2024-11-26 11:03 | Outpatient (CLI) | payer OTHER, SELFPAY ==
--- NOTE | ~2024-11-26 | MMUS_ITS ---
EXAMINATION: MM diagnostic brandy BI w [place], US breast LT limited HISTORY: Previous benign biopsy TECHNIQUE: Additional 3-D tomosynthesis images of the breasts were performed and synthetic 2-D images were generated. CAD analysis was submitted and interpreted. High resolution Limited left breast ultr asound was performed. COMPARISON: Comparison to multiple prior studies sequentially, with oldest reviewed study dated 11/2021. BREAST PARENCHYMAL COMPOSITION: Not dense: There are scattered areas of fibroglandular density. FINDINGS: MAMMOGRAPHIC FINDINGS: There are no suspicious masses, calcifications or architectural distortion in the right breast to sug gest malignancy. Stable small mass in the lower inner quadrant of the left breast, anterior third. Th ere is a tissue marker in the upper outer quadrant of the left breast, anterior third. ULTRASOUND: Limited left breast ultrasound: At 12:00 in the subareolar location there is a hydromarker from previ ous biopsy. Also at 12:00 in the subareolar location there is a small oval hypoechoic 5 mm mass with echogenic hilum, likely benign intramammary lymph node. IMPRESSION: 1. Probable benign left breast mass at 12:00 in the subareolar location measuring 5 mm. 2. Recommend 6 month follow-up Limited left breast ultrasound BI-RADS category 3, probably benign findings. Reviewed, dictated and finalized at location B. IMPRESSION: 1. Probable benign left breast mass at 12:00 in the subareolar location measuri ng 5 mm. 2. Recommend 6 month follow-up Limited left breast ultrasound BI-RADS category 3, probably benign findings.
--- OUTSIDE RECORDS SUMMARY | 2024-11-26 11:06 | XMS_ITS | Data Portability ---
Author Organization [facility] Address [address] [place] [address] [place] [address] Care Team Providers Care Certified Surgical First Assistant Name Role Phone JESSIKA VILLALOBOS Primary Care Provider [phone] Assessment Encounter Date Assessment Date Assessment LastModified by Organization Details LastModified Time 06/08/2023 06/08/2023 Annual gynecological exam performed. Patient will come back in a year unless there are new symptoms. Not available 06/08/2023 18:05:38 09/02/2024 09/02/2024 The patient and I disscussed the various causes of abnormal uterine bleeding, including polyps, fibroids, hyperplasia, atypia, anovulation, etc. We reviewed the typical evaluation with pelvic US and possible endometrial biopsy. Briefly discussed the options available for treatment (depending on the results of evaluation). We spent more than 30 minutes face to face. [email or web address] Not available 09/02/2024 17:35:45 10/02/2024 10/02/2024 Annual gynecological exam performed. Patient will come back in a year unless there are new symptoms. Not available 10/02/2024 12:39:38 Plan of Treatment Reminders Order Date Submit Date Provider Last Modified By Organization Details Last Modified Time Details Appointments None recorded. Lab None recorded. Referral None recorded. Procedures None recorded. Surgeries None recorded. Imaging DEXA, axial skeleton + vertebral fracture assessment 2024 025 BRENDAN [facility], [address], [place], [address], 04:02:06 US, pelvis 2024 025 [email or web address] [facility], [address], [place], [address], 5 22:02:45 US, transvagina l 2024 025 [email or web address] [facility], [address], [place], [address], 5 22:02:45 US, pelvis, complete 2024 025 [email or web address] [facility], [address], [place], [address], 5 11:22:17 MAMMO, screening, bilateral 2023 024 [facility], [address], [place], [address], 4 17:31:03 Medication Orders None recorded. Patient TargetsNo targets recorded. Patient InstructionsNo instructions recorded. Reason for Referral None Reported. Results Created Date Observation Date Name Description Value Unit Range Abnormal Flag Note LastModifiedBy Organization Detail LastModifiedTime 06/09/19 24 06/09/2023 IMAGE GUIDE D PAP AND HPV REGAR DLESS image guided Pap, HPV regardless of Pap result SEE RESULT S BELOW CASE REPOR T: Cytol ogy Gynec ologi matias Repor t Case: [id number] Autho rafael perea Provi mich: Galo Blevins Colle cted: 06/09 1024 NOTE TAKER Order ing Locat ion: [place] Patho log[facility] Recei sherie: 06/10 0031 First Scree n: DeLuc a, Amairani, CT Rescr een: Strut z, Willi am, CT Speci men: Scree dereck Pap - Image d, Cervi x STATE MENT OF ADEQU ACY: Satis facto ry for evalu ation Trans forma tion zone compo nent absen t The absen ce of an endoc ervic al compo nent was confi rmed by an addit ional scree ner. FINAL DIAGN OSIS: Negat hannah for Intra epith elial Lesio n or Gerber perez (NIL) . Funga l organ isms morph ologi kristen consi stent with Jemima da spp. Elect darienmaria g yu anu d by Strut z, Willi am, CT on 2023 at 6:54 AM ----- ----- ----- ----- ----- ----- [...] ut diffe renti ation . COMME NT: This speci men was revie wed by a Cytot echno logis t and/o r Patho logis t (as indic ated in this repor t) after evalu ation using the Thinp rep Imagi ng Syste m. CLINI MATIAS INFOR MATIO N: Menst rual Statu s: LMP (if appli cable ): Clini matias Histo ry/Pr eviou s Pap: Type of Neopl esperanza (if appli cable ): Signi fican t Clini matias Findi ngs: Other Histo ry: Hormo stephanie (if appli cable ): PAP EDUCA ALEX L NOTE: The Pap Test is a scree dereck test with an inher ent false negat hannah rate. Liqui d-bas ed sampl ing may decre ase, but will not elimi mateo, false negat hannah resul ts. A negat hannah resul t does not precl ude the prese nce and/o r devel opmen t of disea se, since the prese nce of abnor mal cells in the sampl e depen ds on the locat ion of the lesria n and sampl ing techn ique. Emely nued regul ar scree dereck is the best metho d of cance r preve ntion . If repor varinder cytol ogic findi ng do not corre late with physi matias and/o r histo rical findi ngs, furth er inves tigat ion is recom selene d, as clini kristen angulo nted. Not Available [facility] (Lab) [address], [place], [address], 06/15/2023 07:59:41 09/28/1909/27/2024 SURGI MATIAS PATHO LOGY surgical pathology SEE RESULT S BELOW CASE REPOR T: Surgi matias Patho logy Repor t Case: Autho shivampaulette eliazar Provi mich: Mercedez Hernandez MD Colle cted: 09/27 1613 Order ing Locat ion: [place] [facility] [place] Recei sherie: 09/28 0401 Patho logis t: Ramiro Perez MD Speci men: Jaymie etmary m, EMB ----- ----- ----- ----- ----- ----- ----- ----- ----- ----- ----- ----- ----- ----- ----- ----- ----- ---- FINAL DIAGN OSIS: Endom etriu m, biops y: -Supe rfici al strip s of inact hannah endom etriu m. -No evide nce of hyper plasi a or gerber perez . Elect radha dutton by Ramiro Perez MD on 025 at 0617 CDT ----- ----- ----- ----- ----- ----- ----- ----- ----- ----- ----- ----- ----- ----- ----- ----- ----- ---- CLINI MATIAS INFOR MATIO N: Abnor mal uteri ne bleed ing MICRO SCOPI C DESCR IPTIO N: A micro scopi c exami natio n was perfo rmed. A porti on of the testi ng proce ss was perfo rmed at [facility] rn Medic ine Labor atori es site NMDP1 12. Digit al imagi ng was used in the diagn ostic asses sment of this case. GROSS DESCR IPTIO N: A. Endom etriu m. The speci men is label ed with the patie nt's name, demog raphi cs and EMB. Recei sherie in forma lenin is a 2.0 x 1.1 x 0.[address] of trans lucen t mucus and minut e possi ble tissu e. The entir e speci men is submi tted in one casse tte. Gross ed by Lucas araujo Not Available [facility] (Lab) [address] [place], [address], 10/01/2024 07:22:16 09/26/19 24 09/26/2023 MAMMO lenin, bilat eral No observ ation record ed. [email or web address] [place], [address], 10/05/2023 14:49:22 10/03/19 24 09/26/2023 MAMMO lenin, bilat eral No observ ation record ed. [email or web address] [place], [address], 10/11/2023 09:30:05 10/05/19 24 09/26/2023 lenin SUAREZ, bilat eral No observ ation record ed. [email or web address] [place], [address], 10/11/2023 09:31:12 10/12/19 24 10/12/2023 MAMMO , scree dereck, digit al, bilat eral No observ ation record ed. [email or web address] [facility] [address] [facility], [place], [address], 11/01/2023 11:49:09 09/07/19 25 05/21/2024 MAMMO , scree dereck, digit al, bilat eral No observ ation record ed. [email or web address] [place] [address] [address], [place], [address], 09/09/2024 10:49:56 09/11/19 25 09/10/2024 US, pelvi s No observ ation record ed. [email or web address] [facility] [address], [place], [address], 09/10/2024 16:04:46 09/11/19 25 09/10/2024 US, trans vagin al No observ ation record ed. [email or web address] [facility] [address], [place], [address], 09/10/2024 16:04:56 09/11/19 25 09/10/2024 US, pelvi s No observ ation record ed. [email or web address] [address], [place], [address], 09/12/2024 10:07:41 Result Notes None recorded. 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 12:01:[address] Concept Completed 201712/24/2020 Encntr for general adult medical exam w/o abnormal findings ;Recorde d Elsewher e: No Locat ion: [facility] N Michelleti ce ID: 0001 Pascual lable Time: 03:30:00 PM Rose Kwan [facility] 1 12:01:56 Screenin g for malignan t neoplasm of rectum Completed 201712/24/2020 Encounte r for screenin g for malignan t neoplasm of rectum;R ecorded Elsewher e: No Locat ion: [facility] kun[facility]: N Michelleti ce ID: 0001 Pascual lable Time: 03:30:00 PM Rose [facility] 1 12:01:53 Menopaus e present [id number] Active 2018 Symptoms such as flushing , sleeples sness, headache , lack of concentr ation, associat ed with natural (age-rel ated) menopaus e;Record ed Elsewher e: No Locat ion: [facility] S ource: [facility] kunal: N Michelleti ce ID: 0001 Pascual lable Time: 02:00:00 PM Not Available [facility] 0 21:26:26 Evaluati on finding [id number] Completed 201812/24/2020 Oth abn and inconclu sive findings on dx imaging of breast;R ecorded Elsewher e: No Locat ion: [facility] S ource: EHR Upper Extremity Surgeon kunal: N Practi ce ID: 0001 Pascual lable Time: 03:55:13 PM Rose [facility] 1 12:01:50 Problem Notes None recorded. Procedures Surgical History Date Name Laterality Status Provider Name and Address Organization Details Recorded Time 09/28/19 25 Endometrial Biopsy completed Den Hernandez MD [address], [place], [address], [facility] 09/27/2024 15:08:12 09/28/19 25 endometrial biopsy completed [facility] 09/27/2024 14:42:31 05/21/19 25 Date of Last Mammogram completed Lachelle Baptiste [facility] 10/02/2024 12:33:24 06/09/19 24 Date of Last Pap Smear completed [facility] 09/27/2024 14:41:19 03/31/19 96 Caesarean Section completed [facility] 09/27/2024 14:43:52 11/29/18 94 Caesarean Section completed [facility] 09/27/2024 14:43:42 03/31/19 89 delivery completed [facility] 09/27/2024 14:43:29 Imaging Results None recorded. Procedure Notes None recorded. Medical Equipment None Reported. Allergies No known drug allergies Medications Name Sig Start Date Stop Date Status Note LastModified by Organization Details LastModified Time binaxnow cov kit home ronna 06/03 completed Not Available Not Available Not Available celecoxib 200 mg capsule Take 1 capsule every day by oral route. 10/02 completed Not Available Not Available Not Available amoxicill in 500 mg capsule TAKE 1 CAPSULE BY MOUTH EVERY 8 HOURS UNTIL GONE 06/03 completed Not Available Not Available Not Available oxybutyni n chloride ER 10 mg tablet,ex tended release 24 hr TAKE 1 TABLET BY MOUTH ONCE DAILY 09/02 completed Not Available Not Available Not Available ibuprofen 800 mg tablet TAKE 1 TABLET BY MOUTH EVERY 8 HOURS NEEDED FOR PAIN 09/02 completed Not Available Not Available Not Available amlodipin e 5 mg tablet Take 1 tablet every day by oral route. active Not Available Not Available No t Available losartan 100 mg-hydroc hlorothia zide 25 mg tablet TAKE 1 TABLET BY MOUTH ONCE DAILY active Not Available Not Available No t Available estradiol 1 mg tablet TAKE ONE TABLET BY MOUTH DAILY (PATIENT NEEDS TO SCHEDULE D APPOINTM ENT) 09/02 completed Not Available Not Available Not Available lisinopri l 10 mg tablet TAKE ONE TABLET BY MOUTH IN THE MORNING AND TAKE TWO TABLETS BY MOUTH AT BEDTIME 06/08 completed Not Available Not Available Not Available lisinopri l 30 mg tablet take 1 tablet by oral route every day 06/03 completed Prescrib ed Elsewher e: Yes Loca tion: Jorgito fuller [facility] odify By: shakeel [address] ncounter DateTime : 04/02/20 03:30:00 PM Not Available Not Available Not Available zinc 50 mg tablet 06/08 completed Prescrib ed Elsewher e: Yes Loca tion: Jorgito fuller [facility] odify By: teresa Bello r DateTime : [...] ed Elsewher e: Yes Loca tion: Jorgito fuller [facility] odify By: teresa Encounte r DateTime : 10/18/19 01:30:00 PM Not [...] Available Not Available Vitamins and Minerals tablet 09/02 completed Prescrib ed Elsewher e: Yes Loca tion: Jorgito fuller [facility] odify By: teresa Gallegoste r DateTime : 07/18/19 02:00:00 PM Not Available Not Available Not Available Calcium-5 00 500 mg (as calcium carbonate 1,250 mg) tablet take 1 tablet by oral route every day 06/08 completed Prescrib ed Elsewher e: Yes Loca tion: Paulinemaegan [facility] odify By: [email or web address] Encounte r DateTime : 10/18/19 01:30:00 PM Not Available Not Available Not Available solifenac in 5 mg tablet 09/02 completed Not Available Not Available Not Available solifenac in 10 mg tablet Take 1 tablet every day by oral route. active Not Available Not Available No t Available magnesium 12/24 completed Not Available Not [...] Available Not Available Not Available Vitamin D3 09/02 completed Not Available Not Available Not Available Hitesh [...] completed Not Available Not Available Not Available aspirin 81 mg capsule Take 1 capsule every other day active Not Available Not Available No t Available Vitals Date Recorded Body height Body mass index (BMI) Body weight Systolic And Diastolic Provider Name and Address Organization Details Last Updated DateTime 06/08/2023 154.94 cm 39.5 kg/m2 62022.81 g 158/93 mm[Hg] Tiffanie Rodriges [facility] 06/08/2023 18:06:01 Date Recorded Body height Body mass index (BMI) Body weight Systolic And Diastolic Provider Name and Address Organization Details Last Updated DateTime 09/02/2024 154.94 cm 42.1 kg/m2 551868.38 g 154/88 mm[Hg] Lachelle Baptiste [facility] 09/02/2024 17:10:36 Date Recorded Body height Body mass index (BMI) Body weight Systolic And Diastolic Provider Name and Address Organization Details Last Updated DateTime 09/27/2024 154.94 cm 41.6 kg/m2 53025.32 g 165/93 mm[Hg] Tiffanie Rodriges [facility] 09/27/2024 14:38:56 Date Recorded Body height Body mass index (BMI) Body weight Systolic And Diastolic Provider Name and Address Organization Details Last Updated DateTime 10/02/2024 154.94 cm 41.4 kg/m2 42267.45 g 150/89 mm[Hg] Lachelle Baptiste [facility] 10/02/2024 12:39:54 Social History Question Answer Notes LastModified by Organizat ion Details LastModified Time Tobacco Smoking Status Never Smoker Rose Kwan [email or web address], [facility] 11/07/2019 11:39:08 Do You Have An Advance Directive? No Information n ot available 09/27/2024 How Many Years Have You Consumed Alcohol? 40 Information not available 09/27/2024 Are You Blind Or Do You Have Difficulty Seeing? No Information n ot available 06/03/2022 What Is Your Level Of Caffeine Consumption? Moderate Information not available 09/27/2024 How Much Tobacco Do You Chew? None Information not available 09/27/2024 In The 14 Days Before Symptom Onset, [...] Following? REGULAR Information n ot available 06/03/2022 What Is The Highest Grade Or Level Of School You Have Completed Or The Highest Degree You Have Received? [id number] [email or web address] Information not available 10/02/2024 Are There Any Guns Present In Your Home? No Information not available 09/27/2024 Do You Use Protection During Sex? No Information not available 09/27/2024 Do You Use Your Seat Belt Or Car Seat Routinely? Yes Information not available 09/27/2024 Do You Have Smoke And Carbon Monoxide Detectors In Your Home? Yes Information not available 09/27/2024 How Much Tobacco Do You Smoke? No Information not available 09/27/2024 Do You Use Sunscreen Routinely? Yes Information not available 09/27/2024 Have You Used IV Drugs? Yes [email or web address] Information not available 10/02/2024 Do You Have Difficulty Walking Or Climbing Stairs? No Information not available 06/03/2022 Sex: Unknown Functional Status Question Answer Note LastModified by Organizat ion Details LastModified Time Do you use any illicit or recreational drugs? No Information not available 09/27/2024 What is your level of alcohol consumption? Occasional Information not available 09/27/2024 Are you able to walk? YESWOREST Information not available 06/03/2022 Are you able to care for yourself independently? 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 No Information not available 06/03/2022 What is your exercise level? None Information not available 06/03/2022 Mental Status Question Answer Note LastModified by Organization D etails LastModified Time Do you feel stressed (tense, restless, nervous, or anxious, or unable to sleep at night)? [id number] Information not available 09/27/2024 Family History Relationship Description Onset Age of this Age Resolved Age Notes LastModified by Organization Details LastModified Time Mother Asthma [email or web address] Not available 11/07/2019 14:39:37 Mother Malignant neoplasm of lung [email or web address] Not available 07/2024 12:29:55 Father Heart disease [email or web address] Not available 2019 14:39:50 Father Hypertensive disorder [email or web address] Not available 2019 14:40:16 Sister Hypertensive disorder [email or web address] Not available 2019 14:40:16 Brother Hypertensive disorder [email or web address] Not available 2019 14:40:16 Medical History Condition Response Allergies (Food, seasonal, environmental ) N Other N Breast Cancer N Drug/Latex Allergies/Reactions N Blood Transfusion N Dermatologic Disorders N Lung Disease N Defects or Inherited Disease N Breast Problem N Gestational Diabetes N Hematologic disorders N Anesthesia Complications N History of STI N Deep Vein Thrombosis N Polycystic ovary syndrome N Anxiety Disorder N Autoimmune disease N Arthritis N Infertility N Polyps N Acid Reflux (GERD) N History of abnormal pap N Cancer N Stroke N Varicosities N Neurologic/Epilepsy N Endometriosis N High Cholesterol Y Headaches N Fibromyalgia N Kidney Disease N [...] Abnormal Pap N Date of Last Mammogram 05/21/2024 STIs/STDs N HPV Vaccine N Current Control Method Menopause Are cycles usually normal Y Date of Last Colonoscopy Sexually Active? Yes Menses Monthly N Age of first menstrual cycle 12 Date of Last Pap Smear 06/09/2023 Sexual Problems? N LMP Unknown Obstetrics History GPAL:G 4 P 4 0 0 4 Type Value Full Term 4 Living 4 Total 4 Past Encounters Encounter ID Performer Location Encounter Start Date Encounter Closed Date Diagnosis/Indication Diagnosis SNOMED-CT Code Diagnosis ICD10 Code Diagnosis Note [id number] Den Hernandez MD [facility] [address] [address] 11/07/2019 11:15:39 11/07/2019 13:24:51 Gynecologic examination 14969338 Z01.419 This patient is here for her [...] l - [ done] Pap - today [id number] Den Hernandez MD [facility] [address] [address] 12/24/2020 11:49:05 12/24/2020 14:05:07 Gynecologic examination 67623131 Z01.419 This patient is here for her [...] l - [done ] Pap - today [id number] Den Hernandez MD [facility] [address] [address] 06/05/2021 10:53:42 06/08/2021 16:13:56 Body mass index 30+ - obesity 265517205 Z68.41 this patient is a 61-year-ol d [...] and exercise changes. Female str ess incontinence 29239986 N39.3 Hyperlipidemia 32719165 E78.5 Sleep apnea 98274501 G47 .30 Pain of ri ght knee joint 1818779273 09103 M25.561 [id number] Glenys Bundy [facility] [address] [address] 06/03/2022 15:07:54 06/06/2022 16:20:59 Gynecologic examination 60547676 Z01.419 Take Calcium with Vitamin D 12-1500mg daily. Do monthly self breast exams. It is advised to get annual flu shot in the fall and she could obtain at [facility] or [facility]. If you haven't received the Tdap vaccine [...] rition: On [employer] program Screening mammography 24 324231 Z12.31 Female str ess incontinence 60753263 N39.3 Wanted the referral she forgot last visit for JUNE consult. [id number] Glenys Bundy [facility] [address],[place] [address] 06/08/2023 17:54:21 06/08/2023 18:38:43 Gynecologic examination 40404808 Z01.419 Take Calcium with Vitamin D 12-1500mg daily. Do monthly self breast exams. It is advised to get annual flu shot in the fall and she could obtain at [facility] or [facility]. If you haven't received the Tdap vaccine [...] Screen declinedGe netic Screen discussedC olon Screen exa Screen PCPRoutine Labs ordered PCPMammo ordered Screening mammography 24 596190 Z12.31 [id number] Den Hernandez MD [facility] [address],[place] [address] 09/02/2024 16:59:19 09/02/2024 17:42:45 Abnormal uterine bleeding 0076900049 9100 N93.9 Discussed possible causes of abnormal bleeding, including polyps, fibroids, thyroid dysfunctio n, cervical dysplasia, endometria l hyperplasi a or malignancy , and atrophy.Re commended stopping estradiol 1 mg tablets given her age and risk factors.De cisions to continue systemic HT > a decade past menopause (or past age 60yo) requires balancing R/B's; & individual ized needs. Discussed that patient may keep taking the progestero ne 100 mg tablets to help her sleep.Pelv ic ultrasound ordered. Patient to schedule. Will call patient with results.In structed patient to call office if any more vaginal bleeding occurs.Gretta blackburn verbalizes understand ing of plan of care.Patie nt to RTO for WWE/pap smear. [id number] Den Hernandez MD [facility] [address] [address] 09/10/2024 15:25:25 09/10/2024 16:12:30 Abnormal uterine bleeding 8137951574 9100 N93.9 [id number] Den Hernandez MD [facility] [address] [address] 09/27/2024 14:14:31 09/27/2024 15:12:32 Abnormal uterine bleeding 4819069773 9100 N93.9 Biopsy was performed. She tolerated it well. To discontinu e HRT and observe. [id number] Den Hernandez MD [facility] [address] [address] 10/02/2024 12:29:27 10/02/2024 13:27:55 Well woman health examination 025810909 Z01.419 Annual gynecologi matias exam performed. Patient will come back in a year unless there are new symptoms. Suggest Calcium with Vitamin D if not eating in diet. Patient advised to get annual flu shot. Recommend yearly physicals and perform monthly breast exams. Genetic testing is available for patients with family history of cancer. Engage in safe sexual practices, use condoms. Encouraged to have daily exercise. Avoid tobacco and illicit drugs, moderation of alcohol. If BMI greater than 25 dietary consult advised. If you have any questions please call or email. mammogram- sees breast specialist (Dr. Gutierrez) for left breast mass (biopsy negative, marker placed); due in October 2024 for repeat mammogram colon cancer screening - Due (cologuard WNL in 2021); cologuard ordered DEXA scan- due at age 65 y/o; order given Pap smear- UTD (2023 - WN), will repeat per ASCCP guidelines laboratory evaluation - PCP STI testing - declined Screening for osteoporosis 018278357 Z13.820 Postmenopa usal bleeding 06459119 N95.0 Discussed that patient's EMB from 09/27/24 was negative for malignancy .Patient denies any vaginal bleeding since stopping the estradiol 1 mg tablets on 09/02/24. Patient reports that she refilled her progestero ne, but states that she wants to discontinu e those as well.Instr ucted patient to reports any future vaginal bleeding as further evaluation is indicated. Patient verbalized understand ing. Health Concerns Section Related Observation LastModified by Organization Detai ls LastModified Time None Recorded Concern Status LastModified by Organization Details LastModified Time None Recorded Advance Directives Directive N: Payers Insurance Date Sequence Insurance Name Policy Number Policy Schulz Covered Member ID Schulz Member ID Guarantor Name 10/01/2024 1 [facility] [id number] Sara Gore [id number] Enriqueta Gore 09/02/2024 1 [employer] [facility] ([facility]) Sara Bao [id number] Enriqueta Bao 09/02/2024 1 [place] ([facility]) [id number] Enriqueta Bao [id number] Enriqueta Gore OBGyn Episode Ob Episode Information Episode Created Date Number of Fetuses Patient Bloodtype Patient rh Status Prepregnancy Weight lbs Domestic Partner Domestic Partner Phone Father Name Production Assistant Status 11/07/19 20 1 CLOSED Fetus Data [...] Domestic Partner Domestic Partner Phone Father Name Production Assistant Status 11/07/19 1 CLOSED Fetus Data First Name Last [...] Domestic Partner Domestic Partner Phone Father Name Production Assistant Status 11/07/19 20 1 CLOSED Fetus Data [...] Domestic Partner Domestic Partner Phone Father Name Production Assistant Status 11/07/19 20 1 CLOSED Fetus Data [...]
--- OUTSIDE RECORDS SUMMARY | 2024-11-26 11:06 | XMS_ITS | Patient Health Record ---
Author Organization [facility] Address [address] [place], [place] [address] Care Team Providers Care Production Supv Name Role Phone MARTINEZ BECKWITH Unavailable [phone] MaribelVipinCharles Unavailable Unavailable Allergies No Known Allergies Reason For Referral No Information Medications Medication SIG (Take, Route, Fr equency, Duration) Notes Start Date End Date Status Celecoxib 200 MG 1 capsule with food Orally Once a day; Duration: 30 days Active Celecoxib 200 MG 1 capsule with food Orally Once a day; Duration: 30 days One pack Active Immunizations Vaccine Route Administration Date Status Comme nts Influenza, high dose seasonal Unknown 07/04/2024 Refuse d Pneumococcal conjugate PCV 13 Unknown 07/04/2024 Refuse d Vital Signs Height-cm 162.56 cm 08/29/2024 Weight-kg 90.72 kg 08/29/2024 Height 64.00 in 08/29/2024 Weight 200 lbs 08/29/2024 BMI 34.33 kg/m2 08/29/2024 Encounters Encounter Location Date Provider Diagnosis [address] [id number] 06/06/2024 MARTINEZ SNOOK Osteophyte, left foot M25.775 ; Hallux valgus (acquired), right foot M20.11 ; Hallux valgus (acquired), left foot M20.12 and Peroneal tendinitis, right leg M76.[address] [id number] 07/04/2024 MARTINEZ SNOOK Osteophyte, left foot M25.775 ; Hallux valgus (acquired), right foot M20.11 ; Hallux valgus (acquired), left foot M20.12 and Peroneal tendinitis, right leg M76.[address] [id number] 08/01/2024 MARTINEZ SNOOK Hallux valgus (acquired), right foot M20.11 ; Osteophyte, left foot M25.775 ; Hallux valgus (acquired), left foot M20.12 and Peroneal tendinitis, right leg M76.[address] [id number] 08/29/2024 MARTINEZ SNOOK Osteophyte, left foot M25.775 ; Ingrowing nail L60.0 ; Hallux valgus (acquired), right foot M20.11 ; Hallux valgus (acquired), left foot M20.12 and Peroneal tendinitis, right leg M76.71 [facility] [address] [id number] 08/07/2024 MARTINEZJAZ CERVANTESPHYLLISLiang Assessments Encounter Date Diagnosis (ICD Code) Assessment Notes Treatment Notes Treatment Clinical Notes Section Notes 06/06/2024 Hallux valgus (acquired), right foot (ICD-10 - M20.11) Bunion: Discussed various treatments with the patient regarding hallux abducto valgus deformity. Discussed conservative care consisting of padding, wider shoes, anti-inflammatorie s, and orthotics. Discussed surgical treatment options and answered all questions about the intra-operative and post-operative treatment course. 06/06/2024 Osteophyte, 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 07/04/2024 Hallux valgus (acquired), right foot (ICD-10 - M20.11) Bunion: Discussed various treatments with the patient regarding hallux abducto valgus deformity. Discussed conservative care consisting of padding, wider shoes, anti-inflammatorie s, and orthotics. Discussed surgical treatment options and answered all questions about the intra-operative and post-operative treatment course. 07/04/2024 Osteophyte, 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 08/01/2024 Hallux valgus (acquired), right foot (ICD-10 - M20.11) Bunion: Discussed various treatments with the patient regarding hallux abducto valgus deformity. Discussed conservative care consisting of padding, wider shoes, anti-inflammatorie s, and orthotics. Discussed surgical treatment options and answered all questions about the intra-operative and post-operative treatment course. 08/01/2024 Osteophyte, 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 08/29/2024 Ingrowing nail (ICD-10 - L60.0) Slant Back Toenail: Following skin prep, the offending nail border was debrided without anesthesia. The patient was instructed on monitoring for infection or recurrence. Soaks: Patient was instructed to soak the affected foot with warm water and epsom salts 15 minutes twice a day. 08/29/2024 Osteophyte, 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 08/29/2024 Hallux valgus (acquired), right foot (ICD-10 - M20.11) Bunion: Discussed various treatments with the patient regarding hallux abducto valgus deformity. Discussed conservative care consisting of padding, wider shoes, anti-inflammatorie s, and orthotics. Discussed surgical treatment options and answered all questions about the intra-operative and post-operative treatment course. 08/01/2024 Hallux valgus (acquired), left foot (ICD-10 - M20.12) 07/04/2024 Hallux valgus (acquired), left foot (ICD-10 - M20.12) 06/06/2024 Hallux valgus (acquired), left foot (ICD-10 - M20.12) 06/06/2024 Peroneal tendinitis, right leg (ICD-10 - M76.71) Peroneal Tendonitis: I discussed anti-inflammatory treatment options and various means of immobilization with the patient. I educated the patient on icing and stretching, supportive shoegear, and the use of orthotic devices and bracing. 07/04/2024 Peroneal tendinitis, right leg (ICD-10 - M76.71) Peroneal Tendonitis: I discussed anti-inflammatory treatment options and various means of immobilization with the patient. I educated the patient on icing and stretching, supportive shoegear, and the use of orthotic devices and bracing. 08/29/2024 Hallux valgus (acquired), left foot (ICD-10 - M20.12) 08/01/2024 Peroneal tendinitis, right leg (ICD-10 - M76.71) Peroneal Tendonitis: I discussed anti-inflammatory treatment options and various means of immobilization with the patient. I educated the patient on icing and stretching, supportive shoegear, and the use of orthotic devices and bracing. 08/29/2024 Peroneal tendinitis, right leg (ICD-10 - M76.71) [...] patient on its use. Plan Of Treatment No Information Insurance Providers Payer Name Payer Address Payer Phone Subscriber Number Group Number Insured Name Patient Relationship to Insured Coverage Start Date Coverage End Date [facility] [address] [address] [place] [id number] Sara SETH Self - patient is the insured
== END 2024-11-26 11:04 | disposition home or self-care (01) ==
LOC: ANHIMG 11:04
PROVIDERS: Visit Provider Surgery
DX: D24.2 Benign neoplasm of left breast (principal); R92.8 Other abnormal and inconclusive findings on diagnostic imaging of breast
CPT/HCPCS: 76642; 77062; 77066; G0279

== ENCOUNTER 2025-01-23 00:15 | Day surgery (SDC) | payer OTHER, SELFPAY ==
--- OUTSIDE RECORDS SUMMARY | 2024-06-06 03:40 | XMS_ITS ---
Author Organization [facility] Address [address] [place], [place] [id number] Care Team Providers Care Manager Social Services Name Role Phone MARTINEZ BECKWITH Unavailable [phone] Charles López Unavailable Unavailable REASON FOR VISIT [...] tive Encounters Encounter Location Date Provider Diagnosis [address] [id number] 06/06/2024 MARTINEZ BECKWITH Osteophyte, left columba t [...] See how celebrex helped Provider Name:LEXIS BELTRAN, 02/13/2025 01:20:00 PM, [address] [place] [address], [phone], Progress Notes * Sara SETHDOB: [birth year] (64 yo F)Acc No.[id number]:06/06/2024 Patient: Sara WALLACE Provider: Onesimo Beckwith DPM :1960 A ge:64 Y S ex:Female Date:06/06/2024 Address:[address] [place] [address] [address] [id number] Subjective: * Chief Complaints: * 1 . [...] helped) * Billing Information: * Visit Code: 63094 Office Visit, Est Pt., Level 3. * Procedure Codes: * Electronic signature of MARTINEZ BECKWITH DPM on 01/23/2025 at 12:17 AM CDT Sign off status: Pending * Provider: Onesimo Beckwith DPM Date: 0 06/06/2024 Generated for Dominick payton/Serenity/Zachary on: 0 01/23/2025 12:17 AM CDT History and Physical Notes * HPI [...]
--- OUTSIDE RECORDS SUMMARY | 2024-11-28 08:00 | XMS_ITS ---
Author Organization [facility] Address [address] [place], [place] [address] Care Team Providers Care Customer Supply Coordinator Name Role Phone MARTINEZ BECKWITH Unavailable [phone] Charles López Unavailable Unavailable LEXIS HSU Unavailable [phone] Allergies No Known Allergies REASON FOR VISIT toenail issues Medications Medication SIG (Take, Route, Frequency, Duration) Notes Start Date End Date Status Losartan Potassium-HCTZ 100-25 MG 1 tablet Orally Once a day Active Clotrimazole 1 % 1 application Externally Once a day; Duration: 30 days 11/28/2024 11/23/2025 Active Celecoxib 200 MG 1 capsule with food Orally Once a day; Duration: 30 days One pack Active Celecoxib 200 MG 1 capsule with food Orally Once a day; Duration: 30 days Active amLODIPine Benzoate Active Biotin Active Solifenacin Succinate 10 MG 1 tablet Orally Once a day Active Vital Signs Height 64.00 in 11/28/2024 Weight 218 lbs 11/28/2024 BMI 37.42 kg/m2 11/28/2024 Height-cm 162.56 cm 11/28/2024 Weight-kg 98.88 kg 11/28/2024 Encounters Encounter Location Date Provider Diagnosis [address] [id number] 11/28/2024 LEXIS HSU Ingrowing nail L60.0 ; Hallux valgus (acquired), right foot M20.11 ; Hallux valgus (acquired), left foot M20.12 and Tinea unguium B35.1 Assessments Encounter Date Diagnosis (ICD Code) Assessment Notes Treatment Notes Treatment Clinical Notes Section Notes 11/28/2024 Ingrowing nail (ICD-10 - L60.0) Slant Back Toenail: Following skin prep, the offending nail border was debrided without anesthesia. The patient was instructed on monitoring for infection or recurrence. Soaks: Patient was instructed to soak the affected foot with warm water and epsom salts 15 minutes twice a day. 11/28/2024 Hallux valgus (acquired), right foot (ICD-10 - M20.11) Bunion: Discussed various treatments with the patient regarding hallux abducto valgus deformity. Discussed conservative care consisting of padding, wider shoes, anti-inflammatori es, and orthotics. Discussed surgical treatment options and answered all questions about the intra-operative and post-operative treatment course. 11/28/2024 Hallux valgus (acquired), left foot (ICD-10 - M20.12) 11/28/2024 Tinea unguium (ICD-10 - B35.1) Plan Of Treatment Medication Medication Name Sig Start Date Stop Date Notes Clotrimazole 1 % 1 application Knowledge Architect ally Once a day; Duration: 30 days 11/28/2024 11/23/2025 Treatment Notes Assessment Notes Ingrowing nail Slant Back Toenail: Following skin prep, the offending nail border was debrided without anesthesia. The patient was instructed on monitoring for infection or recurrence. Soaks: Patient was instructed to soak the affected foot with warm water and epsom salts 15 minutes twice a day. Hallux valgus (acquired), right foot Bun ion: Discussed various treatments with the patient regarding hallux abducto valgus deformity. Discussed conservative care consisting of padding, wider shoes, anti-inflammatories, and orthotics. Discussed surgical treatment options and answered all questions about the intra-operative and post-operative treatment course. Next Appt Details Follow Up: 3 Months,Check on nail fungus/pain, Reason: Provider Name:LEXIS BELTRAN, 02/13/2025 01:20:00 PM, [address] [place] [address], [id number], Progress Notes * Niels SETH: [birth year] (64 yo F)Acc No.[id number]:11/28/2024 Patient: Sara WALLACE Provider: Charles HSU :1960 A ge:64 Y S ex:Female Date:11/28/2024 Address: [place] [address] [facility] Subjective: * Chief Complaints: * 1 . Toenail issues. * HPI: H PI: New Complaint E stablished patient presents with a new complaint., Patient complains of an issue to right big toe, Duration of problem is 1-2 years., Patient denies any injury., MA: nd. * ROS: G eneral / Constitutional: Patient [...] confusion, difficulty speaking, dizziness. * Medical History: N o Reported Medical History.Medical History Verified. * Surgical History: D enies Past Surgical History. * Hospitalization/Major Diagno stic Procedure: D enies Past Hospitalization. * Family History: F ather: PRN - Father: :: Hypertension,,known absent . M other: PRN - Mother: :: Cancer,,known absent . B rother: SIB - Brother: :: Hypertension,,known absent . S ister: SIB - Sister: :: Hypertension,,known absent . * Social History: M igrated Social History: M igrated Social History: Smoking Status : Former tobacco user , Alcohol intake : , History of tobacco use :. * Medications: T aking amLODIPine Benzoate , Taking Solifenacin Succinate 10 MG Tablet 1 tablet Orally Once a day , Taking Biotin , Taking Losartan Potassium-HCTZ 100-25 MG Tablet 1 tablet Orally Once a day , Taking Celecoxib 200 MG Capsule 1 capsule with food Orally Once a day , Taking Celecoxib 200 MG Capsule 1 capsule with food Orally Once a day , Notes to Pharmacist: One pack, Medication List reviewed and reconciled with the patient * Allergies: N .K.D.A. Objective: * Vitals: S hoe Size: 64, Wt:218lbs, Wt-k.88 kg, Ht: 64.00 in, Ht-cm: 162.56 cm, BMI:37.42Index, Body Surface Area: 2.11. * Examination: C onstitutional: Constitutional T he patient is awake, alert, well developed, well groomed and well nourished. D ermatologic: Skin findings: S kin is warm, dry, supple with no breaks in the skin. Ingrown Nail N ail is incurvated on the, lateral border of the right great toenail, There is pain on palpation., There is no drainage. V ascular: Dorsalis pedis pulse: 2 /4, [...] the central tarsal-metatasal joints. Pain on palpation T here is no pain on palpation, There is no pain with range of motion. Hallux Abducto Valgus L aterally deviated hallux with medial prominence of the 1st metatarsal head left foot., Laterally deviated hallux with medial prominence of the 1st metatarsal head right foot.. Assessment: * Assessment: 1. I ngrowing nail - L60.0 (Primary) 2 . H allux valgus (acquired), right foot - M20.11 3 . H allux valgus (acquired), left foot - M20.12 4 . T inea unguium - B35.1 Plan: * Treatment: 2. H allux valgus (acquired), right foot Notes: Bunion: Discussed various treatments with the patient regarding hallux abducto valgus deformity. Discussed conservative care consisting of padding, wider shoes, anti-inflammatories, and orthotics. Discussed surgical treatment options and answered all questions about the intra-operative and post-operative treatment course. 3. T inea unguium Start Clotrimazole Cream, 1 %, 1 application, Externally, Once a day, 30 days, 1 Unspecified, Refills 11. * Follow Up: 3 Months,Check on nail fungus/pain * Billing Information: * Visit Code: 08209 Office Visit, Est Pt., Level 3. * Procedure Codes: * Electronic signature of SUE HSU , DPM on 01/23/2025 at 12:18 AM CDT Sign off status: Pending * Provider: Charles HSU Date: 0 11/28/2024 Generated for Dominick payton/Serenity/Jossyitting on: 0 01/23/2025 12:18 AM CDT History and Physical Notes * HPI (History of Present Illness) Category Sub-Category Detail Notes Category Not es HPI New Complaint Established fermín ent presents with a new complaint., Patient complains of an issue to right big toe, Duration of problem is 1-2 years., Patient denies any injury., MA: nd Examination Category Sub-Category Detail Notes Category Not es Dermatologic Skin findings: Skin is warm, dr y, supple with no breaks in the skin Ingrown Nail Nail is incurvated o n the, lateral border of the right great toenail, There is pain on palpation., There is no drainage Neurologic Gross sensation Gross sensation is intact [...] the central tarsal-metatasal joints Pain on palpation There is no pain on palpation, There is no pain with range of motion Hallux Abducto Valgus Laterally deviated hallux with medial prominence of the 1st metatarsal head left foot., Laterally deviated hallux with medial prominence of the 1st metatarsal head right foot. Constitutional Constitutional The patient is a wake, alert, well developed, well groomed and well nourished
[2025-01-09 13:39] VITALS: BMI 36.9
--- OUTSIDE RECORDS SUMMARY | 2025-01-23 00:18 | XMS_ITS | Patient Health Record ---
Author Organization [facility] Address [address] [place], [place] [address] Care Team Providers Care Edge Polisher Name Role Phone CHANCE MARTINEZ Unavailable [phone] MaribelVipinHcarles Unavailable Unavailable SHADI LEXIS Unavailable [phone] Allergies No Known Allergies Reason For Referral No Information Medications Medication SIG (Take, Route, Frequency, Duration) Notes Start Date End Date Status Biotin Active Solifenacin Succinate 10 MG 1 tablet Orally Once a day Active Losartan Potassium-HCTZ 100-25 MG 1 tablet Orally Once a day Active Clotrimazole 1 % 1 application Externally Once a day; Duration: 30 days 11/28/2024 11/23/2025 Active Celecoxib 200 MG 1 capsule with food Orally Once a day; Duration: 30 days One pack Active Celecoxib 200 MG 1 capsule with food Orally Once a day; Duration: 30 days Active amLODIPine Benzoate Active Immunizations Vaccine Route Administration Date Status Comme nts Pneumococcal conjugate PCV 13 Unknown 07/04/2024 Refuse d Influenza, high dose seasonal Unknown 07/04/2024 Refuse d Vital Signs Height-cm 162.56 cm 11/28/2024 Weight-kg 98.88 kg 11/28/2024 Height 64.00 in 11/28/2024 Weight 218 lbs 11/28/2024 BMI 37.42 kg/m2 11/28/2024 Encounters Encounter Location Date Provider Diagnosis [address] [id number] 06/06/2024 MARTINEZ BECKWITH Osteophyte, left foot M25.775 ; Hallux valgus (acquired), right foot M20.11 ; Hallux valgus (acquired), left foot M20.12 and Peroneal tendinitis, right leg M76.[address] [id number] 11/28/2024 LEXIS HSU Ingrowing nail L60.0 ; Hallux valgus (acquired), right foot M20.11 ; Hallux valgus (acquired), left foot M20.12 and Tinea unguium B35.[address] [id number] 07/04/2024 MARTINEZ SNOOK Osteophyte, left foot M25.775 ; Hallux valgus (acquired), right foot M20.11 ; Hallux valgus (acquired), left foot M20.12 and Peroneal tendinitis, right leg M76.[address] [id number] 08/01/2024 MARTINEZ SNOOK Hallux valgus (acquired), right foot M20.11 ; Osteophyte, left foot M25.775 ; Hallux valgus (acquired), left foot M20.12 and Peroneal tendinitis, right leg M76.[address] [id number] 08/29/2024 MARTINEZ SNOOK Osteophyte, left foot M25.775 ; Ingrowing nail L60.0 ; Hallux valgus (acquired), right foot M20.11 ; Hallux valgus (acquired), left foot M20.12 and Peroneal tendinitis, right leg M76.71 [facility] [address] [id number] 08/07/2024 MARTINEZ BECKWITH Assessments Encounter Date Diagnosis (ICD Code) Assessment [...] including padding, extra-depth shoes, and surgical resection. 11/28/2024 Ingrowing nail (ICD-10 - L60.0) Slant [...] valgus (acquired), left foot (ICD-10 - M20.12) 08/29/2024 Hallux valgus (acquired), right foot (ICD-10 [...] the use of orthotic devices and bracing. 11/28/2024 Tinea unguium (ICD-10 - B35.1) 08/29/2024 Peroneal tendinitis, right leg (ICD-10 - [...] patient on its use. Plan Of Treatment Next Appt Details Provider Name:LEXIS BELTRAN, 02/13/2025 01:20:00 PM, [address] [place] [address], [id number], Insurance Providers Payer Name Payer Address Payer Phone Subscriber Number Group Number Insured Name Patient Relationship to Insured Coverage Start Date Coverage End Date [facility] [address] [address] [place] [id number] Sara SETH Self - patient is the insured
[2025-01-23 07:19] VITALS: BP 152/89; PULSE 75; RESP 16; TEMP 36.2; O2SAT 97; BMI 36.9
[2025-01-23] MEDS: LACTATED RINGERS 1,000 ML 150 ML IV CONT (07:33)
--- NOTE | 2025-01-23 08:10 | WPDANESEPPF ---
Anes - Initial Pre Proc Eval Procedure: Operation Date: 01/23/25 08:30 Proposed Procedures p Screening Colonoscopy - Galindo Moreno MD Date/Time: 01/23/25 08:10 Surgeon: Galindo Moreno MD Pre Op Diagnosis: screening positive cologuard Patient Data Age: 64 Gender: F Height: 1.63 m Weight: 97.7 kg Last Vital Signs Temp 97.1 F L 01/23/25 07:19 Pulse 75 01/23/25 07:19 Resp 16 01/23/25 07:19 BP 152/89 H 01/23/25 07:19 Pulse Ox 97 01/23/25 07:19 O2 Del Method Room Air 01/23/25 07:19 Allergies Allergy/AdvReac Type Severity Reaction Status Date / Time No Known Allergies Allergy Verified 01/23/25 07:23 Home Medications ?Medication ?Instructions ?Recorded ?Confirmed ?Type amlodipine 5 mg tablet 5 mg PO HS 02/16/23 01/23/25 History xkkkfbr-qqvqixcid-wepn 1 tablet PO DAILY 02/16/23 01/23/25 History losartan 100 1 tablet PO DAILY 02/16/23 01/23/25 History mg-hydrochlorothiazide 25 mg tablet aspirin 81 mg tablet,delayed 81 mg PO .every other day 07/22/24 01/23/25 History release solifenacin 5 mg tablet 10 mg PO DAILY 07/22/24 01/23/25 History biotin 1 mg capsule 1 mg PO DAILY 01/09/25 01/23/25 History glucosamine-chondroitin 250 mg-200 2 tablet PO DAILY 01/09/25 01/23/25 History mg tablet ledtigzp-hnp-nocm-FA-Ca carb-vit K 1 tablet PO DAILY 01/09/25 01/23/25 History 18 mg iron-400 mcg-500 mg tablet (One-A-Day Womens Formula) Patient hx anesthesia problems: none Family hx anesthesia problems: none Results Review: All pre-operative results and documents have been reviewed as part of the pre-operative evaluation. [facility] Past Medical History Medical History Sepsis Calculus of distal left ureter Septic shock due to urinary tract infection Kidney stone section wound complication Hypertension Surgical History Surgical History Hx of cystoscopy Family History Family History Mother Hypertension COPD (chronic obstructive pulmonary disease) Father Hypertension Heart attack Sibling Hypertension Social History Social History Smoking packs per day: 0.25 Smoking cigarettes per day: 5.0 Years smoked: 8 Smoking pack-years: 2.00 Smoking status: Former smoker Tobacco type: cigarettes Smoking end date: 05/01/82 Additional smoking assessment comments: FORMER SOCIAL SMOKER Alcohol intake: never Drinks per week: 1 Alcohol use details: RARE Substance use: never Substance use type: does not use Do You Feel Safe in your Home?: Yes Lack of Transportation: No Lack of Food: Never True Current Housing: I Have Housing Concerned About Future Housing: No Difficulty Paying Gas/Electric Bills: No Difficulty Paying for Meds: No Currently Unemployed: No Education: Associate Degree Difficulty w/ Childcare or Family Care: No Living arrangements: with family Spiritual care concerns: No Anes - Eval Final PreProcedure Day of Procedure 01/23/25 08:10 Patient weight: obese Lungs: normal air movement Airway: Mallampati scale class II Neurological: alert and oriented Last oral intake: >/= 8 hours ASA classification: II Emergent: no Anesthetic plan: proceed Anesthesia type and monitoring: general GIVS and standard monitoring Results Review: All pre-operative results and documents have been reviewed as part of the pre-operative evaluation. BMI 37, HTN, remote ex smoker. Informed Consent: The patient's anesthetic plan and its attendant risks and benefits were discussed with the patient/family/POA. Questions were solicited and answers provided to the satisfaction of the patient/family/POA.
--- NOTE | 2025-01-23 08:19 | P.HP_ITS ---
H&P: HPI History of Present Illness Date/Time: 01/23/25 08:19 Chief Complaint: Positive Cologuard test Narrative: This is the patient's first colonoscopy. she has been undergoing Cologuard test yearly, and the last 1 came back positive.There are no GI symptoms and there is no family history of colorectal cancer. Review of Systems Review of Systems: All systems reviewed & are unremarkable except as noted in HPI and below PMFSH Past Medical History Medical History Sepsis Calculus of distal left ureter Septic shock due to urinary tract infection Kidney stone section wound complication Hypertension Surgical History Surgical History Hx of cystoscopy Family History Family History Mother Hypertension COPD (chronic obstructive pulmonary disease) Father Hypertension Heart attack Sibling Hypertension Social History Social History Smoking packs per day: 0.25 Smoking cigarettes per day: 5.0 Years smoked: 8 Smoking pack-years: 2.00 Smoking status: Former smoker Tobacco type: cigarettes Smoking end date: 05/01/82 Additional smoking assessment comments: FORMER SOCIAL SMOKER Alcohol intake: never Drinks per week: 1 Alcohol use details: RARE Substance use: never Substance use type: does not use Do You Feel Safe in your Home?: Yes Lack of Transportation: No Lack of Food: Never True Current Housing: I Have Housing Concerned About Future Housing: No Difficulty Paying Gas/Electric Bills: No Difficulty Paying for Meds: No Currently Unemployed: No Education: Associate Degree Difficulty w/ Childcare or Family Care: No Living arrangements: with family Spiritual care concerns: No Meds Home Medications and Allergies Home Medications ?Medication ?Instructions ?Recorded ?Confirmed ?Type amlodipine 5 mg tablet 5 mg PO HS 02/16/23 01/23/25 History pklxoom-aclbzzogf-kgvg 1 tablet PO DAILY 02/16/23 0 01/23/25 History losartan 100 1 tablet PO DAILY 02/16/23 0 01/23/25 History mg-hydrochlorothiazide 25 mg tablet aspirin 81 mg tablet,delayed 81 mg PO .every other day 07/22/24 01/23/25 History release solifenacin 5 mg tablet 10 mg PO DAILY 07/22/24 09/2 09/22 History biotin 1 mg capsule 1 mg PO DAILY 01/09/2501/23 History glucosamine-chondroitin 250 mg-200 2 tablet PO DAILY 0 01/09/25 01/23/25 History mg tablet ngysbomq-wsz-frdr-FA-Ca carb-vit K 1 tablet PO DAILY 0 01/09/25 01/23/25 History 18 mg iron-400 mcg-500 mg tablet (One-A-Day Womens Formula) Allergies Allergy/AdvReac Type Severity Reaction Status Date / Time No Known Allergies Allergy Verified 01/23/25 07:23 Vital Signs Vital Signs - 24 hr 01/23/25 07:19 Temperature 97.1 F L Pulse Rate 75 Respiratory Rate 16 Blood Pressure 152/89 H Pulse Oximetry 97 Oxygen Delivery Room Air Exam Const: General: cooperative and healthy appearing Resp: Effort & Inspection: normal respiratory effort and able to speak in complete sentences Auscultation: clear to auscultation bilaterally Cardio: Rate: regular rate Rhythm: regular rhythm GI: Inspection: normal to inspection GI Palp: No No hepatosplenomegaly present Auscultation: normal bowel sounds Rectal Exam: deferred Skin: General skin exam: normal color Psych: Appearance: grossly normal Mental Status: mental status grossly normal Assessment and Plan Assessment and plan (1) Positive colorectal cancer screening using Cologuard test: Code(s): R19.5 - Other fecal abnormalities Status: Acute Assessment and Plan: The patient is deemed a good candidate for the procedure. Consent signed. Will proceed.
--- NOTE | 2025-01-23 08:42 | S_PTH ---
PATIENT: Sara Gore LOC: [facility] U#:[id number] AGE/SX: 64/F ROOM: RE01/23/[address]: Galindo Moreno MD : 1960 BED: DIS: 01/23/2025 SPEC #: [id number] RECD: 01/23/25 10:07 STATUS: JAELYN DAILY #: [id number] ISAIAH: 01/23/25 08:[address]: Galindo Moreno DEPT: [facility] Surgical RECD BY: Nai Burnham ENTERED: 01/23/25 10:07 SP TYPE: Surgical OTHR DR: Charles López MD Tissues: A - Colon Polypectomy Procedures: Hematoxylin and Eosin Stain Gross and Microscopic Level 4
[2025-01-23 08:47] VITALS: BP 120/61; PULSE 70; RESP 20; O2SAT 99
[2025-01-23 08:57] VITALS: BP 117/77; PULSE 66; RESP 18; O2SAT 99
[2025-01-23 09:07] VITALS: BP 136/77; PULSE 64; RESP 18; O2SAT 100
== END 2025-01-23 09:21 | disposition home or self-care (01) ==
PROVIDERS: PCP Internal Medicine; Referring Provider Student in an Organized Health Care Education/Training Program; Visit Provider Internal Medicine Gastroenterology
PROC: 0DJD8ZZ Inspection of Lower Intestinal Tract, Via Natural or Artificial Opening Endoscopic (ICD-10-PCS; CPT 45378; principal; 2025-01-23 08:30)
DX: D12.5 Benign neoplasm of sigmoid colon (principal); I10 Essential (primary) hypertension; E66.9 Obesity, unspecified; Z68.37 Body mass index [BMI] 37.0-37.9, adult; Z79.82 Long term (current) use of aspirin; Z98.890 Other specified postprocedural states; Z87.442 Personal history of urinary calculi; Z87.891 Personal history of nicotine dependence; Z82.49 Family history of ischemic heart disease and other diseases of the circulatory system
CPT/HCPCS: 45385; 88305; J2003; J2704; J7120

== ENCOUNTER 2025-02-20 15:37 | Outpatient (CLI) | payer OTHER, SELFPAY ==
--- OUTSIDE RECORDS SUMMARY | 2024-06-06 03:40 | XMS_ITS ---
Author Organization [facility] Address [address] [place], [place] [id number] Care Team Providers Care Solar Thermal Installer Name Role Phone MARTINEZ BECKWITH Unavailable [phone] Charles López Unavailable Unavailable REASON FOR VISIT The patient has multiple foot issues. She has a painful lump on the top of her left foot. Shoes andstraps from shoes press against it. She wears supportive shoes and Powerstep inserts. She has had oral steroid and it helps for a bit., She also has some pain to the outside of her right foot. She has been walking different because of the pain. Lastly, she has bunions of both feet. She is inquiringabout what correction would entail Medications Medication SIG (Take, Route, Fr equency, Duration) Notes Start Date End Date Status Celecoxib 200 MG 1 capsule with food Orally Once a day; Duration: 30 days One pack 06/06/2024 07/06/2024 Ac tive Encounters Encounter Location Date Provider Diagnosis [address] [id number] 06/06/2024 MARTINEZ BECKWITH Osteophyte, left columba t M25.775 ; Hallux valgus (acquired), right foot M20.11 ; Hallux valgus (acquired), left foot M20.12 and Peroneal tendinitis, right leg M76.71 Assessments Encounter Date Diagnosis (ICD Code) Assessment Notes Treatment Notes Treatment Clinical Notes Section Notes 06/06/2024 Osteophyte, 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 06/06/2024 Hallux valgus (acquired), right foot (ICD-10 - M20.11) Bunion: Discussed various treatments with the patient regarding hallux abducto valgus deformity. Discussed conservative care consisting of padding, wider shoes, anti-inflammatorie s, and orthotics. Discussed surgical treatment options and answered all questions about the intra-operative and post-operative treatment course. 06/06/2024 Hallux valgus (acquired), left foot (ICD-10 - M20.12) 06/06/2024 Peroneal tendinitis, right leg (ICD-10 - M76.71) Peroneal Tendonitis: I discussed anti-inflammatory treatment options and various means of immobilization with the patient. I educated the patient on icing and stretching, supportive shoegear, and the use of orthotic devices and bracing. 06/06/2024 Other Shoe Recommendation: Advised patient on appropriate shoe gear for protection, healing and good foot health. Continue Powersteps. Voltaren Gel: Recommend that the patient obtain over the counter topical Voltaren Gel 1%. I educated the patient on its use. Plan Of Treatment Medication Medication Name Sig Start Date Stop Date Notes Celecoxib 200 MG 1 capsule with food Orally Once a day; Duration: 30 days 06/06/2024 07/06/2024 One pack Treatment Notes Assessment Notes Osteophyte, left foot Exostosis: Discussed various treatments for the exostosis including padding, extra-depth shoes, and surgical resection. Hallux valgus (acquired), right foot Bun ion: Discussed various treatments with the patient regarding hallux abducto valgus deformity. Discussed conservative care consisting of padding, wider shoes, anti-inflammatories, and orthotics. Discussed surgical treatment options and answered all questions about the intra-operative and post-operative treatment course. Peroneal tendinitis, right leg Peroneal Tendonitis: I discussed anti-inflammatory treatment options and various means of immobilization with the patient. I educated the patient on icing and stretching, supportive shoegear, and the use of orthotic devices and bracing. Other Shoe Recommendation: Advised patient on appropriate shoe gear for protection, healing and good foot health. Continue Powersteps. Voltaren Gel: Recommend that the patient obtain over the counter topical Voltaren Gel 1%. I educated the patient on its use. Next Appt Details Follow Up: 4 Weeks, Reason: See how celebrex helped Provider Name:LEXIS BELTRAN, 04/17/2025 01:20:00 PM, [address] [place] [address], [phone], Progress Notes * Sara SETHDOB: [birth year] (64 yo F)Acc No.[id number]:06/06/2024 Patient: Sara WALLACE Provider: Onesimo Beckwith DPM :1960 A ge:64 Y S ex:Female Date:06/06/2024 Address:[address] [place] [address] [id number] Subjective: * Chief Complaints: * 1 . The patient has multiple foot issues. She has a painful lump on the top of her left foot. Shoes and straps from shoes press against it. She wears supportive shoes and Powerstep inserts. She has had oral steroid and it helps for a bit.. 2. She also has some pain to the outside of her right foot. She has been walking different because of the pain. Lastly, she has bunions of both feet. She is inquiring about what correction would entail. * HPI: H PI: New Complaint E stablished patient presents with a new complaint., Patient complains of an issue to bilateral foot pain. Patient states that she has been seen for her left foot pain before. She states that the top of the foot is hurting. She states that she was diagnosed with a cyst on the top of the foot and was given inserts and told to wear compression socks. She said that the inserts helped a lot until now. She states that the doctor told her that if the inserts did not help that they were going to put her in a soft cast on the left. She states that the top and lateral side of the right foot are what is hurting. She states that the top of the right foot was swollen earlier this week. That pain has been going on for about 2 weeks. , MA: kyara. * ROS: G eneral / Constitutional: Patient denies c hills, fever, weakness, night sweats. M usculoskeletal: Patient denies c hildhood foot problems, weakness. P atient complains of b unions, arthritis, lump on left foot. P eripheral Vascular: Patient denies u lceration of feet, cold extremities. ? S kin: Patient denies u lcerations, discoloration. ? N eurologic: Patient denies b alance difficulty, confusion, difficulty speaking, dizziness. * Medical History: * Medications: N one Objective: * Vitals: * Examination: C onstitutional: Constitutional T he patient is awake, alert, well developed, well groomed and well nourished. D ermatologic: Skin findings: S kin is warm, dry, supple with no breaks in the skin. V ascular: Dorsalis pedis pulse: 2 /4, bilateral. Posterior tibial pulse: 2 /4, bilateral. Capillary refill: l ess than 3 seconds. Edema: N o edema, bilateral. N eurologic: Gross sensation G ross sensation is intact to light touch.? M usculoskeletal: Muscle Strength M uscle strength is 5/5 in regards to dorsiflexion, plantarflexion, inversion, and eversion in bilateral lower extremities. Raised osseous mass noted to the dorsal aspect of the central tarsal-metatasal joints. Pain on palpation p eroneal tendons of the right foot. Hallux Abducto Valgus L aterally deviated hallux with medial prominence of the 1st metatarsal head left foot., Laterally deviated hallux with medial prominence of the 1st metatarsal head right foot.. Assessment: * Assessment: 1. O steophyte, left foot - M25.775 (Primary) 2 . H allux valgus (acquired), right foot - M20.11 3 . H allux valgus (acquired), left foot - M20.12 ? 4 . P eroneal tendinitis, right leg - M76.71 Plan: * Treatment: 2. H allux valgus (acquired), right foot Notes: Bunion: Discussed various treatments with the patient regarding hallux abducto valgus deformity. Discussed conservative care consisting of padding, wider shoes, anti-inflammatories, and orthotics. Discussed surgical treatment options and answered all questions about the intra-operative and post-operative treatment course. 3. P eroneal tendinitis, right leg Notes: Peroneal Tendonitis: I discussed anti-inflammatory treatment options and various means of immobilization with the patient. I educated the patient on icing and stretching, supportive shoegear, and the use of orthotic devices and bracing. 4. O thers Notes: Shoe Recommendation: Advised patient on appropriate shoe gear for protection, healing and good foot health. Continue Powersteps. Voltaren Gel: Recommend that the patient obtain over the counter topical Voltaren Gel 1%. I educated the patient on its use. * Follow Up: 4 Weeks (Reason: See how celebrex helped) * Billing Information: * Visit Code: 54927 Office Visit, Est Pt., Level 3. * Procedure Codes: * Electronic signature of MARTINEZ BECKWITH DPM on 02/20/2025 at 04:32 PM CDT Sign off status: Pending * Provider: Onesimo Beckwith DPM Date: 0 06/06/2024 Generated for Dominick payton/Serenity/Zachary on: 1 04:32 PM CDT History and Physical Notes * HPI (History of Present Illness) Category Sub-Category Detail Notes Category Not es HPI New Complaint Established fermín ent presents with a new complaint., Patient complains of an issue to bilateral foot pain. Patient states that she has been seen for her left foot pain before. She states that the top of the foot is hurting. She states that she was diagnosed with a cyst on the top of the foot and was given inserts and told to wear compression socks. She said that the inserts helped a lot until now. She states that the doctor told her that if the inserts did not help that they were going to put her in a soft cast on the left. She states that the top and lateral side of the right foot are what is hurting. She states that the top of the right foot was swollen earlier this week. That pain has been going on for about 2 weeks. , MA: kyara Examination Category Sub-Category Detail Notes Category Not es Dermatologic Skin findings: Skin is warm, dr y, supple with no breaks in the skin Neurologic Gross sensation Gross sensation is intact to light touch Vascular Dorsalis pedis pulse: 2/4, bilateral Edema: No edema, bilateral Capillary refill: less than 3 seconds Posterior tibial pulse: 2/4, bilateral Musculoskeletal Muscle Strength Muscle strength is 5/5 in regards to dorsiflexion, plantarflexion, inversion, and eversion in bilateral lower extremities. Raised osseous mass noted to the dorsal aspect of the central tarsal-metatasal joints Pain on palpation peroneal tendons of the right foot Hallux Abducto Valgus Laterally deviated hallux with medial prominence of the 1st metatarsal head left foot., Laterally deviated hallux with medial prominence of the 1st metatarsal head right foot. Constitutional Constitutional The patient is a wake, alert, well developed, well groomed and well nourished
--- OUTSIDE RECORDS SUMMARY | 2024-11-28 08:00 | XMS_ITS ---
Author Organization [facility] Address [address] [place], [place] [address] Care Team Providers Care Keyboard Instrument Repairer Name Role Phone MARTINEZ BECKWITH Unavailable [phone] Charles López Unavailable Unavailable LEXIS HSU Unavailable [phone] Allergies No Known Allergies REASON FOR VISIT [...] Orally Once a day Active Vital Signs Weight 218 lbs 11/28/2024 Weight-kg 98.88 kg 11/28/2024 Height 64.00 in 11/28/2024 Height-cm 162.56 cm 11/28/2024 BMI 37.42 kg/m2 11/28/2024 Encounters Encounter Location Date Provider Diagnosis [address] [id number] 11/28/2024 LEXIS HSU Ingrowing nail L60.0 ; [...] Date Notes Clotrimazole 1 % 1 application Senior Behavioral Scientist ally Once a day; Duration: 30 days [...] on nail fungus/pain, Reason: Provider Name:LEXIS BELTRAN, 04/17/2025 01:20:00 PM, [address] [place] [address], [phone], Progress Notes * Niels SETH: [birth year] (64 yo F)Acc No.[id number]:11/28/2024 Patient: Sara WALLACE Provider: Charles HSU :1960 A ge:64 Y S ex:Female Date:11/28/2024 Address: [place] [address] [facility] Subjective: * Chief Complaints: * 1 . [...] fungus/pain * Billing Information: * Visit Code: 53790 Office Visit, Est Pt., Level 3. * Procedure Codes: * Electronic signature of SUE HSU , DPM on 02/20/2025 at 04:32 PM CDT Sign off status: Pending * Provider: Charles HSU Date: 0 11/28/2024 Generated for Dominick payton/Serenity/Zachary on: 1 04:32 [...]
--- OUTSIDE RECORDS SUMMARY | 2025-02-13 08:20 | XMS_ITS ---
Author Organization [facility] Address [address] [place], [place] [id number] Care Team Providers Care Turpentine Distiller Name Role Phone MARTINEZ BECKWITH Unavailable [phone] Charles López Unavailable Unavailable LEXIS HSU Unavailable [phone] Allergies No Known Allergies REASON FOR VISIT *General care Medications Medication SIG (Take, Route, Frequency, Duration) Notes Start Date End Date Status Biotin Active Solifenacin Succinate 10 MG 1 tablet Orally Once a day Active Celecoxib 200 MG 1 capsule with food Orally Once a day; Duration: 30 days One pack Active Celecoxib 200 MG 1 capsule with food Orally Once a day; Duration: 30 days Active Losartan Potassium-HCTZ 100-25 MG 1 tablet Orally Once a day Active amLODIPine Benzoate Active Clotrimazole 1 % 1 application Manager Urgent Care ally Once a day; Duration: 30 days Active Vital Signs Weight 218 lbs 02/13/2025 Weight-kg 98.88 kg 02/13/2025 Height 64.00 in 02/13/2025 Height-cm 162.56 cm 02/13/2025 BMI 37.42 kg/m2 02/13/2025 Encounters Encounter Location Date Provider Diagnosis [address] [id number] 02/13/2025 LEXIS HSU Ingrowing nail L60.0 ; Hallux valgus (acquired), right foot M20.11 ; Hallux valgus (acquired), left foot M20.12 and Tinea unguium B35.1 Assessments Encounter Date Diagnosis (ICD Code) Assessment Notes Treatment Notes Treatment Clinical Notes Section Notes 02/13/2025 Ingrowing nail (ICD-10 - L60.0) Slant Back Toenail: Following skin prep, the offending nail border was debrided without anesthesia. The patient was instructed on monitoring for infection or recurrence. Soaks: Patient was instructed to soak the affected foot with warm water and epsom salts 15 minutes twice a day. 02/13/2025 Hallux valgus (acquired), right foot (ICD-10 - M20.11) Bunion: Discussed various treatments with the patient regarding hallux abducto valgus deformity. Discussed conservative care consisting of padding, wider shoes, anti-inflammatori es, and orthotics. Discussed surgical treatment options and answered all questions about the intra-operative and post-operative treatment course. 02/13/2025 Hallux valgus (acquired), left foot (ICD-10 - M20.12) 02/13/2025 Tinea unguium (ICD-10 - B35.1) Plan Of Treatment Medication Medication Name Sig Start Date Stop Date Notes Clotrimazole 1 % 1 application Manager Urgent Care ally Once a day; Duration: 30 days Treatment Notes Assessment Notes Ingrowing nail Slant [...] treatment course. Next Appt Details Follow Up: 9 weeks Yamilka DURAN n: Provider Name:LEXIS BELTRAN, 04/17/2025 01:20:00 PM, [address] [place] [address], [phone], Progress Notes * Sara SETHDOB: [birth year] (64 yo F)Acc No.[id number]:02/13/2025 Patient: Sara WALLACE Provider: Charles HSU :1960 A ge:64 Y S ex:Female Date:02/13/2025 Address:[address] [place] [address] [address] [id number] Subjective: * Chief Complaints: * 1 . *General care. * HPI: H PI: General care P yolanda presents to the office for at risk foot care. She is considering left foot surgery lapidus but wants to wait. She is considering right 1st toe matrixectomy partial lateral nail edge. Now is not a good time. P yolanda states that their nails are thickened, elongated and painful. Patient states that it is aggravated by shoe gear. Onset is gradual. Patient denies being diabetic., Patient denies taking prescription blood thinners but does take a daily aspirin., Date last seen by Dr. López was 12/2024., Initials nd. * ROS: G eneral / Constitutional: Patient denies c hills, fever, weakness, night sweats. M usculoskeletal: Patient denies c hildhood foot problems, weakness. P yolanda complains of b unions, arthritis, lump on [...] day , Notes to Pharmacist: One pack, Taking Clotrimazole 1 % Cream 1 application Externally Once a day , stop date 11/23/2025, Medication List reviewed and reconciled with the patient * Allergies: N .K.D.A. Objective: * Vitals: S hoe Size: 8, Wt:218lbs, Wt-k.88 kg, Ht: 64.00 in, Ht-cm: [...] refill: l ess than 3 seconds. Edema: l eft foot dorsal aspect e kostas mild pain on palpation, no bruising. N eurologic: Gross sensation G ross sensation [...] 1 Unspecified, Refills 11. * Follow Up: 9 weeks GC * Billing Information: * Visit Code: * Procedure Codes: * Electronic signature of SUE HSU DPM on 02/20/2025 at 04:31 PM CDT Sign off status: Pending * Provider: Charles HSU Date: Generated for Dominick payton/Serenity/Zachary on: 04:31 PM CDT History and Physical Notes * HPI (History of Present Illness) Category Sub-Category Detail Notes Category Not es HPI General care Patient presents to the office for at risk foot care. She is considering left foot surgery lapidus but wants to wait. She is considering right 1st toe matrixectomy partial lateral nail edge. Now is not a good time.Patient states that their nails are thickened, elongated and painful. Patient states that it is aggravated by shoe gear. Onset is gradual. Patient denies being diabetic., Patient denies taking prescription blood thinners but does take a daily aspirin., Date last seen by Dr. López was 12/2024., Initials nd Examination Category Sub-Category Detail Notes Category [...] Vascular Dorsalis pedis pulse: 2/4, bilateral Edema: left foot dorsal asp ect edema mild pain on palpation, no bruising Capillary refill: less than 3 seconds Posterior [...]
--- NOTE | ~2025-02-20 | XR_ITS ---
XR lumbar spine 2-3V Indication: radiculopathy lumbar, low back pain Comparison: None Findings: Grade 1 retrolisthesis of L1 on L2 and L2 on L3 with grade 1 anterolisthesis of L4 on L5, no fracture identified. Moderate to severe loss of disc height throughout most marked at L5-S1. Soft tissues unremarkable Impression: No acute abnormality. Reviewed, dictated and finalized at location P. Impression: No acute abnormality.
--- OUTSIDE RECORDS SUMMARY | 2025-02-20 16:32 | XMS_ITS | Patient Health Record ---
Author Organization [facility] Address [address] [place], [place] [id number] Care Team Providers Care Teacher Learning Disabled Name Role Phone CHANCE MARTINEZ Unavailable [phone] Maribel Charles Unavailable Unavailable SHADI LEXIS Unavailable [phone] Allergies No Known Allergies Reason For Referral No Information Medications Medication SIG (Take, Route, Frequency, Duration) Notes Start Date End Date Status Biotin Active Solifenacin Succinate 10 MG 1 tablet Orally Once a day Active amLODIPine Benzoate Active Clotrimazole 1 % 1 application Carton Catcher ally Once a day; Duration: 30 days Active Celecoxib 200 MG 1 capsule with food Orally Once a day; Duration: 30 days One pack Active Celecoxib 200 MG 1 capsule with food Orally Once a day; Duration: 30 days Active Losartan Potassium-HCTZ 100-25 MG 1 tablet Orally Once a day Active Immunizations Vaccine Route Administration Date Status Comme nts Influenza, high dose seasonal Unknown 07/04/2024 Refuse d Pneumococcal conjugate PCV 13 Unknown 07/04/2024 Refuse d Vital Signs Height-cm 162.56 cm 02/13/2025 Weight-kg 98.88 kg 02/13/2025 Height 64.00 in 02/13/2025 Weight 218 lbs 02/13/2025 BMI 37.42 kg/m2 02/13/2025 Encounters Encounter Location Date Provider Diagnosis [address] [id number] 06/06/2024 MARTINEZ BECKWITH Osteophyte, left foot M25.775 ; Hallux valgus (acquired), right foot M20.11 ; Hallux valgus (acquired), left foot M20.12 and Peroneal tendinitis, right leg M76.[address] [id number] 11/28/2024 LEXIS HSU Ingrowing nail L60.0 ; Hallux valgus (acquired), right foot M20.11 ; Hallux valgus (acquired), left foot M20.12 and Tinea unguium B35.[address] [id number] 02/13/2025 LEXIS HSU Ingrowing nail L60.0 ; Hallux valgus (acquired), right foot M20.11 ; Hallux valgus (acquired), left foot M20.12 and Tinea unguium B35.[address] [id number] 07/04/2024 MARTINEZ SNOOK Osteophyte, left foot M25.775 ; Hallux valgus (acquired), right foot M20.11 ; Hallux valgus (acquired), left foot M20.12 and Peroneal tendinitis, right leg M76.[address] [id number] 08/01/2024 MARTINEZ SNOOK Hallux valgus (acquired), right foot M20.11 ; Osteophyte, left foot M25.775 ; Hallux valgus (acquired), left foot M20.12 and Peroneal tendinitis, right leg M76.[address] [id number] 08/29/2024 MARTINEZ SNOOK Osteophyte, left foot M25.775 ; Ingrowing nail L60.0 ; Hallux valgus (acquired), right foot M20.11 ; Hallux valgus (acquired), left foot M20.12 and Peroneal tendinitis, right leg M76.71 [facility] [address] [id number] 08/07/2024 MARTINEZ SNPHYLLISK Assessments Encounter Date Diagnosis (ICD Code) Assessment [...] salts 15 minutes twice a day. 11/28/2024 Ingrowing nail (ICD-10 - L60.0) Slant [...] about the intra-operative and post-operative treatment course. 08/29/2024 Osteophyte, 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 02/13/2025 Ingrowing nail (ICD-10 - L60.0) Slant [...] (acquired), left foot (ICD-10 - M20.12) 11/28/2024 Hallux valgus (acquired), left foot (ICD-10 [...] the use of orthotic devices and bracing. 02/13/2025 Tinea unguium (ICD-10 - B35.1) 11/28/2024 Tinea unguium (ICD-10 - B35.1) 08/29/2024 [...] Of Treatment Next Appt Details Provider Name:LEXIS Abdul DELON BELTRAN, 04/17/2025 01:20:00 PM, [address] [place] [address], [phone], Insurance Providers Payer Name Payer Address Payer Phone Subscriber Number Group Number Insured Name Patient Relationship to Insured Coverage Start Date Coverage End Date [facility] [address] [address] [place] [id number] Sara SETH Self - patient is the insured
--- OUTSIDE RECORDS SUMMARY | 2025-02-20 16:32 | XMS_ITS | Data Portability ---
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 Name Role Phone JESSIKA VILLALOBOS Primary Care Provider Assessment Encounter Date Assessment Date Assessment LastModified [...] skeleton + vertebral fracture assessment 2024 025 [email or web address] [facility], [address], [place], [address], 11:10:08 US, pelvis 2024 025 [email or web address] [facility], [address], [place], [address], 5 22:02:45 US, transvagina l 2024 025 [email or web address] [facility], [address], [place], [address], 5 22:02:45 US, pelvis, complete 2024 025 [facility], [address], [place], [address], 5 11:22:17 MAMMO, screening, bilateral 2023 024 [facility], [address], [place], [address], 4 17:31:03 Medication Orders None recorded. 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 Emely nued regul ar scree dereck is the best metho d of cance r preve ntion . If repor varinder cytol ogic findi ng do not corre late with physi matias and/o r histo rical findi ngs, furth er inves tigat ion is recom selene d, as clini kristen angulo nted. Not Available [facility] (Lab) [address], [place], [address], 06/15/2023 07:59:41 09/28/19 25 09/27/2024 SURGI MATIAS PATHO LOGY surgical pathology SEE RESULT S BELOW CASE REPOR T: Surgi matias Patho logy Repor t Case: 2 Autho rafael perea Provi mich: Mercedez Hernandez MD Colle cted: 09/27 1613 Order ing Locat ion: [place] Patho logy Recei sherie: 09/28 0401 Patho logis t: Ramiro Perez MD Speci men: Jaymie schwartz m, EMB ----- ----- ----- ----- ----- [...] ng proce ss was perfo rmed at [facility] Medic ine Labor atori es site [email or web address] [...] Gross ed by Lucas araujo Not Available [facility] (Lab) [address] [place], [address], 10/01/2024 07:22:16 09/26/19 24 09/26/2023 MAMMO lenin, bilat eral No observ ation record ed. [email or web address] [place], [address], 10/05/2023 14:49:22 10/03/19 24 09/26/2023 MAMMO lenin, bilat eral No observ ation record ed. [email or web address] [place], [address], 10/11/2023 09:30:05 10/05/19 24 09/26/2023 MAMMO lenin, bilat eral No observ ation record ed. [address] [place], [address], 10/11/2023 09:31:12 10/12/19 24 10/12/2023 MAMMO , scree dereck, digit al, bilat eral No observ ation record ed. [email or web address] [facility] [address], [place], [address], 11/01/2023 11:49:09 09/07/19 25 05/21/2024 MAMMO , scree dereck, digit al, bilat eral No observ ation record ed. [email or web address] [place] [address] [address], [place], [address], 09/09/2024 10:49:56 09/11/19 25 09/10/2024 US, pelvi s No observ ation record ed. [email or web address] [facility] [address], [place], [address], 09/10/2024 16:04:46 09/11/19 25 09/10/2024 US, trans vagin al No observ ation record ed. [email or web address] [facility] [address], [place], [address], 09/10/2024 16:04:56 09/11/19 25 09/10/2024 US, pelvi s No observ ation record ed. [email or web address] [address], [place], [address], 09/12/2024 10:07:41 Result Notes None recorded. 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 12:01:[address] Concept Completed 201712/24/2020 Encntr for general adult medical exam w/o abnormal findings ;Recorde d Elsewher e: No Locat ion: [facility] S ource: EHR Sheet Manufacturing Supervisor kunal: N Practi ce ID: 0001 Pascual lable Time: 03:30:00 PM Rose Kwan [facility] 1 12:01:56 Screenin g for malignan t neoplasm of rectum Completed 201712/24/2020 Encounte r for screenin g for malignan t neoplasm of rectum;R ecorded Elsewher e: No Locat ion: [facility] S ource: EHR Sheet Manufacturing Supervisor kunal: N Practi ce ID: 0001 Pascual lable Time: 03:30:00 PM Rose Kwan [facility] 1 12:01:53 Menopaus e present [id number] Active 2018 Symptoms such as flushing , sleeples sness, headache , lack of concentr ation, associat ed with natural (age-rel ated) menopaus e;Record ed Elsewher e: No Locat ion: [facility] S ource: EHR Sheet Manufacturing Supervisor kunal: N Practi ce ID: [id number] Pascual lable Time: 02:00:00 PM Not Available [facility] 0 21:26:26 Evaluati on finding Completed 201812/24/2020 Oth abn and inconclu sive findings on dx imaging of breast;R ecorded Elsewher e: No Locat ion: [facility] S ource: EHR Sheet Manufacturing Supervisor kunal: N Practi ce ID: 0001 Pascual lable Time: 03:55:13 PM Rose [facility] 1 12:01:50 Problem Notes None recorded. Procedures Surgical History Date Name Laterality Status Provider Name and Address Organization Details Recorded Time 09/28/19 25 Endometrial Biopsy completed Den Hernandez MD [address], [place], [address], [facility] 09/27/2024 15:08:12 09/28/19 25 endometrial biopsy completed [facility] 09/27/2024 14:42:31 05/21/19 25 Date of Last Mammogram completed Lachelle Baptiste [facility] 10/02/2024 12:33:24 06/09/19 24 Date of Last Pap Smear completed [facility] 09/27/2024 14:41:19 03/31/19 96 Caesarean Section completed [facility] 09/27/2024 14:43:52 11/29/18 94 Caesarean Section completed [facility] 09/27/2024 14:43:42 03/31/19 89 delivery completed [facility] 09/27/2024 14:43:29 Imaging Results None recorded. [...] Elsewher e: Yes Loca tion: Jorgito fuller [facility] odify By: shakeel [address] ncounter DateTime : 04/02/20 18 03:30:00 PM Not Available Not Available Not Available zinc 50 mg tablet 06/08 completed Prescrib ed Elsewher e: Yes Loca tion: Jorgito fuller [facility] odify By: teresa Bello r DateTime [...] Elsewher e: Yes Loca tion: Jorgito fuller [facility] odify By: teresa Encounte r DateTime [...] Elsewher e: Yes Loca tion: Jorgito fuller [facility] odify By: teresa Gallegoste r DateTime : 07/18/19 02:00:00 PM Not Available Not Available Not Available Calcium-5 00 500 mg (as calcium carbonate 1,250 mg) tablet take 1 tablet by oral route every day 06/08 completed Prescrib ed Elsewher e: Yes Loca tion: Jorgito fuller [facility] M odify By: [email or web address] Encounte r DateTime [...] Updated DateTime 06/08/2023 154.94 cm 39.5 kg/m2 86367.81 g 158/93 mm[Hg] Tiffanie Rodriges [facility] 06/08/2023 18:06:01 Date Recorded Body height Body mass index (BMI) Body weight Systolic And Diastolic Provider Name and Address Organization Details Last Updated DateTime 09/02/2024 154.94 cm 42.1 kg/m2 479294.38 g 154/88 mm[Hg] Lachelle Baptiste [facility] 09/02/2024 17:10:36 Date Recorded Body height Body mass index (BMI) Body weight Systolic And Diastolic Provider Name and Address Organization Details Last Updated DateTime 09/27/2024 154.94 cm 41.6 kg/m2 61937.32 g 165/93 mm[Hg] Tiffanie Rodriges [facility] 09/27/2024 14:38:56 Date Recorded Body height Body mass index (BMI) Body weight Systolic And Diastolic Provider Name and Address Organization Details Last Updated DateTime 10/02/2024 154.94 cm 41.4 kg/m2 03824.45 g 150/89 mm[Hg] Lachelle Baptiste [facility] 10/02/2024 12:39:54 Social History Question Answer Notes LastModified by Organizat ion Details LastModified Time Tobacco Smoking Status Never [facility]oker [facility] 11/07/2019 11:39:08 Do You Have An [...] Or The Highest Degree You Have Received? [id number] [email or web address] Information not available 10/02/2024 Are There Any [...] 09/27/2024 Have You Used IV Drugs? Yes [email or web address] Information not available 10/02/2024 Do You Have Difficulty Walking Or Climbing Stairs? No Information not available 06/03/2022 Sex: Unknown Functional Status Question Answer Note LastModified by Organizat ion Details LastModified Time Do you use any illicit or recreational drugs? No Information not available 09/27/2024 What is your level of alcohol consumption? Occasional Information not available 09/27/2024 Are you able to walk independently without assistance or assistive devices? YESWOREST Information not available 06/03/2022 Are you able to care for yourself independently? 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 No Information not available 06/03/2022 What is your exercise level? None Information not available 06/03/2022 Mental Status Question Answer Note LastModified by Organization D etails LastModified Time Do you feel stressed (tense, restless, nervous, or anxious, or unable to sleep at night)? [id number] Information not available 09/27/2024 Family History Relationship [...] Diagnosis SNOMED-CT Code Diagnosis ICD10 Code Diagnosis IMO Codes Diagnosis Note [id number] Den Hernandez MD [facility] [address] [address] 11/07/2019 11:15:39 11/07/2019 13:24:51 Gynecologic examination [id number] Z01.419 This patient is here for her [...] l - [ done] Pap - today [id number] Den Hernandez MD [facility] [address],[facility] [place] [address] 12/24/2020 11:49:05 12/24/2020 14:05:07 Gynecologic examination 58224411 Z01.419 This patient is here for her [...] l - [done ] Pap - today [id number] Den Hernandez MD [facility] [address],[facility] [place] [address] 06/05/2021 10:53:42 06/08/2021 16:13:56 Body mass index 30+ - obesity 808877489 Z68.41 this patient is a 61-year-ol d [...] likely involve behavior and exercise changes. Female ezra amos stress incontinence 23160189 N39.3 Hyperlipidemia 23414673 E78.5 Sleep apnea 00107001 G47 .30 Pain of ri ght knee joint [id number] 86442 M25.561 [id number] Glenys Bundy [facility] [address],[place] [address] 06/03/2022 15:07:54 06/06/2022 16:20:59 Gynecologic examination 67836089 Z01.419 Take Calcium with Vitamin D 12-1500mg daily. Do monthly self breast exams. It is advised to get annual flu shot in the fall and she could obtain at [facility] or [facility]. If you haven't received the [...] rition: On [employer] program Screening mammography 24 671566 Z12.31 Female uri nary stress incontinence 28701651 N39.3 Wanted the referral she forgot last visit for JUNE consult. [id number] Glenys Bundy [facility] [address] [address] 06/08/2023 17:54:21 06/08/2023 18:38:43 Gynecologic examination 11635472 Z01.419 Take Calcium with Vitamin D 12-1500mg daily. Do monthly self breast exams. It is advised to get annual flu shot in the fall and she could obtain at [facility] or [facility]. If you haven't received the [...] Labs ordered PCPMammo ordered Screening mammography 24 675230 Z12.31 [id number] Den Hernandez MD [facility] [address],[facility] [place] [address] 09/02/2024 16:59:19 09/02/2024 17:42:45 Abnormal uterine bleeding 9086703340 9100 N93.9 Discussed possible causes of abnormal [...] care.Patie nt to RTO for WWE/pap smear. [id number] Den Hernandez MD [facility] [address] [address] 09/10/2024 15:25:25 09/10/2024 16:12:30 Abnormal uterine bleeding 7619378570 9100 N93.9 159065 [id number] Den Hernandez MD [facility] [address] [address] 09/27/2024 14:14:31 09/27/2024 15:12:32 Abnormal uterine bleeding 3571410267 9100 N93.9 [id number] Biopsy was performed. She tolerated it well. To discontinu e HRT and observe. [id number] Den Hernandez MD [facility] [address] [address] 10/02/2024 12:29:27 10/02/2024 13:27:55 Well woman health examination 017059051 Z01.419 313914 Annual gynecologi matias exam performed. Patient will [...] order given Pap smear- UTD (2023 - WNL), will repeat per ASCCP guidelines laboratory evaluation - PCP STI testing - declined Screening for osteoporosis 347352524 Z13.820 436038 Postmenopa usal bleeding 30145535 N95.0 81421 Discussed that patient's EMB from 09/27/24 was [...] Schulz Member ID Guarantor Name 10/01/2024 1 [facility] [id number] Sara Gore [id number] Enriqueta Gore 09/02/2024 1 [facility] (O) Sara Gore [id number] Enriqueta Gore 09/02/2024 1 [facility] ([facility] [id number] Enriqueta Gore [id number] Enriqueta Gore Notes Date Note Type Note Provider Name and Address Organization Details Recorded Time 4 text/html Annual Pattern Scratcher Post-MenopausalReported by PatientGenitourinary symptomsFor menopausal symptoms, patient reportsno menopausal symptomsandnormal vaginal lubrication. For vaginal bleeding, patient reportshistory of menopause having occurredandno history of post menopausal bleeding. For urinary symptoms, patient reportsno hematuria,no incontinence,no nocturia, andno urinary frequency. For vulva, patient reportsno genital lesionandno vulvar atrophy. For vagina, patient reportsnormal vaginal dischargeandno vaginal atrophy.Breast symptomsFor breast, patient reportsno breast lump,no nipple discharge, andno breast pain.Psychological symptomsFor sexual complaints, patient reportsno sexual complaints. For psychological symptoms, patient reportsno depressionandno anxiety.Preventative measuresFor preventive measures, patient reportsencourage regular mammograms starting age 40,encourage self breast examination,encourage regular exercise,encourage no tobacco use,needs to schedule mammogram, andhistory of recent colonoscopy. Glenys Bundy, [facility]- [address], [place], [address], [facility] 06/08/2023 18:37:49 5 text/html 64 y/o female presents with c/o post-menopausal bleeding.Patient states that last Monday (6 days ago) she started having vaginal bleeding with moderate flow that last two days. Patient reports lower back and pelvic cramping as well.Patient states that she has not had bleeding for nearly 20 years.Patient reports taking estradiol 1 mg tablet daily and progesterone 100 mg PO nightly, and reports that she has been taking HRT for several years and has never had PMB in the past.Patient states that she was not sure when she could stop the HRT, but she likes the progesterone since it helps her sleep.Last pap smear 06/09/23 - NILM, HPV negative.Patient states that lab work, including TSH and CBC, are UTD ordered by PCP.Denies new sexual partners, reports being in a monogamous relationship with .Neg urinary sx'sNeg GI sx'sNeg N/V/F/C/DNeg Vag d/c, odor, irritation, itching JARAD BOGGS NP [address], [place], [address], [facility] 09/02/2024 17:40:25 5 text/html 64-year-old female presents for endometrial biopsy. The procedure was explained to the patient in detail. She understands the procedure. She understands the risks, benefits, and alternatives. She has completed the informed consent process and is ready to proceed. Den Hernandez MD [address], [place], [address], [facility] 09/27/2024 15:09:10 5 text/html Annual Pattern Scratcher Post-MenopausalReported by PatientGenitourinary symptomsFor menopausal symptoms, patient reportsno menopausal symptomsandnormal vaginal lubrication. For vaginal bleeding, patient reportshistory of menopause having occurredandno history of post menopausal bleeding. For urinary symptoms, patient reportsno hematuria,no incontinence,no nocturia, andno urinary frequency. For vulva, patient reportsno genital lesionandno vulvar atrophy. For vagina, patient reportsnormal vaginal dischargeandno vaginal atrophy.Breast symptomsFor breast, patient reportsno breast lump,no nipple discharge, andno breast pain.Psychological symptomsFor sexual complaints, patient reportsno sexual complaints. For psychological symptoms, patient reportsno depressionandno anxiety.Preventative measuresFor preventive measures, patient reportsencourage regular mammograms starting age 40,encourage self breast examination,encourage regular exercise, andencourage no tobacco use. Patient presents for annual well woman exam. Patient denies concerns today.Patient reports having EMB on Monday due to post-menopausal bleeding and mildly thickened endometrium noted on TVUS. Denies bleeding since stopping estradiol. JARAD BOGGS NP [address], [place], [address], [facility] 10/02/2024 13:20:03 OBGyn Episode Ob Episode Information Episode Created Date Number of Fetuses Patient Bloodtype Patient rh Status Prepregnancy Weight lbs Domestic Partner Domestic Partner Phone Father Name Wheel Filler Status 11/07/19 20 1 CLOSED Fetus Data [...] Domestic Partner Domestic Partner Phone Father Name Wheel Filler Status 11/07/19 20 1 CLOSED Fetus Data [...] Domestic Partner Domestic Partner Phone Father Name Wheel Filler Status 11/07/19 20 1 CLOSED Fetus Data [...] Domestic Partner Domestic Partner Phone Father Name Wheel Filler Status 11/07/19 20 1 CLOSED Fetus Data [...]
== END 2025-02-20 15:38 | disposition home or self-care (01) ==
LOC: CHSIMG 15:40
PROVIDERS: PCP Nurse Practitioner Family; Visit Provider Nurse Practitioner Family
DX: M54.17 Radiculopathy, lumbosacral region (principal); M54.50 Low back pain, unspecified
CPT/HCPCS: 72100

== ENCOUNTER 2025-02-27 16:20 | Outpatient (RCR) | payer OTHER, SELFPAY ==
--- NOTE | 2025-02-27 17:42 | OPREHPOC ---
Outpatient Therapy Plan of Care This is a Multidisciplinary Plan of Care that may contain components documented by all disciplines (PT, OT, and ST.) PT Problem 1 PT Problem #1 Knowledge Deficit PT Goal 1 Goal / Goal Update Independent and compliant with HEP. Target Visit 2 PT Problem 2 PT Problem #2 Impaired Range of Motion PT Goal 1 Goal / Goal Update Pt to achieve full pain-free lumbar AROM. Target Visit 8 PT Problem 3 PT Problem #3 Impaired Strength PT Goal 1 Goal / Goal Update Pt to improve lower abdominal strength to 4/5. Pt to improve bilat hip strength to 4+/5. Pt to improve bilat flexion strength to 5/5. Target Visit 8 PT Problem 4 PT Problem #4 Impaired Functional Mobility PT Goal 1 Goal / Goal Update Pt to report being able to stand for more than 2 hours without onset of pain, numbness and tingling in anterior thigh. Pt to deny sleep interference. Pt to report ability to ascend/descend stairs with improved efficiency and steadiness. Target Visit 8
--- NOTE | 2025-02-27 17:42 | PTOPEVAL1 ---
Assessment and note entered by Ness Castellon, PT Evaluation Information Assessment Status Evaluation ICD-10 Condition Codes (PT) Pain in low back M54.50 Onset 02/06/2025 Subjective Information Pt reports she first started feeling numbness in her R thigh during 2019. She states a few weeks ago she started getting pain and burning in addition to the numbness. She states it comes on when stands for prolonged periods. 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 She reports she can stand for 45 minutes to an hour before her pain starts to kick in. She reports her symptoms are really only present when she's standing still and dissipate when she walks. She notes immediate relief of symptoms when sitting. She denies pain with bending forward. She currently denies pain while seated for subjective portion of eval. She reports that sometimes she has an aching pain when she lies down to sleep but she does not note any sleep interference. She also notes feeling unsteady when going up/down stairs and like she can't trust her legs. She is currently on a muscle relaxer and an anti-inflammatory. Reported Pain Level Pain Score 0: Self Report Assessment PT Clinical Summary Mrs. oGre is a 64 yo female presenting to skilled PT evaluation for lumbar radiculopathy. She presents with 3 week history of worsening pain , numbness and tingling in the R anterior thigh and x-ray demonstrating upper lumbar retrolisthesis and loss of disc height. She demonstrates deficits in abdominal strength and bilat hip strength that contribute to postural deviations leading to increased pressure on the lower back and foraminal compression. She will benefit from skilled PT intervention to address these deficits and improve her ability to climb stairs and stand for prolonged periods at work. Plan of Care Interventions Electrical Stimulation,Gait Training,Hot Pack/Cold Pack,Manual Therapy,Mechanical Traction,Neuro Re- education,Patient/Caregiver Education,Therapeutic Activities,Therapeutic Exercise,Self-Care/Home Management PT Services Indicated Yes Treatment Frequency and 2x/week for 8 visits Duration These treatments will address the objective and functional deficits as defined above. The patient will be advanced safely and appropriately in order for the patient to progress towards his/her prior level of function. Additional exercises will be introduced and as well as a comprehensive home exercise program upon discharge, if needed, ?to ensure carryover of functional gains achieved in the clinic. This treatment plan has been reviewed and agreement upon by the patient.
--- NOTE | 2025-03-20 16:57 | PCPTNOTE ---
Cancelled session. In too much pain. Has doctor appointment tomorrow afternoon and will call us after.
--- NOTE | 2025-03-26 09:57 | OPREHPOC ---
Outpatient Therapy Plan of Care This is a Multidisciplinary Plan of Care that may contain components documented by all disciplines (PT, OT, and ST.) PT Problem 1 PT Problem #1 Knowledge Deficit PT Goal 1 Goal / Goal Update Independent and compliant with HEP. Target Visit 2 Progress Met PT Problem 2 PT Problem #2 Impaired Range of Motion PT Goal 1 Goal / Goal Update Pt to achieve full pain-free lumbar AROM. Target Visit 8 Progress Not Met PT Problem 3 PT Problem #3 Impaired Strength PT Goal 1 Goal / Goal Update Pt to improve lower abdominal strength to 4/5. - not met Pt to improve bilat hip strength to 4+/5. -not met Pt to improve bilat knee flexion strength to 5/5. -met Target Visit 8 Progress Partially Met PT Problem 4 PT Problem #4 Impaired Functional Mobility PT Goal 1 Goal / Goal Update Pt to report being able to stand for more than 2 hours without onset of pain, numbness and tingling in anterior thigh. -met Pt to deny sleep interference. -met Pt to report ability to ascend/descend stairs with improved efficiency and steadiness. -not met Target Visit 8 Progress Partially Met
--- NOTE | 2025-03-26 09:58 | PTOPPROG ---
Assessment and note entered by Ness Castellon, PT Evaluation Information Assessment Status Progress ICD-10 Condition Codes (PT) Pain in low back M54.50 Onset 02/06/2025 Subjective Information Enriqueta reports feeling lots of improvement with PT . She reports that she has not had any pain with working for the last week and the weird feeling in her leg has gone away. She also reports being able to walk around the grocery store without any onset of pain, burning or numbness. She reports she does wake up occasionally at night when sleeping but states this is due to her hip and shoulder hurting, not her back. She reports feeling a lot of relief with mechanical traction. Regarding her ability to climb stairs, she reports that she does still feel weak and like her legs can't support her and she still tends to climb steps marking time. Assessment PT Clinical Summary Mrs. Gore has attended 8 skilled PT visits addressing lumbar radiculopathy. Since beginning PT she notes significant improvement overall in her pain. 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 She also denies radicular symptoms and has responded well to mechanical traction. She does continue to demonstrate bilateral hip and abdominal mm weakness and would benefit from continued skilled PT intervention addressing these deficits to improve hip and lumbar stability and improve independence with stair climbing. Plan of Care Interventions Electrical Stimulation,Gait Training,Hot Pack/Cold Pack,Manual Therapy,Mechanical Traction,Neuro Re- education,Patient/Caregiver Education,Therapeutic Activities,Therapeutic Exercise,Self-Care/Home Management PT Services Indicated Yes Treatment Frequency and Continue PT 1x/week for 4 additional visits Duration These treatments will address the objective and functional deficits as defined above. The patient will be advanced safely and appropriately in order for the patient to progress towards his/her prior level of function. Additional exercises will be introduced and as well as a comprehensive home exercise program upon discharge, if needed, ?to ensure carryover of functional gains achieved in the clinic. This treatment plan has been reviewed and agreement upon by the patient.
--- NOTE | 2025-04-21 11:28 | OPREHPOC ---
Outpatient Therapy Plan of Care This is a Multidisciplinary Plan of Care that may contain components documented by all disciplines (PT, OT, and ST.) PT Problem 1 PT Problem #1 Knowledge Deficit PT Goal 1 Goal / Goal Update Independent and compliant with HEP. Target Visit 2 Progress Met PT Problem 2 PT Problem #2 Impaired Range of Motion PT Goal 1 Goal / Goal Update Pt to achieve full pain-free lumbar AROM. Target Visit 8 Progress Met PT Problem 3 PT Problem #3 Impaired Strength PT Goal 1 Goal / Goal Update Pt to improve lower abdominal strength to 4/5. - not met Pt to improve bilat hip strength to 4+/5. -met Pt to improve bilat knee flexion strength to 5/5. -met Target Visit 8 Progress Partially Met PT Problem 4 PT Problem #4 Impaired Functional Mobility PT Goal 1 Goal / Goal Update Pt to report being able to stand for more than 2 hours without onset of pain, numbness and tingling in anterior thigh. -met Pt to deny sleep interference. -met Pt to report ability to ascend/descend stairs with improved efficiency and steadiness. -met Target Visit 8 Progress Met
--- NOTE | 2025-04-21 11:28 | PTOPDC ---
Assessment and note entered by JT File, PT Evaluation Information Assessment Status Discharge ICD-10 Condition Codes (PT) Pain in low back M54.50 Onset 02/06/2025 Subjective Information patient reports she feels Good today. she reports she has really had no pain in the lower back in the last few weeks. she reports she feels she is ready to be done with PT as of this date. she reports she is compliant with HEP independent at home. Reported Pain Level Pain Score 1: Self Report Assessment PT Clinical Summary mrs. burt presents to skilled PT services for her 12th skilled PT visit. she presents today with improve rom, strength, and decreased pain. patient has met or nearly met all goals for skilled PT as of this date. given her progress and lack of significant pain, she will DC skilled PT today, and continue with HEP independent at home. Plan of Care PT Services Indicated Yes
== END 2025-04-21 20:00 | disposition home or self-care (01) ==
LOC: CHSPT 16:20
PROVIDERS: PCP Nurse Practitioner Family; Visit Provider Nurse Practitioner Family
DX: M54.17 Radiculopathy, lumbosacral region (principal); M54.50 Low back pain, unspecified
CPT/HCPCS: 97012; 97110; 97112; 97140; 97150; 97161